=== PATIENT | male | born 1950 | race Caucasian/White ===

== ENCOUNTER → 2017-07-06 08:36 | Outpatient (CLI) | payer MEDICARE, OTHER, SELFPAY | PROVIDERS: Family Provider Internal Medicine; PCP Internal Medicine; Visit Provider Internal Medicine | DX: I49.3 Ventricular premature depolarization (principal) | CPT/HCPCS: 93225; 93226 ==

== ENCOUNTER → 2017-07-19 14:11 | Outpatient (CLI) | payer MEDICARE, OTHER, SELFPAY ==
[2017-07-19 15:16] LABS: Absolute Lymphocyte Count 2.45 X10^3/ul (0.83-4.51); Absolute Neutrophil Count 2.7 X10^3/uL (2.0-7.7); Basophil# 0.02 X10^3/uL; Basophil% 0.3 % (0-1); Eosinophil# 0.24 X10^3/uL; Eosinophils% 4.1 % (0-5); Hemoglobin 14.5 g/dl (13.0-16.5); Lymphocyte # 2.45 X10^3/ul (4.0); Lymphocyte % 41.7 % (19-41); Mean Corpuscular Hgb 29.5 pg (27.0-32.0); Mean Corpuscular Volume 89.4 fL (80-94); Mean Platelet Vol. 10.5 fl (6.2-12.0); Monocyte% 8.5 % (0-10); Neutrophil # 2.66 X10^3/uL (2.7-7.7); Neutrophil % 45.2 % (47-70); Platelet Count 173 K/mm3 (150-450); RBC Distribution Width CV 13.6 % (11.6-14.6); RBC Distribution Width SD 44.3 fl (35.1-43.9); Red Blood Count 4.92 M/mm3 (4.6-6.2); White Blood Count 5.9 K/mm3 (4.4-11.0)
[2017-07-19 15:42] LABS: POSITIVE COUNT NO; POSITIVE DIFFERENTIAL NO; POSITIVE MORPHOLOGY NO
[2017-07-19 15:53] LABS: Anion Gap 9 (5-15); BUN 29 mg/dL (7-18); BUN/Creat Ratio 28.2 RATIO (10-20); Calcium,Total 8.8 mg/dL (8.5-10.1); Chloride 104 mmol/L (98-107); Creatinine, Serum 1.03 mg/dL (0.70-1.30); EST Glomerular Filtration Rate 76 mL/min (>60); Est Glom Filt Rate - Afr Amer 92 mL/min (>60); Glucose 82 mg/dL (74-106); Potassium 3.8 mmol/L (3.5-5.1); Sodium Level 139 mmol/L (136-145); T4 Total, Thyroxin 9.6 ug/dL (4.5-12.1); Thyroid Stim Hormone (TSH) 1.35 uIU/mL (0.358-3.74)
[2017-07-19 16:15] LABS: BNP,B-Type NATRIURETIC PEPTIDE 96.6 pg/mL (0-100)
== END ==
PROVIDERS: Family Provider Internal Medicine; PCP Internal Medicine; Visit Provider Physician Assistant Medical
DX: I10 Essential (primary) hypertension (principal); I25.10 Atherosclerotic heart disease of native coronary artery without angina pectoris; I49.3 Ventricular premature depolarization; E78.00 Pure hypercholesterolemia, unspecified; R06.09 Other forms of dyspnea; M47.817 Spondylosis without myelopathy or radiculopathy, lumbosacral region; M51.37 Other intervertebral disc degeneration, lumbosacral region; M54.17 Radiculopathy, lumbosacral region
CPT/HCPCS: 36415; 80048; 83880; 84436; 84443; 85025; 97113

== ENCOUNTER → 2017-07-27 06:58 | Outpatient (CLI) | payer MEDICARE, OTHER, SELFPAY ==
[2017-07-27 10:30] LABS: Absolute Lymphocyte Count 1.67 X10^3/ul (0.83-4.51); Absolute Neutrophil Count 4.9 X10^3/uL (2.0-7.7); Basophil# 0.01 X10^3/uL; Basophil% 0.1 % (0-1); Eosinophil# 0.35 X10^3/uL; Eosinophils% 4.6 % (0-5); Hematocrit 43.6 % (40-54); Hemoglobin 14.7 g/dl (13.0-16.5); Lymphocyte # 1.67 X10^3/ul (4.0); Lymphocyte % 21.9 % (19-41); Mean Corp Hgb Conc 33.7 g/gl (32-36); Mean Corpuscular Hgb 30.1 pg (27.0-32.0); Mean Corpuscular Volume 89.3 fL (80-94); Mean Platelet Vol. 10.7 fl (6.2-12.0); Monocyte# 0.66 X10^3/uL; Monocyte% 8.7 % (0-10); Neutrophil % 64.4 % (47-70); Platelet Count 170 K/mm3 (150-450); RBC Distribution Width CV 13.7 % (11.6-14.6); RBC Distribution Width SD 44.2 fl (35.1-43.9); Red Blood Count 4.88 M/mm3 (4.6-6.2); White Blood Count 7.6 K/mm3 (4.4-11.0)
[2017-07-27 10:34] LABS: POSITIVE COUNT NO; POSITIVE DIFFERENTIAL NO; POSITIVE MORPHOLOGY NO
[2017-07-27 10:59] LABS: Anion Gap 10 (5-15); BUN 24 mg/dL (7-18); Calcium,Total 8.9 mg/dL (8.5-10.1); Chloride 105 mmol/L (98-107); EST Glomerular Filtration Rate 118 mL/min (>60); Est Glom Filt Rate - Afr Amer 143 mL/min (>60); Glucose 93 mg/dL (74-106); Potassium 4.1 mmol/L (3.5-5.1); Sodium Level 141 mmol/L (136-145)
--- NOTE | 2017-07-27 12:50 | STRESSREP_ITS ---
Stress Test Report Exercise myocardial perfusion stress test. 67 year old man with a history of chest pain and shortness of breath status post coronary bypass surgery in 2003. Stress protocol: Resting EKG demonstrates normal sinus rhythm with a rate of 68 bpm. Occasional premature ventricular complexes noted. Resting blood pressure is 132/80 mmHg. The patient exercised according to the modified Seth protocol total duration of 9 minutes. The maximum heart rate attained was 141 bpm which was 93% of maximum predicted heart rate the maximum workload attained was 4.6 metabolic equivalents. Patient maintained sinus rhythm throughout the recording with occasional premature ventricular complexes noted. At rest there were no ST or T -wave changes noted suggest ischemia and at peak exercise upsloping ST changes only were noted with no meet the criteria for ischemia. Resting blood pressure is 132/80 with a peak blood pressure 144/68. Myocardial perfusion protocol. 14.3 mCi of technetium 99m sestamibi was injected at rest. The patient exercised with the modified Seth protocol attaining 4.6 metabolic equivalents. At peak exercise 44.1 mCi of technetium 99m sestamibi was injected. Stress images were obtained. Stress and rest images were reconstructed and compared in the short axis vertical long and horizontal long axis. Gated images were also obtained. Perfusion SPECT analysis: Review of the stress images demonstrate normal uptake of tracer noted in the septum anterior wall and lateral wall. The mid inferior wall has a small defect noted on the stress images which totally improves on the resting images suggesting medial amount of ischemia noted in the inferior wall. No previous infarct is noted. Fair amount of GI attenuation artifact noted. Gated SPECT analysis. The gated ejection fraction is noted to be 67%. a small zone of mid inferior ischemia noted at a low workload. Conclusion: Exercise myocardial perfusion stress test with a small zone of mid inferior ischemia noted at a low workload. Preserved ejection fraction noted.
== END ==
PROVIDERS: Family Provider Internal Medicine; PCP Internal Medicine; Visit Provider Physician Assistant Medical
DX: I49.3 Ventricular premature depolarization (principal); I25.10 Atherosclerotic heart disease of native coronary artery without angina pectoris; R06.09 Other forms of dyspnea; I10 Essential (primary) hypertension; E78.00 Pure hypercholesterolemia, unspecified; R06.02 Shortness of breath; E29.1 Testicular hypofunction
CPT/HCPCS: 36415; 78452; 80048; 84403; 85025; 93017; A9500; A4216

== ENCOUNTER → 2017-08-15 08:02 | Day surgery (SDC) | payer MEDICARE, OTHER, SELFPAY ==
[2017-08-12 10:53] VITALS: BMI 31.1
--- NOTE | 2017-08-15 11:53 | CL.D_ITS ---
Patient Name: LAUREN KELLY Study Date: 08/15/2017 Performing: Daniel Sánchez MD Ht: 68.11 inches 173 cm : 1950 Wt: 205.03 lbs 93 kg Age: 67 Gender: male BSA: 2.07 PROCEDURE(S) PERFORMED FA80-DFS/COR/LV/CABG CLINICAL PROFILE AND INDICATIONS INDICATIONS: Gentleman with a history of coronary artery disease and shortness of breath as well as mild inferior ischemia Stress/Imaging Standard Exercise Stress Test: Yes Result: Positive Low Risk CAD Presentations: Symptom unlikely to be ischemic. CONCLUSIONS [place] coronary artery disease with coronary bypass graft with 4 out of 5 bypass grafts patent. Area of ischemia was noted to be in the inferior wall which appears to be well revascularized. Mild left ventricular systolic dysfunction. RECOMMENDATIONS We will continue aggressive medical therapy especially as area of ischemia is not related to the diag onal stenosis. Weight loss and risk factor modification. Above discussed with interventionalist DESCRIPTION OF PROCEDURE The patient arrived to the procedure lab. The risks and benefits of the procedure as well as a full d escription of our services here and current unavailability of surgical backup were fully explained to the patient and/or their significant other prior to the catheterization. The Timeout was completed, verifying the correct patient and procedure. The patient's procedural site was prepped and draped in the usual fashion. Local anesthetic was given subcutaneously to right groin region with Lidocaine 2%. Using a modified Seldinger technique, arterial access was obtained via the right femoral artery, a 5 Fr sheath was inserted. Left Coronary Artery selective angiography was performed in multiple views u sing a 5 Fr. JL4 catheter. Right Coronary Artery selective angiography was then performed in multiple views using a 5 Fr. 3DRC (Wilfredo) catheter. Saphenous Vein graft to the Ramus and Circumflex selec tive angiography was performed in multiple views using a 5 Fr. 3DRC (Wilfredo) catheter. Saphenous Ve in graft to the LAD selective angiography was performed in multiple views using a 5 Fr. 3DRC (Mike burnett) catheter. Saphenous Vein graft to the RCA selective angiography was performed in multiple views us ing a 5 Fr. 3DRC (Wilfredo) catheter. Left internal mammary artery graft to the DIAG 1 selective aiden ography was performed in multiple views using a 5 Fr. 3DRC (Wilfredo) catheter. Left Ventriculography was performed in BOX projection using a 5 Fr. Pigtail catheter. LV to AO pullback pressures were the n recorded.The arterial sheath was pulled and a Mynx closure device was deployed for hemostasis, with Dr Novoa assistance CORONARY ANGIOGRAPHY DOMINANCE: Right Dominant LEFT HEART ASSESSMENT Left Ventricular Ejection Fraction: by LV Gram 45 % Depressed Left Ventricular systolic function LEFT MAIN: Moderate luminal irregularities up to 50% LEFT ANTERIOR DECENDING ARTERY: MID LAD: is occluded DIAGONAL 1: Proximal - long 70-80 % Stenosis CIRCUMFLEX ARTERY: PROX CIRC: is occluded RIGHT CORONARY ARTERY: Mild luminal irregularities MID RCA: 70 % Stenosis DISTAL RCA: diffuse 70-80 GRAFTS: YOUNG graft to the 1st Diagonal atretic Saphenous Vein graft to the RPDA is patent Saphenous Vein graft to the LAD is patent Sequential graft to the OM and Ramus is patent COMPLICATIONS No Complications PROCEDURE MEDICATIONS Versed 1 mg IV Versed 1 mg IV Versed 1 mg IV Oxygen: 2 L/min via nasal cannula Baby Aspirin (81mg) 1 Tabs PO @ 08/15/2017 09:24:00 SUMMARY OF HEMODYNAMIC DATA Time AIR REST ECG 08:52:30 AO 120/73 (96) SA 10:09:20 LV 122/8, 20 10:24:57 LV 117/4, 14 10:25:04 LV 121/5, 19 10:26:04 LVp 128/12, 18 10:26:10 AOp 129/65 (92) 10:26:15 Signed By Daniel Sánchez MD On 08/15/2017 11:53:02 Daniel Sánchez MD
== END ==
PROVIDERS: Family Provider Internal Medicine; PCP Internal Medicine; Visit Provider Internal Medicine Cardiovascular Disease
DX: I25.10 Atherosclerotic heart disease of native coronary artery without angina pectoris (principal); R06.02 Shortness of breath; Z95.1 Presence of aortocoronary bypass graft; I99.8 Other disorder of circulatory system; Z86.718 Personal history of other venous thrombosis and embolism; I10 Essential (primary) hypertension; E78.5 Hyperlipidemia, unspecified; I49.3 Ventricular premature depolarization; Z82.49 Family history of ischemic heart disease and other diseases of the circulatory system; Z79.899 Other long term (current) drug therapy; R06.09 Other forms of dyspnea
CPT/HCPCS: 93459; 99152; 99153; C1760; J7040; Q9967; C1769

== ENCOUNTER 2017-08-20 09:08 | Emergency (ER) | payer MEDICARE, OTHER, SELFPAY ==
[2017-08-20 09:11] VITALS: BP 118/68; PULSE 54; RESP 16; TEMP 36.6; O2SAT 94; BMI 29.7
--- NOTE | 2017-08-20 10:01 | ED.VISSUMM ---
- ER Visit Summary Date of Service: 08/20/17 Chief Complaint: Right groin at cath site History of Present Illness: The patient is a 67 M who underwent cardiac catheterization by Dr. Sánchez on Tuesday. Patient states his Xarelto was held a week prior. He was placed on Plavix. He resumed Xarelto 2 days after cardiac catheterization, August 17. He states last evening he noted some discomfort. This morning he noted this a lump that is very painful. He denies fever, chills night sweats. He denies paresthesia, anesthesia or motor weakness. He denies any drainage from the cardiac catheterization site. He is on Xarelto secondary to 3 provoked VTE(s). Physical Examination: Examination of the right ankle area reveals cardiac catheterization site. There is a small eschar noted. There is no erythema, warmth, fluctuance, induration or lymphangitis. There is no inguinal lymphadenopathy. There is a small palpable firm nonpulsatile mass the size of a chickpea. There is no neurovascular distal findings/abnormalities. Test Results: Ultrasound of the site was performed by vt which reveals a fluid-filled cavity. There is no neck noted. The mass/cavity appears to be fluid-filled and is not compressible. Emergency Department Course and Treatment: Patient's history and findings were discussed Dr. Sánchez. Plan is to hold Xarelto until Tuesday and for patient to call Dr. Claros on Tuesday. Treatment Plan: Hold Xarelto until Tuesday Disposition: Discharged to home. Patient states he does have pain medicine at home. Impression: Bleeding post cardiac catheterization at catheterization site with small hematoma This note was generated with [employer] dictation software. It may contain incorrect words, spelling, and punctuation that were not noted in review of the chart prior to signing ED Disposition - Plan for ED Patient: Disposition: Home or Assisted Living Chief Complaint: Wound Check Instructions: ED Wound Check Post Op Bleeding, ED Post Op Pain Referrals: Kami Costa DO [Primary Care Provider] - Daniel Sánchez MD [STAFF PHYSICIAN] - As Needed Additional Instructions: Do not take any Xarelto until Tuesday. Call for his office on Tuesday to let staff know how you are doing.
--- NOTE | 2017-08-20 10:07 | ED.DCSUM_ITS ---
- ER Visit Summary Date of Service: 08/20/17 Chief Complaint: Right groin at cath site History of Present Illness: The patient is a 67 M who underwent cardiac catheterization by Dr. Sánchez on Tuesday. Patient states his Xarelto was held a week prior. He was placed on Plavix. He resumed Xarelto 2 days after cardiac catheterization, August 17. He states last evening he noted some discomfort. This morning he noted this a lump that is very painful. He denies fever, chills night sweats. He denies paresthesia, anesthesia or motor weakness. He denies any drainage from the cardiac catheterization site. He is on Xarelto secondary to 3 provoked VTE(s). Physical Examination: Examination of the right ankle area reveals cardiac catheterization site. There is a small eschar noted. There is no erythema, warmth, fluctuance, induration or lymphangitis. There is no inguinal lymphadenopathy. There is a small palpable firm nonpulsatile mass the size of a chickpea. There is no neurovascular distal findings/abnormalities. Test Results: Ultrasound of the site was performed by ma which reveals a fluid- filled cavity. There is no neck noted. The mass/cavity appears to be fluid- filled and is not compressible. Emergency Department Course and Treatment: Patient's history and findings were discussed Dr. Sánchez. Plan is to hold Xarelto until Tuesday and for patient to call Dr. Claros on Tuesday. Treatment Plan: Hold Xarelto until Tuesday Disposition: Discharged to home. Patient states he does have pain medicine at home. Impression: Bleeding post cardiac catheterization at catheterization site with small hematoma This note was generated with [employer] dictation software. It may contain incorrect words, spelling, and punctuation that were not noted in review of the chart prior to signing ED Disposition - Plan for ED Patient: Disposition: Home or Assisted Living Chief Complaint: Wound Check Instructions: ED Wound Check Post Op Bleeding, ED Post Op Pain Referrals: Kami Costa DO [Primary Care Provider] - Daniel Sánchez MD [STAFF PHYSICIAN] - As Needed Additional Instructions: Do not take any Xarelto until Tuesday. Call for his office on Tuesday to let staff know how you are doing.
[2017-08-20 10:14] VITALS: RESP 17
== END 2017-08-20 10:31 | disposition home or self-care (01) ==
LOC: ED 10:27
PROVIDERS: Emergency Provider Emergency Medicine; Family Provider Internal Medicine; PCP Internal Medicine
DX: L76.22 Postprocedural hemorrhage of skin and subcutaneous tissue following other procedure (principal); L76.32 Postprocedural hematoma of skin and subcutaneous tissue following other procedure; I25.10 Atherosclerotic heart disease of native coronary artery without angina pectoris; I10 Essential (primary) hypertension; E11.9 Type 2 diabetes mellitus without complications; Z79.01 Long term (current) use of anticoagulants; Z79.84 Long term (current) use of oral hypoglycemic drugs; Z79.82 Long term (current) use of aspirin; Z79.899 Other long term (current) drug therapy
CPT/HCPCS: 99282

== ENCOUNTER 2017-09-08 08:00 | Outpatient (RCR) | payer MEDICARE, OTHER, SELFPAY ==
--- NOTE | 2017-07-15 12:32 | HP.PTEVAL ---
Patient's Visit Information LAUREN KELLY is a 67 year old M referred to Physical Therapy by MD REUBEN Villavicencio with a diagnosis of lumbosacral spondylosis, intervetebral disc degeneration lumbosacral, radic. Date of Evaluation: 07/15/17 Physical Therapist: Mg Caballero - Visit Plan Frequency: 2x /Week Duration: 4 Weeks Plan: Start with core strengthening, extension progression, deep water hanging, general mobility in aquatic setting. Progressing to land as tolerated. - Subjective Subjective: Pt. is here today for his initial evaluation with diagnosis of lumbosacral spondylosis, intervetebral disc degeneration lumbosacral, radiculopathy of lumbosacral region. Pt. is a plesant 67 y.o. male who reports having increased pain over the last 8-10 weeks, but has a history of back pain. He reports curently having LBP and radiaiting symptoms down his L leg. He reports pain is intermittent and has notice increased limping with gait. Pt. denies mechanism of injury, but has had a gradual increase in symptoms. He is however been able to skii without much issues. Increases pain: bending, lifting, twisting, walking, prolonged sitting. Decreased symptoms: lying on back with knee bent Pt. did have recent injection with 5-6 days of relief.. Previously he was able to complete press ups with good reduction in symptoms, but not currently. He denies B/B changes, but does have tingling into LEs. Pt. reports no saddle region pain. Pt. is hopeful to reduce symptoms in order to get back to PLOF without issues. - Pain Lumbar spine Pain Intensity (Out of 10): 4 Pain Intensity Range: 2, 8 L leg Pain Intensity (Out of 10): 3 Pain Intensity Range: 0, 8 - Objective POSTURE: Pt. has normal iliac crest heights, pt. has reduced lumbar lordosis with sway back positioning. Pt. has equal WBing throughout LEs. Pt. tends to have L knee in slight knee flexion. PALPATION: Pt. has increased tenderness with palpation fo lumbar erector spinea, increased pain at gluteal region on L side, non on R side. PT. has no pain at greater trochanter. Pt. has mild increase in symptoms with spring testing to L3-S1, with hypombility noted. NEUROLOGICAL: Pt. has slight reduction in sensation at left distal lateral leg with ligth touch, normal thoruhgout legs with sharp touch. Pt. has 2+ R achilles adn patellar DTR, pt. has 1+ L achilles and 2+ L patellar DTR. Pt. is able to rise on heels and toes without LOB, but requires balance aide to complete. ROM: LUMBAR SPINE: flexion- min loss increase NW, ext mod loss increase NW, rotation min loss bilat increase NW, SB min loss bilat increase NW. Pt. has tight B hamstrings and hip flexors. Normal hip ROM bilaterally. MMT: RLE- ankle/knee 5/5 throughout; hip- flexion 4+/5 increase NW, abd 4/5, ext 4/. LLE- ankle Df 5/5, PF 4+/5, knee- ext 4+/5, flexion 5/5; hip- flexion 4/5, increase NW, abd 4/5 NE, ext 4+/5. Core strength- poor. GAIT: Pt. ambulates without AD, but has lateral fall off onto LLE. Pt. has slight lag in quad activtation during initial contact and stance phase. STAIRS: Pt. is able to negotiate wtih reciprocal pattern with use of B HR. - Special Tests L/S Slump test left side: Positive L/S Slump test right side: Negative L/S Left Straight Leg Raise: Negative L/S Right Straight Leg Raise: Negative Lumbar Standing: Flexion - Mechanical Response: No effect Lumbar Standing: Flexion - Symptoms During Testing: Increases Lumbar Standing: Flexion - Symptoms After Testing: No worse Lumbar Standing: Extension - Mechanical Response: No effect Lumbar Standing: Extension - Symptoms During Testing: Increases Lumbar Standing: Extension - Symptoms After Testing: No worse Lumbar Standing: Right Side Glides - Mechanical Response: No effect Lumbar Standing: Right Side [place] - Symptoms During Testing: No effect Lumbar Standing: Right Side [place] - Symptoms After Testing: No effect Lumbar Standing: Left Side [place] - Mechanical Response: No effect Lumbar Standing: Left Side [place] - Symptoms During Testing: No effect Lumbar Standing: Left Side [place] - Symptoms After Testing: No effect Lumbar Lying: Flexion - Mechanical Response: No effect Lumbar Lying: Flexion - Symptoms During Testing: No effect Lumbar Lying: Flexion - Symptoms After Testing: No effect Lumbar Lying: Extension - Mechanical Response: No effect Lumbar Lying: Extension - Symptoms During Testing: Abolishes Lumbar Lying: Extension - Symptoms After Testing: No worse Lumbar Static: Slouched Sit - Mechanical Response: No effect Lumbar Static: Slouched Sit - Symptoms During Testing: No effect Lumbar Static: Slouched Sit - Symptoms After Testing: No effect Lumbar Static: Sitting Erect - Mechanical Response: No effect Lumbar Static: Sitting Erect - Symptoms During Testing: No effect Lumbar Static: Sitting Erect - Symptoms After Testing: No effect Lumbar Static:Lying Prone in Extension - Mechanical Response: No effect Lumbar Static: Lying Prone in Extension - Sx During Testing: Increases Lumbar Static: Lying Prone in Extension - Sx After Testing: No worse - Goals Goal 1:: Pt. to be I with HEP. Goal Time Frame: 4-6 Weeks Goal 2:: Pt. to have increased lmbar ROM by 25% throughout allowing for increased tolerance to all functional ADLs. Goal Time Frame: 4-6 Weeks Goal 3:: Pt. to walk unlimited distances without increase in symptoms allowing for increased independence in community. Goal Time Frame: 4-6 Weeks Goal 4:: Pt. to sleep without increase in symptoms allowing for increased quality of life. Goal Time Frame: 4-6 Weeks Goal 5:: Pt. to have increased BLE and core strength by 1/2 grade of all effected musculature reducing stress applied to lumbar spine. Goal Time Frame: 4-6 Weeks - Rehabilitation Potential Physical Therapy Diagnosis: Pt. has signs and symptoms consistent with lumbar nerve issues, which appears to be discogenic in nature. Pt. is not tolerating extension currently and may need to start in aquatic setting to reduce symptoms then progress to land. Pt. has difficulty walking and increased LLE pain and weakness. He would benefit from Pt to address above limiations and progress back to PLOF. Rehabilitation Potential: Fair - Anticipated Interventions Patient/Client Instruction: Educate patient on: Condition, Plan of Care, Risk Factors, Benefits of Fitness Program For the Purpose of:: To improve decision making, To facilitate caregiver knowledge, To improve self management, To prevent re-injury, To improve ability to perform tasks related to life management, To improve tolerance to ADL's Therapeutic Exercise to Include: Strength training, Power training, Agility training, Flexibilty training, In an aquatic setting, Passive ROM, Active ROM, Dynamic Lumbar Stabilization, Carmen Exercises For the Purpose of:: To decrease pain, To decrease swelling/inflammation, To increase ROM, To improve nutrient delivery to tissue, To increase oxygenation perfusion, To improve ability to perform ADL's, To increase tolerance to activity/condition/position, To improve health of tissue, To decrease soft tissue restriction, To increase flexibility/ROM Manual Therapy Techniques to Include: Mobilization, Passive ROM, Functional dry needling, Soft tissue mobilization For the Purpose of:: To decrease pain, To increase ROM, To improve nutrient delivery to tissue, To increase oxygenation perfusion, To improve muscle performance and motor function IF ES: Yes Cryotherapy (ice pack, ice massage): Yes For the Purpose of:: To decrease pain, To increase ROM, To improve nutrient delivery to tissue, To increase oxygenation perfusion Thank you for the opportunity to evaluate your patient. For Medicare and Medicare HMO plans, please review the plan of care and approve it. It will need to be FAXED BACK to us at [phone] for Medicare purposes. Please let me know if there are questions or concerns regarding this plan of care. Physician Signature: Date:
--- NOTE | 2017-09-19 07:37 | HP.PTREVAL_ITS ---
Anthony Lemon MD, It has been my pleasure to treat LAUREN KELLY over the last 7 visits for lumbosacral spondylosis, intervetebral disc degeneration lumbosacral, radic. Please see the progress note below for an update on the physical therapy plan of care! Subjective: Pt. reports I am doing a little better, but I still get back with bending backward and with longer walks. Pt. reports being sick and was unable to attend PT. Pt. continues to have increased pain in L leg with prolonged walking and numbness during same time frame. Pt. did report occassional feeling like him leg wants to give out on him. Objective/Function: LUMBAR ROM: flexion- nil loss NE, ext mod loss increase NW ( peripherilizes symtpoms), SB ni loss bilat NE, rotations min loss NE bilat. HIP ROM- normal bilaterally NE. MMT- RLE- ankle 5/5 throughout; knee- ext 5/5, flexion 5-/5; hip- flexion 4+/5, abd 4/5, ext 4+/5. LLE- ankle PF 5/5, DF 4+/5; knee- ext 4+/5, flexion 4+/5; hip- flexion 4/5 increase NW, abd 4/5, ext 4/5. Gait: pt. has sway back positioning. Pt. walks with antalgic pattern during L stance phase. Pt. reports increased pain during L stance phase. Disscussed following up with physician due to neural symptoms and leg giving out on him, pt. consents. Plan Plan: Disscussed following up with physician due to neural symptoms and leg giving out on him, pt. consents. pt. to follow up with physician at this point in time. I will Dc in 3-4 weeks if pt. does not return. Goals Goal 1:: Pt. to be I with HEP. Goal Time Frame: 4-6 Weeks Goal Progress: Goal Met Goal 2:: Pt. to have increased lmbar ROM by 25% throughout allowing for increased tolerance to all functional ADLs. Goal Time Frame: 4-6 Weeks Goal Progress: Progressing Goal 3:: Pt. to walk unlimited distances without increase in symptoms allowing for increased independence in community. Goal Time Frame: 4-6 Weeks Goal Progress: Not Progressing Goal 4:: Pt. to sleep without increase in symptoms allowing for increased quality of life. Goal Time Frame: 4-6 Weeks Goal Progress: Progressing Goal 5:: Pt. to have increased BLE and core strength by 1/2 grade of all effected musculature reducing stress applied to lumbar spine. Goal Time Frame: 4-6 Weeks Goal Progress: Progressing Anticipated Interventions Patient/Client Instruction: Educate patient on: Condition, Plan of Care, Risk Factors, Benefits of Fitness Program For the Purpose of:: To improve decision making, To facilitate caregiver knowledge, To improve self management, To prevent re-injury, To improve ability to perform tasks related to life management, To improve tolerance to ADL's Therapeutic Exercise to Include: Strength training, Power training, Agility training, Flexibilty training, In an aquatic setting, Passive ROM, Active ROM , Dynamic Lumbar Stabilization, Carmen Exercises For the Purpose of:: To decrease pain, To decrease swelling/inflammation, To increase ROM, To improve nutrient delivery to tissue, To increase oxygenation perfusion, To improve ability to perform ADL's, To increase tolerance to activity/condition/position, To improve health of tissue, To decrease soft tissue restriction, To increase flexibility/ROM Manual Therapy Techniques to Include: Mobilization, Passive ROM, Functional dry needling, Soft tissue mobilization For the Purpose of:: To decrease pain, To increase ROM, To improve nutrient delivery to tissue, To increase oxygenation perfusion, To improve muscle performance and motor function IF ES: Yes Cryotherapy (ice pack, ice massage): Yes For the Purpose of:: To decrease pain, To increase ROM, To improve nutrient delivery to tissue, To increase oxygenation perfusion Please do not hesitate to contact me at [phone] by phone or Fax: if you have questions or concerns regarding this new plan of care! Sincerely, Mg Caballero
--- NOTE | 2018-03-09 10:48 | HP.PT.NRP ---
HP - Discharge Summary (1) - Patient Information LAUREN KELLY was seen in my office for initial evaluation on 07/15/17. The following Plan of Care was established for this patient: Initial Frequency: 2x /Week Initial Duration: 4 Weeks - Anticipated Interventions Patient/Client Instruction: Educate patient on: Condition, Plan of Care, Risk Factors, Benefits of Fitness Program For the Purpose of:: To improve decision making, To facilitate caregiver knowledge, To improve self management, To prevent re-injury, To improve ability to perform tasks related to life management, To improve tolerance to ADL's Therapeutic Exercise to Include: Strength training, Power training, Agility training, Flexibilty training, In an aquatic setting, Passive ROM, Active ROM, Dynamic Lumbar Stabilization, Carmen Exercises For the Purpose of:: To decrease pain, To decrease swelling/inflammation, To increase ROM, To improve nutrient delivery to tissue, To increase oxygenation perfusion, To improve ability to perform ADL's, To increase tolerance to activity/condition/position, To improve health of tissue, To decrease soft tissue restriction, To increase flexibility/ROM Manual Therapy Techniques to Include: Mobilization, Passive ROM, Functional dry needling, Soft tissue mobilization For the Purpose of:: To decrease pain, To increase ROM, To improve nutrient delivery to tissue, To increase oxygenation perfusion, To improve muscle performance and motor function IF ES: Yes Cryotherapy (ice pack, ice massage): Yes For the Purpose of:: To decrease pain, To increase ROM, To improve nutrient delivery to tissue, To increase oxygenation perfusion This patient was last seen in our office 12/15/17. Pertinent comments regarding their Physical therapy will appear below: Pt. was treated for his low back pain. Pt. was having mild relief with PT and was to follow up with physician about injections. Pt. has not been back in several months and will be DC from PT at this point in time. At this point I will be discontinuing this patient from physical therapy. I would be happy to see this patient again in the future if found appropriate by the physician. Thank you! Mg Caballero
== END 2017-09-08 19:00 | disposition home or self-care (01) ==
LOC: PT 08:00
PROVIDERS: Family Provider Internal Medicine; PCP Internal Medicine; Visit Provider Anesthesiology Pain Medicine
DX: M47.817 Spondylosis without myelopathy or radiculopathy, lumbosacral region (principal); M51.37 Other intervertebral disc degeneration, lumbosacral region; M54.17 Radiculopathy, lumbosacral region
CPT/HCPCS: 97110; 97113; 97162; 97530

== ENCOUNTER 2018-04-12 13:51 | Outpatient (RCR) | payer MEDICARE, OTHER, SELFPAY | END 2018-04-12 19:00 | disposition home or self-care (01) | LOC: PT 13:51 | PROVIDERS: Family Provider Internal Medicine; PCP Internal Medicine; Referring Provider Nurse Practitioner Family; Visit Provider Nurse Practitioner Family | DX: M47.817 Spondylosis without myelopathy or radiculopathy, lumbosacral region (principal); M51.37 Other intervertebral disc degeneration, lumbosacral region; M54.17 Radiculopathy, lumbosacral region ==

== ENCOUNTER → 2018-05-08 16:23 | Outpatient (CLI) | payer MEDICARE, OTHER, SELFPAY ==
[2018-02-15 12:10] VITALS: BMI 29.6
--- NOTE | 2018-05-08 16:28 | RAD_ITS ---
STUDY: X-RAY CHEST REASON FOR EXAM: Male, 68 years old. Asthma TECHNIQUE: Frontal and lateral views of the chest COMPARISON: 06/16/2017 FINDINGS: The lungs are clear. There are no pleural effusions. There is no pneumothorax. The heart is normal in size. Again noted are sternotomy wires. RAD/Chest PA and Lateral IMPRESSION: No acute thoracic pathology. Electronically Signed: Duc Trinidad, at 17:01 EST Tel , Service support ,
== END ==
PROVIDERS: Family Provider Internal Medicine; PCP Internal Medicine; Referring Provider Nurse Practitioner; Visit Provider Nurse Practitioner
DX: J45.41 Moderate persistent asthma with (acute) exacerbation (principal)
CPT/HCPCS: 71046

== ENCOUNTER 2018-08-08 09:00 | Outpatient (RCR) | payer MEDICARE, OTHER, SELFPAY ==
--- NOTE | 2018-06-29 16:27 | HP.PTEVAL_ITS ---
Patient's Visit Information LAUREN KELLY is a 68 year old M referred to Physical Therapy by DANIEL Velasco with a diagnosis of L SI dysfunction. Date of Evaluation: 06/09/18 Physical Therapist: Mg Caballero DPT - Visit Plan Frequency: 1-2x /Week Duration: 4-6 Weeks Plan: Start with US to R SI and piriformis muscle. Core stability exercises. Focus on calming symptoms then progressing core stability around it. - Subjective Findings: Pt. is here today for his initial evaluation with diagnosis of sacral pain, disorder. Pt. reports having a nerve ablasion with good results, but is now having some L sided SI and radiating pain. Pt. reports increased pain with walking, sitting, lifting. Pt. reports pain into his buttock and slightly down his leg at times. Pt. reports having relief with lying down. He reports having a constant symptosm of 3/10, but shocking pain at times which is 8-9/10. Pt. is hopeful to reduce symptoms in order to get back to all recreational activities without limitations. - Pain L side of SI Pain Intensity (Out of 10): 3 Pain Intensity Range: 2, 6 - Objective POSTURE: Pt. has sway back posture in stance. Decreased glute muscle mass, anterior pelvic tilt. PALPATION: PT. has increased tenderness at R sided R, R sided paraspinals and R sided gluteal region. NEURO: Pt. has normal senstation throughout BLEs. Normal DTR of BLEs. Pt. is able to rise on heels and toes. ROm: Lumbar spine: flexion mod loss increase nW, ext mod loss increase nW, SB nil loss NE, rotaion min loss NE. Pt. has decreased L hip IR (30deg), ER 45deg NE. Pt. has increased tightness in his HS and decreased hip flexor length. MMT: Pt. has 5/5 strength throughout BLEs, except hip abd 4/5 bilat, hip ext 4/5 bilat. Core stregth- poor. - Special Tests L/S Slump test left side: Negative L/S Slump test right side: Negative L/S Left Straight Leg Raise: Negative L/S Right Straight Leg Raise: Negative Lumbar Standing: Flexion - Mechanical Response: No effect Lumbar Standing: Flexion - Symptoms During Testing: Increases Lumbar Standing: Flexion - Symptoms After Testing: No worse Lumbar Standing: Extension - Mechanical Response: No effect Lumbar Standing: Extension - Symptoms During Testing: Increases Lumbar Standing: Extension - Symptoms After Testing: No worse Lumbar Lying: Flexion - Mechanical Response: No effect Lumbar Lying: Flexion - Symptoms During Testing: Decreases Lumbar Lying: Flexion - Symptoms After Testing: Better Lumbar Lying: Extension - Mechanical Response: No effect Lumbar Lying: Extension - Symptoms During Testing: Increases Lumbar Lying: Extension - Symptoms After Testing: No worse Lumbar Static: Slouched Sit - Mechanical Response: No effect Lumbar Static: Slouched Sit - Symptoms During Testing: No effect Lumbar Static: Slouched Sit - Symptoms After Testing: No effect Lumbar Static: Sitting Erect - Mechanical Response: No effect Lumbar Static: Sitting Erect - Symptoms During Testing: No effect Lumbar Static: Sitting Erect - Symptoms After Testing: No effect - Goals Goal 1:: Pt. to be I with HEP. Goal Time Frame: 4-6 Weeks Goal 2:: Pt. to walk unlimited distances without incerase in symptoms. Goal Time Frame: 4-6 Weeks Goal 3:: Pt. to have increased core stregnth by 1/2 grade to reduce stress applied to lumbar spine with all functional mobility. Goal Time Frame: 4-6 Weeks Goal 4:: Pt. to have increased lumbar spine ROM by 25% in all ranges without increase in symptoms. Goal Time Frame: 4-6 Weeks Goal 5:: Pt. to sleep throughout the night without increase in symptoms. Goal Time Frame: 4-6 Weeks - Rehabilitation Potential Physical Therapy Diagnosis: Pt. has signs and symptoms of L SI pain, piriformis pain. Pt. is highly irritable in this region. Pt. has incraesed pain with piriformis palpation. Pt. has tightness in this region as well. Pt. would benefit from PT to reduce irritability of symptoms in this region, increase core strength. Rehabilitation Potential: Good - Anticipated Interventions Patient/Client Instruction: Educate patient on: Condition, Plan of Care, Risk Factors, Benefits of Fitness Program For the Purpose of:: To improve decision making, To facilitate caregiver knowled ge, To improve self management, To prevent re-injury, To improve ability to perform tasks related to life management, To improve tolerance to ADL's Therapeutic Exercise to Include: Strength training, Power training, Endurance training, Body mechanics, Postural training, Flexibilty training, Gait and locomotor training, Passive ROM, Active ROM, Dynamic Lumbar Stabilization, Carmen Exercises For the Purpose of:: To decrease pain, To decrease swelling/inflammation, To increase ROM, To improve nutrient delivery to tissue, To increase oxygenation perfusion, To improve health of tissue, To decrease soft tissue restriction, To increase flexibility/ROM Manual Therapy Techniques to Include: Mobilization, Passive ROM, Functional dry needling, Soft tissue mobilization For the Purpose of:: To decrease pain, To decrease swelling/inflammation, To increase ROM, To improve nutrient delivery to tissue, To increase oxygenation perfusion, To improve muscle performance and motor function Other electric stimulation: Yes Cryotherapy (ice pack, ice massage): Yes Thermo therapy (hot pack): Yes Ultrasound (thermal/non thermal): Yes For the Purpose of:: To decrease pain, To decrease swelling/inflammation, To increase ROM, To improve nutrient delivery to tissue, To increase oxygenation perfusion Thank you for the opportunity to evaluate your patient. For Medicare and Medicare HMO plans, please review the plan of care and approve it. It will need to be FAXED BACK to us at [phone] for Medicare purposes. For Medicare only, by signing this I certify the plan of care. Please let me know if there are questions or concerns regarding this plan of care. Physician Signature: Da te:
--- NOTE | 2018-08-08 15:18 | HP.PTREVAL_ITS ---
Marjorie Alex, DANIEL, It has been my pleasure to treat LAUREN KELLY over the last 8 visits for L SI dysfunction. Please see the progress note below for an update on the physical therapy plan of care! Subjective: Pt. reports he is getting an injection in 2 weeks. Pt. would like to complete HEP on own until after his injection. Pt. reports Objective/Function: Pt. tolerated all Pt without adverse reaction. Pt. was given above exercises for his HEP. Pt. is independent with them at this point in time. He is to have an injection in two weeks. He is to follow up with PT if needed. It I do not see him in 3-4 weeks I will assume he is doing well and will DC his case back to physician. Plan Plan: Extended POC x1 per week for 3-4 more weeks. Focsu on core stbaility, glute activitation, decreased L posterior symptoms. Goals Goal 1:: Pt. to be I with HEP. Goal Time Frame: 4-6 Weeks Goal Progress: Goal Met Goal 2:: Pt. to walk unlimited distances without incerase in symptoms. Goal Time Frame: 4-6 Weeks Goal Progress: Progressing Goal 3:: Pt. to have increased core stregnth by 1/2 grade to reduce stress applied to lumbar spine with all functional mobility. Goal Time Frame: 4-6 Weeks Goal Progress: Progressing Goal 4:: Pt. to have increased lumbar spine ROM by 25% in all ranges without increase in symptoms. Goal Time Frame: 4-6 Weeks Goal Progress: Not Progressing Goal 5:: Pt. to sleep throughout the night without increase in symptoms. Goal Time Frame: 4-6 Weeks Goal Progress: Progressing Anticipated Interventions Patient/Client Instruction: Educate patient on: Condition, Plan of Care, Risk Factors, Benefits of Fitness Program For the Purpose of:: To improve decision making, To facilitate caregiver knowledge, To improve self management, To prevent re-injury, To improve ability to perform tasks related to life management, To improve tolerance to ADL's Therapeutic Exercise to Include: Strength training, Power training, Endurance training, Body mechanics, Postural training, Flexibilty training, Gait and locomotor training, Passive ROM, Active ROM, Dynamic Lumbar Stabilization, Carmen Exercises For the Purpose of:: To decrease pain, To decrease swelling/inflammation, To increase ROM, To improve nutrient delivery to tissue, To increase oxygenation perfusion, To improve health of tissue, To decrease soft tissue restriction, To increase flexibility/ROM Manual Therapy Techniques to Include: Mobilization, Passive ROM, Functional dry needling, Soft tissue mobilization For the Purpose of:: To decrease pain, To decrease swelling/inflammation, To increase ROM, To improve nutrient delivery to tissue, To increase oxygenation perfusion, To improve muscle performance and motor function Other electric stimulation: Yes Cryotherapy (ice pack, ice massage): Yes Thermo therapy (hot pack): Yes Ultrasound (thermal/non thermal): Yes For the Purpose of:: To decrease pain, To decrease swelling/inflammation, To increase ROM, To improve nutrient delivery to tissue, To increase oxygenation pe rfusion Please do not hesitate to contact me at [phone] by phone or if you have questions or concerns regarding this new plan of care! Sincerely, ANTHONY CalvilloT
--- NOTE | 2018-10-10 07:20 | HP.PT.NRP ---
HP - Discharge Summary (1) - Patient Information LAUREN KELLY was seen in my office for initial evaluation on 06/09/18. The following Plan of Care was established for this patient: Initial Frequency: 1-2x /Week Initial Duration: 4-6 Weeks - Anticipated Interventions Patient/Client Instruction: Educate patient on: Condition, Plan of Care, Risk Factors, Benefits of Fitness Program For the Purpose of:: To improve decision making, To facilitate caregiver knowledge, To improve self management, To prevent re-injury, To improve ability to perform tasks related to life management, To improve tolerance to ADL's Therapeutic Exercise to Include: Strength training, Power training, Endurance training, Body mechanics, Postural training, Flexibilty training, Gait and locomotor training, Passive ROM, Active ROM, Dynamic Lumbar Stabilization, Carmen Exercises For the Purpose of:: To decrease pain, To decrease swelling/inflammation, To increase ROM, To improve nutrient delivery to tissue, To increase oxygenation perfusion, To improve health of tissue, To decrease soft tissue restriction, To increase flexibility/ROM Manual Therapy Techniques to Include: Mobilization, Passive ROM, Functional dry needling, Soft tissue mobilization For the Purpose of:: To decrease pain, To decrease swelling/inflammation, To increase ROM, To improve nutrient delivery to tissue, To increase oxygenation perfusion, To improve muscle performance and motor function Other electric stimulation: Yes Cryotherapy (ice pack, ice massage): Yes Thermo therapy (hot pack): Yes Ultrasound (thermal/non thermal): Yes For the Purpose of:: To decrease pain, To decrease swelling/inflammation, To increase ROM, To improve nutrient delivery to tissue, To increase oxygenation perfusion This patient was last seen in our office 08/08/18. Pertinent comments regarding their Physical therapy will appear below: Pt. was treated for his sacral pain. Pt. was treated with US, and core stability. Pt. made ligth gains with PT, but had better results with injections. Pt. was to follow up with physician to have injection and follow up with PT if needed. PT. has not been seen in several months and will be DC from PT at this point in time. At this point I will be discontinuing this patient from physical therapy. I would be happy to see this patient again in the future if found appropriate by the physician. Thank you! Mg Caballero, ADEEL
== END 2018-08-08 19:00 | disposition home or self-care (01) ==
LOC: PT 09:00
PROVIDERS: Family Provider Internal Medicine; PCP Internal Medicine; Referring Provider Nurse Practitioner Family; Visit Provider Nurse Practitioner Family
DX: M47.817 Spondylosis without myelopathy or radiculopathy, lumbosacral region (principal); M51.37 Other intervertebral disc degeneration, lumbosacral region; M54.17 Radiculopathy, lumbosacral region; M53.3 Sacrococcygeal disorders, not elsewhere classified
CPT/HCPCS: 97035; 97110; 97161; 97530

== ENCOUNTER 2019-01-07 08:58 | Emergency (ER) | payer MEDICARE, OTHER, SELFPAY ==
[2018-12-11 08:36] VITALS: BMI 31.3
[2019-01-07 08:59] VITALS: BP 146/72; PULSE 70; RESP 18; TEMP 36.1; O2SAT 96; BMI 30.4
[2019-01-07 09:25] LABS: Mucous, Urine 0 SEEN /hpf (<or=2+)
[2019-01-07 09:27] LABS: Color, Urine Yellow (Yellow); Glucose, Dipstick Normal (Normal); Ketone-Dipstick Negative (Negative); Leukocyte Esterase-Dipstick 500 /ul (Negative); Nitrite-Dipstick Positive (Negative); Occult Blood-Urine 250 /ul (Negative); Protein-Dipstick 100 mg/dl (Negative); Urine Bilirubin Dipstick Negative (Negative); Urine Clarity Cloudy (Clear); Urine Urobilinogen Normal (Normal); Urine pH 6.5 (5.0 - 8.0)
[2019-01-07 09:33] LABS: Bacteria 1+ /hpf (None Seen); Red Blood Cells-Urine 25-50 SEEN /hpf (0-5); Squamous Epithelial Cells - UA 0-5 SEEN /hpf (0-5); White Blood Cells 25-50 SEEN /hpf (0-5)
--- NOTE | 2019-01-07 10:03 | ED.VIS.GEN ---
History of Present Illness Informant: Patient Onset: Yesterday Context: Gradual Onset Timing: Continuous Quality: Aching Location: Scrotum Current Severity: Moderate Maximum Severity: Moderate Worsened by: Movement and palpation Relieved by: Rest Associated Symptoms: Dysuria, frequency and urgency Narrative: 68-year-old male presents to the emergency department with swelling and pain of his scrotum worse on the right. He also is having dysuria with frequency and urgency. He has been able to urinate but it does take him slightly longer to empty his bladder than what is normal for him. No fevers or chills. No trauma. No back pain. Has a history of similar symptoms 3 years ago that required a urologic procedure per the patient to relieve symptoms. No recent antibiotic use. No penile discharge. Prior similar symptoms: Yes Recent Illness/Hospitalization: No <Damian Fu - Last Filed: 01/07/19 13:33> <Char Downing - Last Filed: 01/07/19 15:12> Chief Complaint: Complaint Past Medical History Prior records reviewed: Yes Past Medical History: - - CAD, T2DM Surgical History: - - CABG Smoking Status: Never smoker - Family History Maternal Family History: Family History (Last Reviewed 12/11/18 @ 08:44 by Michelle Hoyos) Father Myocardial infarction CAD (coronary artery disease) Brother Hypertension Family History: Reports: Heart Disease <Damian Fu - Last Filed: 01/07/19 13:33> - Family History Maternal Family History: Family History (Last Reviewed 12/11/18 @ 08:44 by Michelle Hoyos) Father Myocardial infarction CAD (coronary artery disease) Brother Hypertension <Char Downing - Last Filed: 01/07/19 15:12> - Allergies and Home Meds Allergies/Adverse Reactions: Allergies simvastatin Adverse Reaction (Severe, Verified 01/07/19 08:59) Myalgias,severe Primary Care Physician: Braxton Ken MD [STAFF PHYSICIAN] - Kami Costa DO [Primary Care Provider] - Review of Systems All systems negative except as indicated Genitourinary: Reports: Dysuria, Frequency, - - scrotal pain and swelling <Damian Fu - Last Filed: 01/07/19 13:33> Physical Exam Vital Signs/Narrative: Vital Signs Temp Pulse Resp BP Pulse Ox 01/07/19 08:59 97.0 F L 70 18 146/72 H 96 Inital Vital Signs reviewed: Yes General: Well nourished, Well developed, No Acute Distress Head: Normocephalic, Atraumatic Eyes: Perrl, EOMI ENT: Moist mucous membranes Neck: Supple, Nontender Cardiovascular: Regular rate, Regular rhythm Respiratory: No distress, CTA bilaterally, Chest nontender Abdomen: Soft, Nontender, Nondistended, Normal bowel sounds, No masses : - - Scrotum is swollen. There is no redness. Pain on palpation of the right testicle. There is no overlying crepitus or gangrenous tissue. There is no swelling or redness of the groin. No penile discharge. Back: Nontender Extremities: Nontender, No edema Skin: Normal color, No rash Neurological: Alert, Oriented x3 <Damian Fu - Last Filed: 01/07/19 13:33> Vital Signs/Narrative: Vital Signs Temp Pulse Resp BP Pulse Ox 01/07/19 13:55 98.4 F 67 16 135/75 H 97 01/07/19 12:57 65 18 117/76 96 <Char Downing - Last Filed: 01/07/19 15:12> Diagnostic/Tx/Re-eval - Medical Decision Making Patient declined analgesia. Urinalysis consistent with a urinary tract infection. Patient was given Rocephin for this. Basic laboratory work-up was unremarkable. Ultrasound of the scrotum showed hydrocele with normal testicles bilaterally and a left epididymal cyst. I spoke with urologist on-call Dr. Roland to arrange for close outpatient follow-up. We will place the patient on Cipro. First dose given in the ED. Urine culture was sent. Patient has not had any worsening of his swelling or pain of the scrotum and again on repeat evaluation no signs of Nicolasa's gangrene or abscess. He will be discharged home with close follow-up or he will return here to the emergency department for worsening symptoms which were discussed. <Damian Fu - Last Filed: 01/07/19 13:33> - Medical Decision Making Patient seen and evaluated with PA. Patient presents with dysuria and scrotal swelling. He had similar symptoms in the past that required urologic surgery for drainage. Patient is in no acute distress and nontoxic-appearing. Heart is regular rate and rhythm. Lung sounds clear. Abdomen is soft with mild suprapubic tenderness. Lab work, urinalysis, and ultrasound imaging is obtained. Patient is given antibiotics for his cystitis. Dr. Ken was contacted and will see the patient follow-up. <Char Downing - Last Filed: 01/07/19 15:12> ED Disposition <Damian Fu - Last Filed: 01/07/19 13:33> <Char Downing - Last Filed: 01/07/19 15:12> - Plan for ED Patient: Disposition: Home or Assisted Living Diagnosis: UTI (urinary tract infection), Hydrocele Instructions: HYDROCELE, Type Not Specified, Bladder Infection, Male (Adult) Prescriptions: Ciprofloxacin [Cipro] 500 mg PO BID #14 tab Prescription Printed Referrals: Kami Costa DO [Primary Care Provider] - Braxton Ken MD [STAFF PHYSICIAN] -
[2019-01-07 10:38] LABS: Anion Gap 4 (5-15); BUN 23 mg/dL (7-18); BUN/Creat Ratio 25.7 RATIO (10-20); Calcium,Total 9.4 mg/dL (8.5-10.1); Chloride 105 mmol/L (98-107); EST Glomerular Filtration Rate 89 mL/min (>60); Est Glom Filt Rate - Afr Amer 108 mL/min (>60); Estimated Creatinine Clearance 73.89 ml/min; Glucose 110 mg/dL (74-106); Potassium 4.8 mmol/L (3.5-5.1); Sodium Level 137 mmol/L (136-145)
[2019-01-07] MEDS: Ceftriaxone 1 GM/50 ML BAG IV (11:14)
--- NOTE | 2019-01-07 11:30 | US_ITS ---
STUDY: SCROTUM ULTRASOUND REASON FOR EXAM: Male, 68 years old. Swelling TECHNIQUE: Ultrasound evaluation of the scrotum was performed with color Doppler and static styles-scale imaging. COMPARISON: None. FINDINGS: RIGHT TESTICLE INTRATESTICULAR: There is a normal size of the right testicle. The right testicle measures 3.6 x 3.2 x 2.4 cm. There is a homogenous echotexture. There is normal arterial and normal venous vascularity. There is no demonstrated right testicular mass or cyst. EXTRATESTICULAR: The epididymis is normal in size. The epididymis head measures 1.4 cm. There is normal vascularity of the epididymis. There is no demonstrated epididymal cystic structure. There is a moderate size hydrocele. There is no demonstrated varicocele. There is no demonstrated extratesticular mass or cyst. LEFT TESTICLE INTRATESTICULAR: There is a normal size of the left testicle. The left testicle measures 4.0 x 3.4 x 2.8 cm. There is a homogenous echotexture. There is normal arterial and normal venous vascularity. There is no demonstrated left testicular mass or cyst. EXTRATESTICULAR: The epididymis is normal in size. The epididymis head measures 1.9 cm. There is normal vascularity of the epididymis. There is a well-defined cystic structure within the epididymis, without internal echoes, consistent with an epididymal cyst. There is a moderate size hydrocele. There is no demonstrated varicocele. There is no demonstrated extratesticular mass or cyst. US/Testicular with Arterial Flow IMPRESSION: Normal bilateral testicles. Bilateral hydroceles Left epididymal cyst Electronically Signed: Billy Cedeno MD at 11:29 EDT , Service support ,
[2019-01-07 12:57] VITALS: BP 117/76; PULSE 65; RESP 18; O2SAT 96
[2019-01-07] MEDS: Ciprofloxacin 500 MG Tablet PO (13:43)
[2019-01-07 13:55] VITALS: BP 135/75; PULSE 67; RESP 16; TEMP 36.9; O2SAT 97
--- NOTE | 2019-01-07 13:56 | ED.RN ---
REVIEWED D/C INSTRUCTIONS, FOLLOW UP CARE, PRESCRIPTION, AND S/S THAT WOULD WARRANT A RETURN TO THE ED WITH PT. PT VERBALIZED AN UNDERSTANDING AND DENIES FURTHER QUESTIONS FOR THIS RN. PT SKIN P/W/D, RESP EVEN AND UNLABORED, PT A&O X 3, NO DISTRESS NOTED. PT AMBULATED OUT OF ED, GAIT STEADY.
[2019-01-07 15:45] LABS: Absolute Lymphocyte Count 0.97 X10^3/uL (0.83-4.51); Absolute Neutrophil Count 10.2 X10^3/uL (2.0-7.7); Basophil# 0.01 X10^3/uL; Basophil% 0.1 % (0-1); Differential Indicated SCAN CRITERIA MET; Eosinophil# 0.19 X10^3/uL; Eosinophils% 1.5 % (0-5); Hematocrit 43.3 % (40-54); Hemoglobin 14.2 g/dL (13.0-16.5); Lymphocyte # 0.97 X10^3/ul (4.0); Lymphocyte % 7.7 % (19-41); Mean Corp Hgb Conc 32.8 g/dL (32-36); Mean Corpuscular Hgb 30.2 pg (27.0-32.0); Mean Corpuscular Volume 92.1 fL (80-94); Mean Platelet Vol. 10.4 fl (6.2-12.0); Monocyte# 1.13 X10^3/uL; NRBC Flagged by Analyzer 0 % (0-5); Neutrophil # 10.17 X10^3/uL (2.7-7.7); Neutrophil % 81.1 % (47-70); POSITIVE COUNT YES; Platelet Count 222 K/mm3 (150-450); RBC Distribution Width CV 13.5 % (11.6-14.6); RBC Distribution Width SD 46.2 fl (35.1-43.9); White Blood Count 12.6 K/mm3 (4.4-11.0)
[2019-01-07 15:48] LABS: Differential Comment SCANNED
== END 2019-01-07 13:58 | disposition home or self-care (01) ==
PROVIDERS: Emergency Provider Physician Assistant Medical; Family Provider Internal Medicine; PCP Internal Medicine
DX: N39.0 Urinary tract infection, site not specified (principal); N43.3 Hydrocele, unspecified; E11.9 Type 2 diabetes mellitus without complications; I25.10 Atherosclerotic heart disease of native coronary artery without angina pectoris; Z79.01 Long term (current) use of anticoagulants; Z79.84 Long term (current) use of oral hypoglycemic drugs; Z79.82 Long term (current) use of aspirin; Z79.899 Other long term (current) drug therapy; Z95.1 Presence of aortocoronary bypass graft
CPT/HCPCS: 76870; 80048; 81001; 85025; 87086; 87088; 87186; 93976; 99285; J7030; A4216

== ENCOUNTER 2019-01-09 10:23 | Inpatient (IN) | payer MEDICARE, OTHER, SELFPAY ==
[2019-01-09 10:24] VITALS: BP 116/66; PULSE 82; RESP 17; TEMP 36.2; O2SAT 96; BMI 29.7
--- NOTE | 2019-01-09 10:46 | VDLE_ITS ---
Reason For Study: swelling RIGHT LEFT CFV is compressible, spontaneous, phasic, GSV is normal. competent and demonstrates normal CFV is compressible, spontaneous, phasic, augmentation. competent, and demonstrates normal Procedure augmentation. Exam performed portable in ED. FV is compressible, spontaneous, phasic, The exam was diagnostic. competent and demonstrates normal A preliminary report was called and/or faxed augmentation. to Dr. Flores. POP V is compressible, spontaneous, phasic, competent and demonstrates normal augmentation. T/P Trunk is compressible. PTV is compressible. LT PerV is compressible. Interpretation Summary There is no evidence of left lower extremity deep vein thrombosis. Left great saphenous vein appears patent and compressible segmentally. Patent and compressible right common femoral vein Ordering Physician: Rodney Flores Performed By: Julio Smalls RVT
--- NOTE | 2019-01-09 10:47 | ED.DCSUM_ITS ---
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 Patient with a recent diagnosis of UTI and right-sided orchitis on Tuesday. He was placed on Cipro 3 times daily and is taken 5 so far. He was also seen in the emergency department on Tuesday and received IV antibiotics at that time. He states that he is only feeling worse now and he is developed swelling in his left knee and left foot that he had before with a similar infection like this. Physical Examination: Older male no acute distress. Vital signs are stable afebrile. at bedside. HEENT exam unremarkable. Neck nontender no lymphadenopathy. Lungs clear to auscultation bilaterally. Heart regular rhythm no murmur. Abdomen is soft and nontender. Normal bowel sounds. No peritoneal signs. Extremities moves all 4. Neurovascular intact. She has minimal swelling of his left knee it does not appear to be a septic joint. He is able to flex and extend his knee. He also has mild swelling of his left foot primarily the great toe. Calf is nontender. No cords. Left foot is neurovascular intact with DP pulse. His external region he has swelling of the scrotum or so on the right than obvious orchitis on the right and swollen tender right testicle. He is uncircumcised. Neurologically he is awake and alert with no focal motor deficits. Test Results: CBC normal white count of 9. Normal hemoglobin. No bands. El ectrolytes unremarkable normal creatinine and gap. I did look up his most recent UTI cultures from several days ago and it was positive for E. coli sensitive to the antibiotics. Ultrasound of his left leg showed no DVT. Emergency Department Course and Treatment: Patient has a worsening orchitis/UTI despite outpatient oral antibiotics. He will need to be admitted. We will do screening labs. He will be started on IV Rocephin in the ER and I will obtain an ultrasound of his left leg to rule out DVT. Treatment Plan: Repeat exam at 1154 is doing well. He denied his went over his test results. I have previously spoken to his urologist and he will admit him. 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 It may contain incorrect words, spelling, and punctuation that were not noted in review of the chart prior to signing ED Disposition - Plan for ED Patient:
--- NOTE | 2019-01-09 10:55 | NURSING ---
DR GUTIERREZ PAGED AND RETURNED CALL
--- NOTE | 2019-01-09 11:07 | NURSING ---
MED SURG BRENDA UTI, RT ORCHITIS FAILING OP THERAPY
[2019-01-09] MEDS: Acetaminophen 500 MG Tablet 1000 MG PO (11:16)
[2019-01-09 11:17] LABS: Absolute Lymphocyte Count 0.87 X10^3/uL (0.83-4.51); Absolute Neutrophil Count 7.8 X10^3/uL (2.0-7.7); Basophil# 0.02 X10^3/uL; Basophil% 0.2 % (0-1); Eosinophil# 0.14 X10^3/uL; Eosinophils% 1.5 % (0-5); Hematocrit 43.4 % (40-54); Hemoglobin 14.4 g/dL (13.0-16.5); Lymphocyte # 0.87 X10^3/ul (4.0); Lymphocyte % 9.2 % (19-41); Mean Corp Hgb Conc 33.2 g/dL (32-36); Mean Corpuscular Hgb 29.8 pg (27.0-32.0); Mean Corpuscular Volume 89.9 fL (80-94); Monocyte# 0.64 X10^3/uL; Monocyte% 6.7 % (0-10); NRBC Flagged by Analyzer 0 % (0-5); Neutrophil # 7.77 X10^3/uL (2.7-7.7); Neutrophil % 81.8 % (47-70); Platelet Count 261 K/mm3 (150-450); RBC Distribution Width CV 13.6 % (11.6-14.6); RBC Distribution Width SD 44.6 fl (35.1-43.9); Red Blood Count 4.83 M/mm3 (4.6-6.2); White Blood Count 9.5 K/mm3 (4.4-11.0)
[2019-01-09] MEDS: Ceftriaxone 1 GM/50 ML BAG IV (11:17)
--- NOTE | 2019-01-09 11:23 | CASEMGMT ---
RN CM Assessment Introduced role of RN CM to patient and patient Keli at bedside.? Patient is alert, oriented and able?to participate in RN CM Assessment. ?Care providers, pharmacy, and demographics verified. Presentation: Was seen in ER 01/07/19 and Dz with UTI and Rt side Orchitis, placed on Cipro. C/o feeling worse and Lt knee/foot swelling. H/o DVT and PE on Eliquis. Re-Admit: No Barriers/Issues: None PCP: Kami Costa Specialists: Uro- [place]ellen, Cardio- [place], Pulm for HEVER- Sibilia Preferred Pharmacy: [facility] Insurance: [employer], [facility] Rx Benefit:?Yes, [employer] LNOK: Keli Woods LW/HPOA: None on file Living Arrangements:?Lives with in a SS home, 1-2 steps to enter ADL?s: Independent with ambulation and ADLs Transportation: Patient drives, to transport upon DC, denies transportation issues. DME: CPAP HHC: None SNF: None Goal: Return home, does not think will have any needs. Denies any questions/concerns/issues with DC Planning at this time. Aware CM remains available for any emerging needs. DC PLAN: Home with no anticipated needs identified at this time. ECTOR Munson
[2019-01-09 11:37] LABS: Anion Gap 10 (5-15); BUN 22 mg/dL (7-18); BUN/Creat Ratio 20.8 RATIO (10-20); Calcium,Total 9.7 mg/dL (8.5-10.1); Chloride 103 mmol/L (98-107); Creatinine, Serum 1.06 mg/dL (0.70-1.30); EST Glomerular Filtration Rate 73 mL/min (>60); Est Glom Filt Rate - Afr Amer 89 mL/min (>60); Estimated Creatinine Clearance 62.74 ml/min; Glucose 138 mg/dL (74-106); Potassium 3.8 mmol/L (3.5-5.1); Sodium Level 139 mmol/L (136-145)
--- NOTE | 2019-01-09 11:55 | PCM.HP.BLA ---
History and Physical Date of Admission: 01/09/19 I have pain in my scrotum. HPI: LAUREN KELLY is a 68 year-old male established patient who is here pain in his scrotum. He has swelling in the right testicle which is worsening, Failed outpatient antibiotics.. He has had cipro to treat the scrotal pain. The treatment was not successful. He does not have pain or burning when he urinates. He does not have hesitancy or straining. He is having problems with emptying his bladder well. ALLERGIES: Simvastatin MEDICATIONS: Aspirin 81 mg tablet,chewable tablet Eliquis Fish Oil Gabapentin Glucosamine & Chondroitin Magnesium Metformin Hcl Metoprolol Succinate Multivitamin Proair Hfa Rosuvastatin Calcium Singulair Symbicort Tramadol Hcl Valsartan Vitamin B-6 Vitamin C Vitamin D3 PSH: Cystoscopy - 2015 I & D Scrotal Abscess - 2015 Scrotal Exploration - 2015 NON- PSH: Colonoscopy - about 2013 Coronary Artery Bypass Grafting Patient documented to have received pneumococcal vaccination Rotator Cuff Surgery PMH: Benign prostatic hyperplasia with lower urinary tract symptoms - 03/14/2017, - 02/03/2017, - 2015, - 2015, - 2015 Testicular hypofunction - 03/14/2017 Acute cystitis without hematuria - 2015 Orchitis - 2015, - 2015 Frequency of micturition Nocturia NON- PMH: Essential (primary) hypertension Hyperlipidemia, unspecified Mild intermittent asthma, uncomplicated Other asthma Other sleep apnea 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 Smoking cessation counseling was provided. Does not use smokeless tobacco. Light Drinker. Does not use drugs. Drinks 2 caffeinated drinks per day. Has not had a blood transfusion. REVIEW OF SYSTEMS: Constitutional: Patient denies chills, fever, weight gain, and weight loss. Eyes: Patient denies blurry vision, cataracts, and glaucoma. Ears, Nose, Mouth, Throat: Patient reports sleep apnea. Patient denies hearing loss and sinus infections. Cardiovascular: Patient reports irregular heartbeat. Patient denies chest pains, swollen ankles, and pacemaker/defib. Respiratory: Patient reports wheezing and cpap machine. Patient denies shortness of breath and oxygen. Gastrointestinal: Patient reports constipation. Patient denies abdominal pain, diarrhea, nausea, and vomiting. Genitourinary: Patient reports frequent urination, urinary retention, get up at night to void, leakage of urine, painful urination, and difficulty starting stream. Patient denies blood in the urine, frequent uti's, history of stones, weak stream/scanty, and bedwetting. Musculoskeletal: Patient reports sore muscles and back pain. Patient denies gout. Integumentary/Skin: Patient denies rash, skin cancer, and chronic itching. Neurological: Patient denies falling/unsteady, paralysis, and stroke/tia. Hematologic/Lymphatic: Patient denies abnormal bleeding, blood transfusion, swollen lymph nodes, deep venous thrombosis, and pulmonary embolism. Notes: R sided testicular pain and swelling, patient in pain in office 12/06, patient in ER yesterday. patient has taken 2 325mg Tylenol around noon for pain. VITAL SIGNS: 01/08/2019 01:31 PM Weight 197 lb / 89.36 kg Height 68 in / 172.72 cm BP 122/70 mmHg BMI 30.0 kg/m? PHYSICAL EXAMINATION: Scrotum: No lesions. No edema. No cysts. No warts. Epididymides: Right: no spermatocele, no masses, no cysts, no tenderness, no induration, no enlargement. Left: no spermatocele, no masses, no cysts, no tenderness, no induration, no enlargement. Testes: Tender right testis, swollen, enlarged. No tenderness, no swelling, no enlargement left testis. Normal location left testis. Normal location right testis. No mass, no cyst, no varicocele, no hydrocele left testis. No mass, no cyst, no varicocele, no hydrocele right testis. Urethral Meatus: Normal size. No lesion, no wart, no discharge, no polyp. Normal location. MULTI-SYSTEM PHYSICAL EXAMINATION: Constitutional: Well-nourished. No physical deformities. Normally developed. Good grooming. Neck: Neck symmetrical, not swollen. Normal tracheal position. Respiratory: No labored breathing, no use of accessory muscles. Cardiovascular: Normal temperature, normal extremity pulses, no swelling, no varicosities. Lymphatic: No enlargement of neck, axillae, groin. Skin: No paleness, no jaundice, no cyanosis. No lesion, no ulcer, no rash. Neurologic / Psychiatric: Oriented to time, oriented to place, oriented to person. No depression, no anxiety, no agitation. Gastrointestinal: No mass, no tenderness, no rigidity, non obese abdomen. Eyes: Normal conjunctivae. Normal eyelids. Ears, Nose, Mouth, and Throat: Left ear no scars, no lesions, no masses. Right ear no scars, no lesions, no masses. Nose no scars, no lesions, no masses. Normal hearing. Normal lips. Musculoskeletal: Normal gait and station of head and neck. PAST DATA REVIEWED: Source Of History: Patient Urine Test Review: Urinalysis 02/03/17 PSA Total PSA 1.26 ng/mL ASSESSMENT: ICD-10 Details 1 : Epididymo-orchitis - N45.3 2 Benign prostatic hyperplasia with lower urinary tract symptoms - N40.1 PLAN: Document Letter(s): Created for Patient: Clinical Summary admit to hospital or IV antibiotics Failed outpatient manegment, Worsening infection.
[2019-01-09 13:34] VITALS: BP 130/59; PULSE 75; RESP 16; TEMP 37.1; O2SAT 95; BMI 29.9
[2019-01-09] MEDS: 0.9% Normal Saline 1,000 ML 75 ML IV (13:53)
[2019-01-09] MEDS: oxyCODONE 5 MG Tablet PO ×2 (13:57→23:10)
[2019-01-09 14:00] VITALS: PULSE 70
--- NOTE | 2019-01-09 14:01 | CON.PCM_ITS ---
Problem List (1) Cellulitis of scrotum Status: Acute (2) Paroxysmal atrial fibrillation Status: Chronic (3) Pure hypercholesterolemia Status: Chronic (4) Essential hypertension Status: Chronic (5) Atherosclerotic heart disease of [place] coronary artery without angina pectoris Status: Chronic Qualifiers: [place] vs. transplanted heart: [place] heart Qualified Code(s): I25.10 - Atherosclerotic heart disease of [place] coronary artery without angina pectoris (6) H/O coronary artery bypass surgery Status: Chronic Comment: CABG 12/17/03, Left internal thoracic artery bypass to first diagonal of LAD, SVG to LAD & posterior descending of RCA, SVG to ramus intermedius of CX & then to 3rd marginal branch of cx; (7) DM2 (diabetes mellitus, type 2) Status: Chronic Qualifiers: Diabetes mellitus termite control technician insulin use: without mcc use Diabetes mellitus complication status: with other specified complication Qualified Code (s): E11.69 - Type 2 diabetes mellitus with other specified complication Reason for Consult Date of Consultation: 01/09/19 Reason for Consultation: R scrotal, testicular pain, redness, edema, streaking LLE. History of Present Illness: The patient is a 68 y/o M w/ PMHx: Diabetes mellitus type 2 with neuropathy, hypertension, hyperlipidemia, asthma, history of DVT/PE, ? PAF, CAD status post CABG x5, obesity who presents to the [facility] per recommendation of his urologist Dr. Ken on 01/09/19 with history of initial right testicular discomfort and dysuria starting approximately of the week past progressively worsening with sensation of worsening scrotal edema as well as then onset of erythema over the past 72 hours with streaking down the left lower extremity as well as edema to the left lower extremity which he notes is similar to a prior scrotal infection approximately 3 years past. He denies any fevers or chills, nausea or emesis associated. Patient did have outpatient testicular ultrasound on 01/07/19 which demonstrated normal bilateral testicles, bilateral hydroceles, left epididymal cyst. Patient had been treated outpatient with oral ciprofloxacin per urology without market improvement prompting transition to inpatient evaluation and treatment. Past Medical History Past Medical History (Chronic Problems): Chronic Problems (Last Reviewed 12/11/18 @ 08:44 by Michelle Hoyos) Premature ventricular contractions (Chronic) Paroxysmal atrial fibrillation (Chronic) Pure hypercholesterolemia (Chronic) Essential hypertension (Chronic) Atherosclerotic heart disease of [place] coronary artery without angina pectoris (Chronic) H/O coronary artery bypass surgery (Chronic ~12/17/03) CABG 12/17/03, Left internal thoracic artery bypass to first diagonal of LAD, SVG to LAD & posterior descending of RCA, SVG to ramus intermedius of CX & then to 3rd marginal branch of cx; intermediate use of drug (Chronic) DM2 (diabetes mellitus, type 2) (Chronic) Asthma (Chronic) Medical History: Medical History (Last Reviewed 12/11/18 @ 08:44 by Michelle Hoyos) Premature ventricular contractions (Chronic) I49.3 Paroxysmal atrial fibrillation (Chronic) I48.0 Pure hypercholesterolemia (Chronic) E78.00 Essential hypertension (Chronic) I10 Atherosclerotic heart disease of [place] coronary artery without angina pectoris (Chronic) 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) Z79.899 DM2 (diabetes mellitus, type 2) (Chronic) E11.9 Asthma (Chronic) J45.909 DVT (deep venous thrombosis) (Resolved) I82.409 Pulmonary embolism (Resolved) I26.99 Diabetes mellitus type II, controlled E11.9 Allergies simvastatin Adverse Reaction (Severe, Verified 01/09/19 10:24) Myalgias,severe Home Medications: Ambulatory Orders Medication Instructions Recorded Aspirin [Aspirin, Baby] 81 mg PO DAILY@0800 09/07/15 Montelukast [Singulair] 10 mg PO DAILY 09/07/15 Multivitamin [Daily Multiple 1 ea PO DAILY 09/07/15 Vitamin] Pyridoxine HCl [Vitamin B-6] 100 mg PO DAILY 09/07/15 Cholecalciferol (Vitamin D3) 6,000 unit PO DAILY 08/12/16 [Vitamin D3] Glucosamine/Chondroitin A/MSM 2 ea PO DAILY 08/12/16 [Pyrcfpfmzus-Djzpiyldqqq-ERP Tb] coenzyme Q10 300 mg capsule 300 mg PO BID 07/19/17 magnesium 400 mg (as magnesium 400 mg PO QDAY cap 07/19/17 oxide) capsule ascorbic acid (vitamin C) 500 mg 500 mg PO DAILY 10/24/17 capsule apixaban 2.5 mg tablet 2.5 mg PO BID 12/11/18 budesonide-formoterol HFA 160 2 puff INHALATION Q12H 12/11/18 mcg-4.5 mcg/actuation aerosol inhaler gabapentin 100 mg capsule 100 mg PO TID 12/11/18 metformin 500 mg tablet 500 mg PO BID tab 12/11/18 rosuvastatin 20 mg tablet 20 mg PO DAILY 12/11/18 tramadol 50 mg tablet 50 mg PO DAILY PRN tab 12/11/18 valsartan 160 1 tab PO DAILY 12/11/18 mg-hydrochlorothiazide 12.5 mg tablet Ciprofloxacin [Cipro] 500 mg PO BID #14 tab 01/07/19 Metoprolol Tartrate [Lopressor 25 mg PO BID 01/09/19 (beta betty)] Surgical History: Surgical History (Last Reviewed 12/11/18 @ 08:44 by Michelle Hoyos) H/O coronary artery bypass surgery (Chronic) Onset Date: ~12/17/03 Z95.1 CABG 12/17/03, Left internal thoracic artery bypass to first diagonal of LAD, SVG to LAD & posterior descending of RCA, SVG to ramus intermedius of CX & then to 3rd marginal branch of cx; S/P coronary artery bypass graft x 2 Z95.1 12/17/03, left internal thoracic artery bypass to first diagonal of LAD, SVG to LAD & posterior descending of RCA, SVG to ramus intermedius of CX & 3rd marginal branch of CX Surgical History: - - CABG x 5, right rotator cuff repair, tonsillectomy, umbilical hernia repair, trigger finger intervention, history of prior scrotal versus testicular abscess status post drainage approximately 3 years prior to current presentation. Psychiatric History: No pertinent psych hx Lives: Spouse/ Significant Other Smoking Status: Never smoker Tobacco Use: Non-smoker Alcohol: Occasional Drugs: None - *Family History Maternal Family History: Family History (Last Reviewed 12/11/18 @ 08:44 by Michelle Hoyos) Father Myocardial infarction CAD (coronary artery disease) Brother Hypertension History Items: Heart Disease Paternal Family History: Family History (Last Reviewed 12/11/18 @ 08:44 by Michelle Hoyos) Father Myocardial infarction CAD (coronary artery disease) Brother Hypertension History Items: Heart Disease Review of Systems Constitutional: Reports: Malaise, Weakness, Fatigue. Denies: Chills, Fever, Weight Change HEENT: Denies: Head Aches, Sinus Congestion, Sinus Drainage Cardiovascular: Denies: Chest Pain, Palpitations Respiratory: Denies: Cough, Shortness of breath at rest, Sputum production Gastrointestinal: Denies: Abdominal Pain, Nausea, Vomiting Genitourinary: Reports: Dysuria, - - Testicular pain, scrotal swelling Musculoskeletal: Denies: Joint Pain, Joint Tenderness Skin: Reports: Skin Changes. Denies: Rash, Wounds Neurological: Denies: Numbness, Tingling, Focal weakness Psychiatric: Denies: Anxiety, Depression, Homicidal Ideations, Suicidal Ideations Endocrine: Denies: Heat/ Cold Intolerance Hematologic/ Lymphatic: Reports: Easy Bruising, Easy Bleeding Patient Problems: Active and Suspected Problems (Last Reviewed 12/11/18 @ 08:44 by Michelle Hoyos) Cellulitis of scrotum (Acute) Subjective: Seated upright in the bed, fatigued and uncomfortable appearing. Objective: Physical Examination: General: awake, alert, oriented x 3 and cooperative, seated upright in bed in no apparent distress. Skin: normal color, turgor, no icterus, cyanosis except testicular erythema with mild edema, tenderness to palpation with streaking down the left lower extremity and edema associated, not markedly pitting. HEENT: AT/NC, EOMI, PERRLA, MMM, no carotid bruits or JVD noted. Lungs: CTA bilaterally, moderate effort, mild decrease BL bases, no rales, ronchi or wheezing. Heart: Regular rate and rhythm; no gallop, rub audible. Abdomen: soft, obese, NTTP, ND, normal BS, no HSM. Extremities: no cyanosis, clubbing, see skin with as noted left lower extremity streaking and mild edema. Neurological: patient awake, alert, oriented x 3; cognitive function intact; pupils equally reactive to light and accomodation; cranial nerves II-XII grossly normal, moving all 4 extremities, no focal deficits, strength moderately to severely global decrease secondary to acute presentation. Psychiatric: affect appears fatigued, no acute evidence of depressive or anxiety feelings. - Physical Exam Vital Signs Temp Pulse Resp BP Pulse Ox 98.7 F 75 16 130/59 H 95 01/09/19 13:34 01/09/19 13:34 01/09/19 13:34 01/09/19 13:34 01/09/19 13:34 Oxygen Delivery Method Room Air Weight: 197 lb Body Mass Index (BMI) 29.9 Finger Stick Blood Glucose 119 Laboratory Tests Past 24 Hrs 01/09/19 01/09/19 11:10 11:10 WBC 9.5 RBC 4.83 Hgb 14.4 Hct 43.4 MCV 89.9 MCH 29.8 MCHC 33.2 RDW Std Deviation 44.6 H RDW Coeff of Enma 13.6 Plt Count 261 MPV 10.0 Immature Gran % (Auto) 0.600 Neut % (Auto) 81.8 H Lymph % (Auto) 9.2 L Dale % (Auto) 6.7 Eos % (Auto) 1.5 Baso % (Auto) 0.2 Absolute Neuts (auto) 7.8 H Absolute Lymphs (auto) 0.87 Nucleated RBC % 0 Sodium 139 Potassium 3.8 Chloride 103 Carbon Dioxide 26.0 Anion Gap 10 BUN 22 H Creatinine 1.06 Estim Creat Clear Calc 62.74 Est GFR (MDRD) Af Amer 89 Est GFR (MDRD) Non-Af 73 BUN/Creatinine Ratio 20.8 H Glucose 138 H Calcium 9.7 Assessment/Plan All Active Problems (Last Reviewed 12/11/18 @ 08:44 by Michelle Hoyos) Cellulitis of scrotum (Acute) DVT (deep venous thrombosis) (Resolved) Pulmonary embolism (Resolved) Acute bronchitis (Resolved) The patient is a 68 y/o M w/ PMHx: Diabetes mellitus type 2 with neuropathy, hypertension, hyperlipidemia, asthma, history of DVT/PE, ? PAF, CAD status post CABG x5, obesity who presents to the [facility] per recommendation of his urologist Dr. Ken on 01/09/19 with history of right testicular discomfort, dysuria scrotal erythema starting 7 days prior, failed outpatient cipro. 1. Scrotal cellulitis with left lower extremity streaking: Admitted to medical surgical floor per admitting service, urology, maintain on IV Rocephin per urology discretion, recent testicular ultrasound unremarkable as noted, plan repeat CBC in AM, continue testicular elevation and left lower extremity elevation as able, monitor erythema outline with VS checks. From discussion with urology currently no intention for operative intervention of thus we will continue Eliquis but if operative intervention does become necessary would plan to hold Eliquis and transition to heparin drip. 2. CAD: s/p CABG x5, follows w/ Dr. Dr. Daniels. Will continue home regimen asa, Eliquis as noted with concurrent DVT, PE, questionable PAF hx, ARB, statin, BB. 3. History DVT, PE: Maintained on Eliquis, discussed with urology and currently no intention for operative intervention, will continue with however if need would hold and transition to therapeutic heparin drip. 4. ? PAF: Noted in chart however patient unaware of this history, maintained as noted on Eliquis as noted transition to heparin drip if operative intervention necessary, continue metoprolol. 5. Diabetes mellitus type II with neuropathy: Hold oral home regimen, ADA diet, accu checks w/ ISS, continue Neurontin. 6. Chronic asthma: We will continue twice daily budesonide, PRN albuterol, Singulair, HOB, IS parameters. 7. Hypertension: Continue home regimen including hydrochlorothiazide, losartan, metoprolol, PRN hydralazine. 8. Hyperlipidemia: Continue home statin regimen. 9. Obesity: Weight loss and lifestyle changes encouraged. 10. DVT prophylaxis: SCDs, continued on Eliquis as noted with potential hold as needed. Code Visit Office Visits / Consults: [id number] IP Consult L5
[2019-01-09 17:15] LABS: Bedside Glucose 147 mg/dL (70-110)
[2019-01-09] MEDS: Gabapentin 100 MG Capsule PO (18:45)
[2019-01-09] MEDS: Albuterol 2.5 MG/3 ML VIAL.NEB. INHALATION (19:00)
[2019-01-09] MEDS: Budesonide Respules 0.5 MG/2 ML AMPUL.NEB. INHALATION (19:00)
[2019-01-09 19:01] VITALS: PULSE 70; RESP 18
[2019-01-09 20:00] VITALS: BP 119/66; PULSE 69; RESP 16; TEMP 36.8; O2SAT 93
[2019-01-09 21:34] VITALS: BP 119/66; PULSE 69
[2019-01-09] MEDS: Tamsulosin HCl 0.4 MG Capsule PO (21:34)
[2019-01-09] MEDS: Atorvastatin Calcium 40 MG Tablet PO (21:34)
[2019-01-09] MEDS: Montelukast 10 MG Tablet PO (21:34)
[2019-01-09] MEDS: Metoprolol Tartrate 25 MG Tablet PO (21:34)
[2019-01-09] MEDS: APIXABAN 2.5 MG TABLET PO (21:34)
[2019-01-09 21:46] LABS: Bedside Glucose 116 mg/dL (70-110)
[2019-01-10] VITALS (10 sets, daily range): BP systolic 105–136; BP diastolic 46–76; PULSE 66–97; RESP 16–22; TEMP 36.8–37.1; O2SAT 94–97
[2019-01-10] MEDS: 0.9% Normal Saline 1,000 ML 75 ML IV ×2 (02:13→15:10)
[2019-01-10 05:40] LABS: Absolute Lymphocyte Count 1.57 X10^3/uL (0.83-4.51); Absolute Neutrophil Count 5.3 X10^3/uL (2.0-7.7); Basophil# 0.02 X10^3/uL; Basophil% 0.3 % (0-1); Eosinophil# 0.31 X10^3/uL; Eosinophils% 3.9 % (0-5); Hematocrit 37.9 % (40-54); Hemoglobin 12.4 g/dL (13.0-16.5); Lymphocyte # 1.57 X10^3/ul (4.0); Lymphocyte % 19.6 % (19-41); Mean Corp Hgb Conc 32.7 g/dL (32-36); Mean Corpuscular Hgb 29.5 pg (27.0-32.0); Mean Corpuscular Volume 90.2 fL (80-94); Monocyte# 0.72 X10^3/uL; NRBC Flagged by Analyzer 0 % (0-5); Neutrophil # 5.31 X10^3/uL (2.7-7.7); Neutrophil % 66.3 % (47-70); Platelet Count 248 K/mm3 (150-450); RBC Distribution Width CV 13.3 % (11.6-14.6); RBC Distribution Width SD 44.1 fl (35.1-43.9)
[2019-01-10 06:04] LABS: Anion Gap 9 (5-15); BUN 19 mg/dL (7-18); BUN/Creat Ratio 25.3 RATIO (10-20); Calcium,Total 8.5 mg/dL (8.5-10.1); Chloride 106 mmol/L (98-107); Creatinine, Serum 0.75 mg/dL (0.70-1.30); EST Glomerular Filtration Rate 109 mL/min (>60); Est Glom Filt Rate - Afr Amer 132 mL/min (>60); Glucose 105 mg/dL (74-106); Sodium Level 139 mmol/L (136-145)
[2019-01-10] MEDS: oxyCODONE 5 MG Tablet PO ×3 (06:43→22:34)
[2019-01-10] MEDS: Ondansetron 4 MG/2 ML Vial IV (06:46)
[2019-01-10 06:56] LABS: Bedside Glucose 99 mg/dL (70-110)
[2019-01-10] MEDS: Albuterol 2.5 MG/3 ML VIAL.NEB. INHALATION ×2 (06:59→19:39)
[2019-01-10] MEDS: Budesonide Respules 0.5 MG/2 ML AMPUL.NEB. INHALATION ×2 (06:59→19:39)
--- NOTE | 2019-01-10 07:31 | PN_ITS ---
Patient Problems: Active and Suspected Problems (Last Reviewed 12/11/18 @ 08:44 by Michelle Hoyos) Cellulitis of scrotum (Acute) Subjective: Patient comes into the hospital for right epididymoorchitis on exam the right testicle extremely tender but no focal areas of abscess nothing surgical that needs to be done we will continue with antibiotics his main complaint today is actually more of nausea from the antibiotics and also very tender left knee and left ankle extremely tender with an ultrasound rule out DVT this is normal and a consult orthopedics for possible septic arthritis. - Physical Exam General: Alert, Oriented x3, Cooperative HEENT: Atraumatic, PERRLA, EOMI, Normocephalic Neck: Supple, No JVD, Negative Carotid Bruits Lungs: Clear to auscultation, Normal air movement Cardiovascular: Regular rate, No murmurs Abdomen: Bowel Sounds Present, Soft, Non Tender Extremities: No edema, Capillary Refill Less than 3 Seconds Skin: No rashes, No breakdown Musculoskeletal: No Tenderness to Palpation of Joints or Extremities Neurological: Cranial nerves II-XII grossly intact Psych/Mental Status: Normal Affect, Appropriate Vital Signs Temp Pulse Resp BP Pulse Ox 98.2 F 66 16 105/46 L 95 01/10/19 02:05 01/10/19 02:05 01/10/19 02:05 01/10/19 02:05 01/10/19 02:05 Oxygen Delivery Method Room Air Weight: 89.358 kg Body Mass Index (BMI) 29.9 Finger Stick Blood Glucose 119 Intake and Output for Last 24 Hours 01/08/19 01/09/19 01/10/19 23:59 23:59 23:59 Intake Total 891 / 1541 1200 / 1200 Output Total 1200 / 1200 Balance 891 / 741 0 / 0 Laboratory Tests Past 24 Hrs 01/09/19 01/09/19 01/10/19 11:10 11:10 05:16 WBC 9.5 8.0 RBC 4.83 4.20 L Hgb 14.4 12.4 L Hct 43.4 37.9 L MCV 89.9 90.2 MCH 29.8 29.5 MCHC 33.2 32.7 RDW Std Deviation 44.6 H 44.1 H RDW Coeff of Enma 13.6 13.3 Plt Count 261 248 MPV 10.0 10.0 Immature Gran % (Auto) 0.600 0.900 Neut % (Auto) 81.8 H 66.3 Lymph % (Auto) 9.2 L 19.6 [place] % (Auto) 6.7 9.0 Eos % (Auto) 1.5 3.9 Baso % (Auto) 0.2 0.3 Absolute Neuts (auto) 7.8 H 5.3 Absolute Lymphs (auto) 0.87 1.57 Nucleated RBC % 0 0 Sodium 139 Potassium 3.8 Chloride 103 Carbon Dioxide 26.0 Anion Gap 10 BUN 22 H Creatinine 1.06 Estim Creat Clear Calc 62.74 Est GFR (MDRD) Af Amer 89 Est GFR (MDRD) Non-Af 73 BUN/Creatinine Ratio 20.8 H Glucose 138 H Calcium 9.7 01/10/19 05:16 WBC RBC Hgb Hct MCV MCH MCHC RDW Std Deviation RDW Coeff of Enma Plt Count MPV Immature Gran % (Auto) Neut % (Auto) Lymph % (Auto) [place] % (Auto) Eos % (Auto) Baso % (Auto) Absolute Neuts (auto) Absolute Lymphs (auto) Nucleated RBC % Sodium 139 Potassium 4.0 Chloride 106 Carbon Dioxide 24.0 Anion Gap 9 BUN 19 H Creatinine 0.75 Estim Creat Clear Calc 66.50 Est GFR (MDRD) Af Amer 132 Est GFR (MDRD) Non-Af 109 BUN/Creatinine Ratio 25.3 H Glucose 105 Calcium 8.5 POC Glucose 01/10/19 01/09/19 01/09/19 06:40 21:36 17:07 POC Glucose 99 116 H 147 H Medical Necessity - Tobacco Use Smoking Status: Never smoker Tobacco Use: Non-smoker Assessment/Plan All Active Problems (Last Reviewed 12/11/18 @ 08:44 by Michelle Hoyos) Cellulitis of scrotum (Acute) DVT (deep venous thrombosis) (Resolved) Pulmonary embolism (Resolved) Acute bronchitis (Resolved) Admitted to the hospital for epididymoorchitis bacteremia possible septic arthritis we will consult orthopedic surgery for an evaluation called orthopedic and left voice message on their cell phone and will have the floor also call in for consult.
[2019-01-10] MEDS: Aspirin 81 MG TAB.CHEW PO (08:02)
[2019-01-10] MEDS: Gabapentin 100 MG Capsule PO ×3 (08:02→18:34)
[2019-01-10] MEDS: Pyridoxine HCl 100 MG Tablet PO (08:02)
[2019-01-10] MEDS: Multivitamins,Therapeutic Tablet 1 TABLET PO (08:02)
--- NOTE | 2019-01-10 08:34 | PN_ITS ---
Patient Problems: Active and Suspected Problems (Last Reviewed 12/11/18 @ 08:44 by Michelle Hoyos) Cellulitis of scrotum (Acute) Subjective: With pain in his scrotum, right greater than left. Also complains of swelling in the left knee as well as the left great toe. Patient states that he had similar situation when he had had a epididymitis but was diagnosed with bursitis. Did have a aspiration of his knee at that time that showed negative culture. Patient denies ever having had anything similar to this other than that time and today. Vitals/I&O's: Vital Signs Temp Pulse Resp BP Pulse Ox 36.8 C 74 18 119/64 94 01/10/19 07:53 01/10/19 07:53 01/10/19 07:53 01/10/19 07:53 01/10/19 07:53 Oxygen Delivery Method Room Air Weight: 89.358 kg Body Mass Index (BMI) 29.9 Finger Stick Blood Glucose 119 Intake and Output for Last 24 Hours 01/08/19 01/09/19 01/10/19 23:59 23:59 23:59 Intake Total 891 / 1541 1200 / 1200 Output Total 1200 / 1200 Balance 891 / 741 0 / 0 General: Alert, No apparent distress HEENT: Atraumatic, Normocephalic Oral: Moist Mucosa, No Gingival or Mucosal Lesions/ Ulcerations Neck: No Nodes, Thyroid Normal Size and Texture Lungs: Clear to auscultation, Normal air movement, No rhonchi, No wheeze, No rales Cardiovascular: Regular rate, Regular Rhythm, Normal S1, Normal S2, No murmurs Abdomen: Bowel Sounds Present, Soft, Non Tender, Non-Distended, No Hepato- splenomegaly, - - Right scrotal fullness. Faint erythema involving the scrotum. Extremities: - - No knee effusions bilaterally. Does have a swelling anteriorly over the right knee along the patellar tendon. Does have swelling involving the left great toe with tenderness not at the MTP but at the PIP. Skin: - - Faint erythema involving the scrotum circumferentially as well as the left great toe as well as the medial distal foot. Musculoskeletal: No Tenderness to Palpation of Joints or Extremities, No Muscle Wasting Neurological: Sensory exam intact to light touch and pain, Coordination normal Psych/Mental Status: Normal Affect, Appropriate Laboratory Results 01/09/19 11:10: WBC 9.5, RBC 4.83, Hgb 14.4, Hct 43.4, MCV 89.9, MCH 29.8, MCHC 33.2, RDW Std Deviation 44.6 H, RDW Coeff of Enma 13.6, Plt Count 261, MPV 10.0, Immature Gran % (Auto) 0.600, Neut % (Auto) 81.8 H, Lymph % (Auto) 9.2 L, [place] % (Auto) 6.7, Eos % (Auto) 1.5, Baso % (Auto) 0.2, Absolute Neuts (auto) 7.8 H, Absolute Lymphs (auto) 0.87, Nucleated RBC % 0 01/09/19 11:10: Sodium 139, Potassium 3.8, Chloride 103, Carbon Dioxide 26.0, Anion Gap 10, BUN 22 H, Creatinine 1.06, Estim Creat Clear Calc 62.74, Est GFR (MDRD) Af Amer 89, Est GFR (MDRD) Non-Af 73, BUN/Creatinine Ratio 20.8 H, Glucose 138 H, Calcium 9.7 01/09/19 17:07: POC Glucose 147 H 01/09/19 21:36: POC Glucose 116 H 01/10/19 05:16: WBC 8.0, RBC 4.20 L, Hgb 12.4 L, Hct 37.9 L, MCV 90.2, MCH 29.5, MCHC 32.7, RDW Std Deviation 44.1 H, RDW Coeff of Enma 13.3, Plt Count 248, MPV 10.0, Immature Gran % (Auto) 0.900, Neut % (Auto) 66.3, Lymph % (Auto) 19.6, [place] % (Auto) 9.0, Eos % (Auto) 3.9, Baso % (Auto) 0.3, Absolute Neuts (auto) 5.3, Absolute Lymphs (auto) 1.57, Nucleated RBC % 0 01/10/19 05:16: Sodium 139, Potassium 4.0, Chloride 106, Carbon Dioxide 24.0, Anion Gap 9, BUN 19 H, Creatinine 0.75, Estim Creat Clear Calc 66.50, Est GFR (MDRD) Af Amer 132, Est GFR (MDRD) Non-Af 109, BUN/Creatinine Ratio 25.3 H, Glucose 105, Calcium 8.5 01/10/19 06:40: POC Glucose 99 Current Medications Acetaminophen (Tylenol) 650 mg PO Q6H PRN PRN PRN Reason: Mild Pain (1-3)/Temp > 100.7 F Albuterol Sulfate (Ventolin Aerosols) 2.5 mg INHALATION Q2H PRN PRN PRN Reason: dyspnea, wheezing Albuterol Sulfate (Ventolin Aerosols) 2.5 mg INHALATION Q6HWA.RT [facility] Last Admin: 01/10/19 06:59 Dose: 2.5 mg Documented by: Apixaban (Eliquis) 2.5 mg PO BID [facility] Last Admin: 01/09/19 21:34 Dose: 2.5 mg Documented by: Aspirin (Aspirin, Baby) 81 mg PO DAILY@0800 [facility] Last Admin: 01/10/19 08:02 Dose: 81 mg Documented by: Atorvastatin Calcium (Lipitor) 40 mg PO QHS [facility] Last Admin: 01/09/19 21:34 Dose: 40 mg Documented by: Budesonide (Pulmicort Aerosol) 0.5 mg INHALATION Q12H.RT [facility] Last Admin: 01/10/19 06:59 Dose: 0.5 mg Documented by: Dextrose (D50w Syringe) 0 gm IV X1 PRN; Protocol PRN Reason: Hypoglycemia Docusate Sodium (Colace) 100 mg PO BID PRN PRN PRN Reason: Constipation Gabapentin (Neurontin) 100 mg PO TIDCM [facility] Last Admin: 01/10/19 08:02 Dose: 100 mg Documented by: Glucagon () 1 mg IM .X1 PRN PRN Reason: Hypoglycemia Guaifenesin (Robitussin) 20 ml PO Q4H PRN PRN PRN Reason: COUGH Hydralazine HCl (Apresoline Iv) 10 mg IV Q4H PRN PRN PRN Reason: SBP > 160 Hydrochlorothiazide () 12.5 mg PO DAILY [facility] Sodium Chloride () 1,000 mls @ 75 mls/hr IV .[id number] [facility] Last Admin: 01/10/19 02:13 Dose: 75 mls/hr Documented by: Ceftriaxone Sodium (Rocephin) 1 gm in 50 mls @ 100 mls/hr IV Q24H [facility] Insulin Human Lispro (Humalog Kwikpen (Bkc)) 0 unit SC ACHS [facility]; Protocol Last Admin: 01/10/19 06:41 Dose: Not Given Documented by: Losartan Potassium (Cozaar) 50 mg PO DAILY [facility] Metoprolol Tartrate (Lopressor (Beta Yaya)) 25 mg PO BID [facility] Last Admin: 01/09/19 21:34 Dose: 25 mg Documented by: Montelukast Sodium (Singulair) 10 mg PO DAILY@2200 [facility] Last Admin: 01/09/19 21:34 Dose: 10 mg Documented by: Morphine Sulfate () 2 mg IV Q3H PRN PRN PRN Reason: Severe pain (7-10/10) Multivitamins (Multivitamin) 1 tablet PO DAILY@0800 [facility] Last Admin: 01/10/19 08:02 Dose: 1 tablet Documented by: Ondansetron HCl (Zofran) 4 mg IV Q8H PRN PRN PRN Reason: NAUSEA/VOMITING Last Admin: 01/10/19 06:46 Dose: 4 mg Documented by: Oxycodone HCl (Oxyir) 5 mg PO Q4H PRN PRN PRN Reason: Moderate Pain (4-6/10) Last Admin: 01/10/19 06:43 Dose: 5 mg Documented by: [facility] Admin: 01/10/19 08:02 Dose: 100 mg Documented by: Tamsulosin HCl (Flomax) 0.4 mg PO QHS [facility] Last Admin: 01/09/19 21:34 Dose: 0.4 mg Documented by: Temazepam (Restoril) 15 mg PO QHS PRN PRN PRN Reason: INSOMNIA Medical Necessity - Tobacco Use Smoking Status: Never smoker Tobacco Use: Non-smoker Assessment/Plan All Active Problems (Last Reviewed 12/11/18 @ 08:44 by Michelle Hoyos) Cellulitis of scrotum (Acute) DVT (deep venous thrombosis) (Resolved) Pulmonary embolism (Resolved) Acute bronchitis (Resolved) 1. Epididymoorchitis * Ongoing but slightly improved per the patient * Currently patient on 1 g of ceftriaxone, will increase to 2 g every 24 hours. * Adjust antibiotics accordingly based on culture results. * Surgical management, if necessary, per urology 2. Possible left knee bursitis * Clinically do not feel the patient has septic arthritis as he has no joint effusion is most of his pain and tenderness is anteriorly. * Had a similar presentation approximately 3 years ago and was aspirated and culture at that time was negative * Concern from my standpoint is is if this is a an acute gout flare. With his left great toe swelling. * If aspiration is performed, obviously getting a culture would be appropriate but also recommend checking for crystals 3. Left great toe swelling * As above #2 * Certainly could be septic arthritis though I have low suspicion. Would favor more of this being an acute gouty flare * A serum uric acid during acute gouty flare is of low yield checked and patient is not having any flare * Of aspiration is done of the bursitis and checking for crystals would be recommended 4. Paroxysmal atrial fibrillation * Controlled * Continue with metoprolol tartrate * Hold off on apixaban until we know if the patient is can have an aspiration of his knee 5. VTE prophylaxis: SCD until apixaban is resumed. Code Visit Inpatient E&M: 49527 Subs Hosp L3
--- NOTE | 2019-01-10 10:13 | RAD_ITS ---
STUDY: X-RAY - LEFT KNEE REASON FOR EXAM: Edema. TECHNIQUE: 2 view(s) of the knee. COMPARISON: Radiographs 05/06/2016. FINDINGS: Normal visualized distal femur. Normal visualized proximal tibia and fibula. Normal proximal tibiofibular articulation. There is moderate joint space narrowing of the medial femorotibial compartment. Normal lateral femorotibial compartment. There is mild joint space narrowing of the patellofemoral articulation. There is soft tissue swelling. There is a very small metallic foreign body and a small calcification at the anterior aspect of the distal quadriceps tendon as on the prior study. There are vascular clips. RAD/Knee 1 or 2 Views IMPRESSION: Arthrosis of the medial femorotibial and patellofemoral compartments. Soft tissue swelling. Electronically Signed: Filiberto Cuevas MD at 13:35 EDT Tel , Service support ,
[2019-01-10] MEDS: hydroCHLOROthiazide 12.5mg 12.5 MG PO (10:32)
[2019-01-10] MEDS: Losartan Potassium 50 MG Tablet PO (10:32)
[2019-01-10] MEDS: Metoprolol Tartrate 25 MG Tablet PO ×2 (10:33→22:22)
[2019-01-10 11:41] LABS: Bedside Glucose 117 mg/dL (70-110)
--- NOTE | 2019-01-10 12:33 | CON.PCM_ITS ---
Reason for Consult Date of Consultation: 01/10/19 History of Present Illness: The patient is a 68 year old M who admitted for scrotal cellulitis seen by dr cheung, also complains of left knee anterior knee pain and left great toe pain and swelling. Patient has had both of these in the past and diagnosed with gout in the past. Patient has also been aspirated his prepatellar bursa by my partner it was negative for infection at that time patient did better on treatment for gout at that time. Patient again presents today with scrotal cellulitis Ortho consulted for bursa swelling and pain. 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) CABG 12/17/03, Left internal thoracic artery bypass to first diagonal of LAD, SVG to LAD & posterior descending of RCA, SVG to ramus intermedius of CX & then to 3rd marginal branch of cx; intermission coordinator use of drug (Chronic) DM2 (diabetes mellitus, type 2) (Chronic) Asthma (Chronic) Medical History: Medical History (Last Reviewed 12/11/18 @ 08:44 by Michelle Hoyos) Premature ventricular contractions (Chronic) I49.3 Paroxysmal atrial fibrillation (Chronic) I48.0 Pure hypercholesterolemia (Chronic) E78.00 Essential hypertension (Chronic) I10 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) Z79.899 DM2 (diabetes mellitus, type 2) (Chronic) E11.9 Asthma (Chronic) J45.909 DVT (deep venous thrombosis) (Resolved) I82.409 Pulmonary embolism (Resolved) I26.99 Diabetes mellitus type II, controlled E11.9 Allergies simvastatin Adverse Reaction (Severe, Verified 01/09/19 10:24) Myalgias,severe Home Medications: Ambulatory Orders Medication Instructions Recorded Aspirin [Aspirin, Baby] 81 mg PO DAILY@0800 09/07/15 Montelukast [Singulair] 10 mg PO DAILY 09/07/15 Multivitamin [Daily Multiple 1 ea PO DAILY 09/07/15 Vitamin] Pyridoxine HCl [Vitamin B-6] 100 mg PO DAILY 09/07/15 Cholecalciferol (Vitamin D3) 6,000 unit PO DAILY 08/12/16 [Vitamin D3] Glucosamine/Chondroitin A/MSM 2 ea PO DAILY 08/12/16 [Gqagspfukze-Phsxfsyswxe-CST Tb] coenzyme Q10 300 mg capsule 300 mg PO BID 07/19/17 magnesium 400 mg (as magnesium 400 mg PO QDAY cap 07/19/17 oxide) capsule ascorbic acid (vitamin C) 500 mg 500 mg PO DAILY 10/24/17 capsule budesonide-formoterol HFA 160 2 puff INHALATION Q12H 12/11/18 mcg-4.5 mcg/actuation aerosol inhaler gabapentin 100 mg capsule 100 mg PO TID 12/11/18 metformin 500 mg tablet 500 mg PO BID tab 12/11/18 rosuvastatin 20 mg tablet 20 mg PO DAILY 12/11/18 tramadol 50 mg tablet 50 mg PO DAILY PRN tab 12/11/18 Metoprolol Tartrate [Lopressor 25 mg PO BID 01/09/19 (beta betty)] Tamsulosin HCl 0.4 mg PO QHS 01/09/19 Acetaminophen 2 tab PO TID PRN #1 tab 01/11/19 Apixaban [Eliquis] 2.5 mg PO BID #0 01/11/19 Colchicine 0.6 mg PO DAILY PRN #20 tab 01/11/19 Ibuprofen 4 tab PO TID PRN #1 tab 01/11/19 Losartan Potassium [Cozaar] 50 mg PO DAILY #30 tab 01/11/19 Omeprazole 20 mg PO DAILY #1 tab. 01/11/19 levoFLOXacin tablet [Levaquin 750 mg PO DAILY #10 tab 01/11/19 tablet] Surgical History: Surgical History (Last Reviewed 12/11/18 @ 08:44 by Michelle Hoyos) H/O coronary artery bypass surgery (Chronic) Onset Date: ~12/17/03 Z95.1 CABG 12/17/03, Left internal thoracic artery bypass to first diagonal of LAD, SVG to LAD & posterior descending of RCA, SVG to ramus intermedius of CX & then to 3rd marginal branch of cx; S/P coronary artery bypass graft x 2 Z95.1 12/17/03, left internal thoracic artery bypass to first diagonal of LAD, SVG to LAD & posterior descending of RCA, SVG to ramus intermedius of CX & 3rd marginal branch of CX Surgical History: - - CABG x 5, right rotator cuff repair, tonsillectomy, umbilical hernia repair, trigger finger intervention, history of prior scrotal versus testicular abscess status post drainage approximately 3 years prior to current presentation. Psychiatric History: No pertinent psych hx Lives: Spouse/ Significant Other Smoking Status: Never smoker Tobacco Use: Non-smoker Alcohol: Occasional Drugs: None - *Family History Maternal Family History: Family History (Last Reviewed 12/11/18 @ 08:44 by Michelle Hoyos) Father Myocardial infarction CAD (coronary artery disease) Brother Hypertension History Items: Heart Disease Paternal Family History: Family History (Last Reviewed 12/11/18 @ 08:44 by Michelle Hoyos) Father Myocardial infarction CAD (coronary artery disease) Brother Hypertension History Items: Heart Disease Review of Systems Constitutional: Denies: Chills, Fever, Weight Change HEENT: Denies: Head Aches, Sinus Congestion, Sinus Drainage Cardiovascular: Denies: Chest Pain, Palpitations Respiratory: Denies: Cough, Shortness of breath at rest, Sputum production Gastrointestinal: Denies: Abdominal Pain, Nausea, Vomiting Genitourinary: Denies: Dysuria Musculoskeletal: Reports: Joint Pain. Denies: Joint Tenderness Skin: Denies: Rash, Wounds Neurological: Denies: Numbness, Tingling, Focal weakness Psychiatric: Denies: Anxiety, Depression, Homicidal Ideations, Suicidal Ideations Hematologic/ Lymphatic: Denies: Easy Bruising, Easy Bleeding - Physical Exam General: Alert, Oriented x3, Cooperative HEENT: Atraumatic, PERRLA, EOMI, Normocephalic Neck: Supple, No JVD, Negative Carotid Bruits Lungs: Clear to auscultation, Normal air movement Cardiovascular: Regular rate, No murmurs Abdomen: Bowel Sounds Present, Soft, Non Tender Extremities: No edema, Capillary Refill Less than 3 Seconds Skin: No rashes, No breakdown Musculoskeletal: Tenderness - Tenderness along his anterior patella, no joint effusion, no pain with range of motion of his knee joint, active range of motion passive range motion ankle intact, compartment soft, sensation grossly intact, negative [place] Neurological: Cranial nerves II-XII grossly intact Psych/Mental Status: Normal Affect, Appropriate Vital Signs Temp Pulse Resp BP Pulse Ox 98.2 F 70 18 119/64 94 01/10/19 07:53 01/10/19 10:33 01/10/19 07:53 01/10/19 07:53 01/10/19 07:53 Oxygen Delivery Method Room Air Weight: 197 lb Body Mass Index (BMI) 29.9 Finger Stick Blood Glucose 119 Intake and Output for Last 24 Hours 01/08/19 01/09/19 01/10/19 23:59 23:59 23:59 Intake Total 891 / 1541 2393 / 2393 Output Total 1950 / 1950 Balance 891 / 741 443 / 443 Laboratory Tests Past 24 Hrs 01/10/19 01/10/19 05:16 05:16 WBC 8.0 RBC 4.20 L Hgb 12.4 L Hct 37.9 L MCV 90.2 MCH 29.5 MCHC 32.7 RDW Std Deviation 44.1 H RDW Coeff of Enma 13.3 Plt Count 248 MPV 10.0 Immature Gran % (Auto) 0.900 Neut % (Auto) 66.3 Lymph % (Auto) 19.6 [place] % (Auto) 9.0 Eos % (Auto) 3.9 Baso % (Auto) 0.3 Absolute Neuts (auto) 5.3 Absolute Lymphs (auto) 1.57 Nucleated RBC % 0 Sodium 139 Potassium 4.0 Chloride 106 Carbon Dioxide 24.0 Anion Gap 9 BUN 19 H Creatinine 0.75 Estim Creat Clear Calc 66.50 Est GFR (MDRD) Af Amer 132 Est GFR (MDRD) Non-Af 109 BUN/Creatinine Ratio 25.3 H Glucose 105 Calcium 8.5 POC Glucose 01/10/19 01/10/19 01/09/19 11:37 06:40 21:36 POC Glucose 117 H 99 116 H 01/09/19 17:07 POC Glucose 147 H Assessment/Plan All Active Problems (Last Reviewed 12/11/18 @ 08:44 by Michelle Hoyos) Cellulitis of scrotum (Acute) DVT (deep venous thrombosis) (Resolved) Pulmonary embolism (Resolved) Acute bronchitis (Resolved) left knee prepatella bursitis xrays negative for osseous etiology slight fluctuence witout erythema- not obviously infected and at this time on broad spectrum antibiotics and if place needle into bursae could make it worse treatment is antibiotics and with known history of this in past with neg cultures will follow and if increased fluid in knee will aspirate and send not in the knee joint so not urgent to culture/aspirate/operate at this time again, will follow and if increased fluid will aspirate but thickened bursae as has had previous bursitis of this area and no septic appearance to knee ceftriaxone agree may be d/t gout but will await response to colchicine great toe- consult podiatry as had seen [place] in the past for great toe issues as recent as 6 weeks ago please call with concerns/questions [phone]
[2019-01-10] MEDS: Morphine 2 MG/ML Syringe IV (15:12)
[2019-01-10] MEDS: Insulin Lispro 100 UNIT/ML INSULN.PEN SC ×2 (16:41→22:22)
[2019-01-10 16:45] LABS: Bedside Glucose 165 mg/dL (70-110)
--- NOTE | 2019-01-10 17:09 | CON.PCM_ITS ---
Reason for Consult Date of Consultation: 01/10/19 Reason for Consultation: swelling, pain, erythema of left hallux History of Present Illness: [The patient is a 68 y/o M w/ PMHx: Diabetes mellitus type 2 with neuropathy, hypertension, hyperlipidemia, asthma, history of DVT/PE, ? PAF, CAD status post CABG x5, obesity who presents to the [facility] per recommendation of his urologist Dr. Ken on 01/09/19 with history of initial right testicular discomfort and dysuria. He was consulted to podiatry for some erythema, swelling, pain to the left great toe and area slightly proximal. Patient also has pain and tenderness with his left knee which orthopedics has been consulted for as well. Patient states he had a scrotal infection approximately 3 years ago and had issues with his knee at that time as well and down into the lower leg. Patient and his state that after some changing of antibiotics that the area started to clear up and get better. Patient states that he feels the pain as well as redness have improved since yesterday in the left great toe, but still relates the area is sore and painful. Patient currently denies any feelings of nausea, vomiting, fever, chills.] Past Medical History Past Medical History (Chronic Problems): Chronic Problems (Last Reviewed 12/11/18 @ 08:44 by Michelle Hoyos) Premature ventricular contractions (Chronic) Paroxysmal atrial fibrillation (Chronic) Pure hypercholesterolemia (Chronic) Essential hypertension (Chronic) Atherosclerotic heart disease of [place] coronary artery without angina pectoris (Chronic) H/O coronary artery bypass surgery (Chronic ~12/17/03) CABG 12/17/03, Left internal thoracic artery bypass to first diagonal of LAD, SVG to LAD & posterior descending of RCA, SVG to ramus intermedius of CX & then to 3rd marginal branch of cx; FPC use of drug (Chronic) DM2 (diabetes mellitus, type 2) (Chronic) Asthma (Chronic) Medical History: Medical History (Last Reviewed 12/11/18 @ 08:44 by Michelle Hoyos) Premature ventricular contractions (Chronic) I49.3 Paroxysmal atrial fibrillation (Chronic) I48.0 Pure hypercholesterolemia (Chronic) E78.00 Essential hypertension (Chronic) I10 Atherosclerotic heart disease of [place] coronary artery without angina pectoris (Chronic) I25.10 FPC use of drug (Chronic) Z79.899 DM2 (diabetes mellitus, type 2) (Chronic) E11.9 Asthma (Chronic) J45.909 DVT (deep venous thrombosis) (Resolved) I82.409 Pulmonary embolism (Resolved) I26.99 Diabetes mellitus type II, controlled E11.9 Allergies simvastatin Adverse Reaction (Severe, Verified 01/09/19 10:24) Myalgias,severe Home Medications: Ambulatory Orders Medication Instructions Recorded Aspirin [Aspirin, Baby] 81 mg PO DAILY@0800 09/07/15 Montelukast [Singulair] 10 mg PO DAILY 09/07/15 Multivitamin [Daily Multiple 1 ea PO DAILY 09/07/15 Vitamin] Pyridoxine HCl [Vitamin B-6] 100 mg PO DAILY 09/07/15 Cholecalciferol (Vitamin D3) 6,000 unit PO DAILY 08/12/16 [Vitamin D3] Glucosamine/Chondroitin A/MSM 2 ea PO DAILY 08/12/16 [Vivycgnhprz-Xmikqjtdfle-OZS Tb] coenzyme Q10 300 mg capsule 300 mg PO BID 07/19/17 magnesium 400 mg (as magnesium 400 mg PO QDAY cap 07/19/17 oxide) capsule ascorbic acid (vitamin C) 500 mg 500 mg PO DAILY 10/24/17 capsule apixaban 2.5 mg tablet 2.5 mg PO BID 12/11/18 budesonide-formoterol HFA 160 2 puff INHALATION Q12H 12/11/18 mcg-4.5 mcg/actuation aerosol inhaler gabapentin 100 mg capsule 100 mg PO TID 12/11/18 metformin 500 mg tablet 500 mg PO BID tab 12/11/18 rosuvastatin 20 mg tablet 20 mg PO DAILY 12/11/18 tramadol 50 mg tablet 50 mg PO DAILY PRN tab 12/11/18 valsartan 160 1 tab PO DAILY 12/11/18 mg-hydrochlorothiazide 12.5 mg tablet Ciprofloxacin [Cipro] 500 mg PO BID #14 tab 01/07/19 Metoprolol Tartrate [Lopressor 25 mg PO BID 01/09/19 (beta betty)] Tamsulosin HCl 0.4 mg PO QHS 01/09/19 Surgical History: Surgical History (Last Reviewed 12/11/18 @ 08:44 by Michelle Hoyos) H/O coronary artery bypass surgery (Chronic) Onset Date: ~12/17/03 Z95.1 CABG 12/17/03, Left internal thoracic artery bypass to first diagonal of LAD, SVG to LAD & posterior descending of RCA, SVG to ramus intermedius of CX & then to 3rd marginal branch of cx; S/P coronary artery bypass graft x 2 Z95.1 12/17/03, left internal thoracic artery bypass to first diagonal of LAD, SVG to LAD & posterior descending of RCA, SVG to ramus intermedius of CX & 3rd marginal branch of CX Surgical History: - - CABG x 5, right rotator cuff repair, tonsillectomy, umbilical hernia repair, trigger finger intervention, history of prior scrotal versus testicular abscess status post drainage approximately 3 years prior to current presentation. Psychiatric History: No pertinent psych hx Lives: Spouse/ Significant Other Smoking Status: Never smoker Tobacco Use: Non-smoker Alcohol: Occasional Drugs: None - *Family History Maternal Family History: Family History (Last Reviewed 12/11/18 @ 08:44 by Michelle Hoyos) Father Myocardial infarction CAD (coronary artery disease) Brother Hypertension History Items: Heart Disease Paternal Family History: Family History (Last Reviewed 12/11/18 @ 08:44 by Michelle Hoyos) Father Myocardial infarction CAD (coronary artery disease) Brother Hypertension History Items: Heart Disease Review of Systems Constitutional: Denies: Chills, Fever, Weight Change HEENT: Denies: Head Aches, Sinus Congestion, Sinus Drainage Cardiovascular: Denies: Chest Pain, Palpitations Respiratory: Denies: Cough, Shortness of breath at rest, Sputum production Gastrointestinal: Denies: Abdominal Pain, Nausea, Vomiting Genitourinary: Reports: Dysuria Musculoskeletal: Reports: - - Pain to left hallux Skin: Denies: Rash, Wounds Neurological: Denies: Numbness, Tingling, Focal weakness Psychiatric: Denies: Anxiety, Depression, Homicidal Ideations, Suicidal Ideations Patient Problems: Active and Suspected Problems (Last Reviewed 12/11/18 @ 08:44 by Michelle Hoyos) Cellulitis of scrotum (Acute) - Physical Exam General: Alert, Oriented x3, Cooperative Extremities: No cyanosis, Capillary Refill Less than 3 Seconds - To all distal digits of the left foot, No Calf Tenderness - Negative Nguyen and Anrold sign, Edema - To left hallux Skin: - - There are no open wounds or ulcers appreciated to the left foot. There is an area of erythema to the hallux and very distal medial foot. The area of erythema is shown to have receded from the outlined leydi started yesterday. Very slight increase in warmth noted on palpation of the area. No fluctuance or crepitus appreciated. Musculoskeletal: Tenderness - With manipulation of left hallux Neurological: Sensory exam intact to light touch and pain Psych/Mental Status: Normal Affect, Appropriate Vital Signs Temp Pulse Resp BP Pulse Ox 98.4 F 68 16 118/67 97 01/10/19 13:58 01/10/19 13:58 01/10/19 13:58 01/10/19 13:58 01/10/19 13:58 Oxygen Delivery Method Room Air Weight: 89.358 kg Body Mass Index (BMI) 29.9 Finger Stick Blood Glucose 119 Intake and Output for Last 24 Hours 01/08/19 01/09/19 01/10/19 23:59 23:59 23:59 Intake Total 891 / 1541 2393 / 2393 Output Total 1950 / 1950 Balance 891 / 741 443 / 443 Laboratory Tests Past 24 Hrs 01/10/19 01/10/19 05:16 05:16 WBC 8.0 RBC 4.20 L Hgb 12.4 L Hct 37.9 L MCV 90.2 MCH 29.5 MCHC 32.7 RDW Std Deviation 44.1 H RDW Coeff of Enma 13.3 Plt Count 248 MPV 10.0 Immature Gran % (Auto) 0.900 Neut % (Auto) 66.3 Lymph % (Auto) 19.6 Meeker % (Auto) 9.0 Eos % (Auto) 3.9 Baso % (Auto) 0.3 Absolute Neuts (auto) 5.3 Absolute Lymphs (auto) 1.57 Nucleated RBC % 0 Sodium 139 Potassium 4.0 Chloride 106 Carbon Dioxide 24.0 Anion Gap 9 BUN 19 H Creatinine 0.75 Estim Creat Clear Calc 66.50 Est GFR (MDRD) Af Amer 132 Est GFR (MDRD) Non-Af 109 BUN/Creatinine Ratio 25.3 H Glucose 105 Calcium 8.5 POC Glucose 01/10/19 01/10/19 01/10/19 16:35 11:37 06:40 POC Glucose 165 H 117 H 99 01/09/19 01/09/19 21:36 17:07 POC Glucose 116 H 147 H Assessment/Plan All Active Problems (Last Reviewed 12/11/18 @ 08:44 by Michelle Hoyos) Cellulitis of scrotum (Acute) DVT (deep venous thrombosis) (Resolved) Pulmonary embolism (Resolved) Acute bronchitis (Resolved) This patient was carefully examined and evaluated resting in his bed comfortably with his in the room this evening. Patient was consulted to podiatry for redness swelling and pain to the left hallux and distal medial left foot. There is erythema to this area and some slight increase in warmth. The area of erythema has receded from the outlined leydi on the patient's foot from yesterday. Patient relates his pain is slightly better since yesterday but there is still tenderness present. Patient's WBC is 8.0. His vital signs are all currently stable. Patient's urine and blood cultures are still pending. At this time will order a uric acid for this patient as well as a left foot x-ray. Can also discuss possible expansion of antibiotics. Should the patient's pain and erythema still be present tomorrow, can consider possible joint aspiration or MRI for further evaluation. For now, patient should be nonweightbearing to the left foot. He is to keep the area elevated while in bed. Continued medical management DVT prophylaxis appreciated per primary team. Podiatry will continue to follow this patient while in house.
--- NOTE | 2019-01-10 17:40 | RAD_ITS ---
STUDY: X-RAY - LEFT FOOT CLINICAL: Male, 68 years old. Left foot swelling great toe redness TECHNIQUE: 3 view(s) of the foot. COMPARISON: None. FINDINGS: Normal talus, calcaneus, and tarsal bones. Moderate plantar calcaneal spur. Normal visualized subtalar, talonavicular, calcaneocuboid, tarsal and tarsometatarsal articulations. Normal metatarsi. Normal metatarsophalangeal joint of the great toe. Normal tibial and fibular sesamoid bones. Normal interphalangeal joint of the great toe. Normal phalanges of the great toe. Normal second through fifth metatarsophalangeal joints. Normal interphalangeal joints and phalanges of the lesser toes. Soft tissue swelling great toe. RAD/Foot min 3 Views IMPRESSION: Soft tissue swelling great toe. Triple phase bone scan or MRI would be more sensitive if clinically warranted. Electronically Signed: Fermin Horner MD at 17:55 EDT , Service support ,
[2019-01-10 18:35] LABS: Uric Acid 6.7 mg/dL (3.5-7.2)
[2019-01-10] MEDS: Montelukast 10 MG Tablet PO (22:22)
[2019-01-10] MEDS: Atorvastatin Calcium 40 MG Tablet PO (22:23)
[2019-01-10] MEDS: Tamsulosin HCl 0.4 MG Capsule PO (22:23)
[2019-01-10 22:41] LABS: Bedside Glucose 203 mg/dL (70-110)
[2019-01-11] VITALS (7 sets, daily range): BP systolic 107–142; BP diastolic 50–74; PULSE 74–78; RESP 16–18; TEMP 36.9–37.5; O2SAT 94–97
[2019-01-11] MEDS: 0.9% Normal Saline 1,000 ML 75 ML IV ×2 (04:13→16:59)
[2019-01-11] MEDS: oxyCODONE 5 MG Tablet PO ×3 (04:15→16:58)
[2019-01-11 06:36] LABS: Bedside Glucose 129 mg/dL (70-110)
--- NOTE | 2019-01-11 07:34 | PCM.PN.BLA ---
Progress Note 68-year-old male was brought into the hospital for left orchitis but at this point now he has multiple medical problems probably better be transferred onto the medical service and off the urological service since he has bursitis of the knee and also has new left infected toe he is being seen by podiatry by this, his testicle on the right side is actually much better the swelling is gone down. Antibiotics been changed by medical service. 68-year-old male with left epididymoorchitis who is now has multiple medical problems. Continue with medical management per hospitalist will follow.
[2019-01-11] MEDS: Acetaminophen 325 MG Tablet 650 MG PO ×2 (09:45→16:57)
[2019-01-11] MEDS: Docusate Sodium 100 MG Capsule PO ×2 (09:45→21:20)
[2019-01-11] MEDS: Metoprolol Tartrate 25 MG Tablet PO ×2 (09:46→21:28)
[2019-01-11] MEDS: Multivitamins,Therapeutic Tablet 1 TABLET PO (09:47)
[2019-01-11] MEDS: Aspirin 81 MG TAB.CHEW PO (09:47)
[2019-01-11] MEDS: Gabapentin 100 MG Capsule PO ×3 (09:47→16:57)
[2019-01-11] MEDS: Pyridoxine HCl 100 MG Tablet PO (09:47)
[2019-01-11] MEDS: Losartan Potassium 50 MG Tablet PO (09:48)
--- NOTE | 2019-01-11 10:23 | PN_ITS ---
Patient Problems: Active and Suspected Problems (Last Reviewed 12/11/18 @ 08:44 by Michelle Hoyos) Cellulitis of scrotum (Acute) Subjective: still with pain in left knee and left great toe. decreased scrotal pain and swelling. Vitals/I&O's: Vital Signs Temp Pulse Resp BP Pulse Ox 37.5 C H 76 16 142/74 H 97 01/11/19 07:40 01/11/19 09:46 01/11/19 07:40 01/11/19 07:40 01/11/19 07:40 Oxygen Delivery Method Room Air Weight: 89.358 kg Body Mass Index (BMI) 29.9 Finger Stick Blood Glucose 119 Intake and Output for Last 24 Hours 01/09/19 01/10/19 01/11/19 23:59 23:59 23:59 Intake Total 891 / 1541 3605 / 4355 1266 / 1266 Output Total 2950 / 3570 1440 / 1440 Balance 891 / 741 655 / 785 -174 / -174 General: Alert, No apparent distress HEENT: Atraumatic, Normocephalic Extremities: No edema, No Calf Tenderness Skin: No rashes, No breakdown Musculoskeletal: - - TTP over left anterior knee. no knee effusion. TTP on dorsal aspect of left great toe especially at PIP. Psych/Mental Status: Appropriate, Anxious Laboratory Results 01/10/19 11:37: POC Glucose 117 H 01/10/19 16:35: POC Glucose 165 H 01/10/19 18:11: Uric Acid 6.7 01/10/19 22:21: POC Glucose 203 H 01/11/19 06:30: POC Glucose 129 H Current Medications Acetaminophen (Tylenol) 650 mg PO Q6H PRN PRN PRN Reason: Mild Pain (1-3)/Temp > 100.7 F Last Admin: 01/11/19 09:45 Dose: 650 mg Documented by: Albuterol Sulfate (Ventolin Aerosols) 2.5 mg INHALATION Q2H PRN PRN PRN Reason: dyspnea, wheezing Albuterol Sulfate (Ventolin Aerosols) 2.5 mg INHALATION Q6HWA.RT [facility] Last Admin: 01/11/19 07:20 Dose: Not Given Documented by: Apixaban (Eliquis) 2.5 mg PO BID [facility] Last Admin: 01/09/19 21:34 Dose: 2.5 mg Documented by: Aspirin (Aspirin, Baby) 81 mg PO DAILY@0800 [facility] Last Admin: 01/11/19 09:47 Dose: 81 mg Documented by: Atorvastatin Calcium (Lipitor) 40 mg PO QHS [facility] Last Admin: 01/10/19 22:23 Dose: 40 mg Documented by: Budesonide (Pulmicort Aerosol) 0.5 mg INHALATION Q12H.RT [facility] Last Admin: 01/11/19 08:44 Dose: Not Given Documented by: Dextrose (D50w Syringe) 0 gm IV X1 PRN; Protocol PRN Reason: Hypoglycemia Docusate Sodium (Colace) 100 mg PO BID PRN PRN PRN Reason: Constipation Last Admin: 01/11/19 09:45 Dose: 100 mg Documented by: Gabapentin (Neurontin) 100 mg PO TIDCM [facility] Last Admin: 01/11/19 09:47 Dose: 100 mg Documented by: Glucagon () 1 mg IM .X1 PRN PRN Reason: Hypoglycemia Guaifenesin (Robitussin) 20 ml PO Q4H PRN PRN PRN Reason: COUGH Hydralazine HCl (Apresoline Iv) 10 mg IV Q4H PRN PRN PRN Reason: SBP > 160 Hydrochlorothiazide () 12.5 mg PO DAILY [facility] Last Admin: 01/10/19 10:32 Dose: 12.5 mg Documented by: Sodium Chloride () 1,000 mls @ 75 mls/hr IV .[id number] [facility] Last Admin: 01/11/19 04:13 Dose: 75 mls/hr Documented by: Ceftriaxone Sodium 2 gm/ (Sodium Chloride) 50 mls @ 100 mls/hr IV Q24 [facility] Last Admin: 01/11/19 09:55 Dose: 100 mls/hr Documented by: Insulin Human Lispro (Humalog Kwikpen (Bkc)) 0 unit SC ACHS [facility]; Protocol Last Admin: 01/11/19 06:31 Dose: Not Given Documented by: Losartan Potassium (Cozaar) 50 mg PO DAILY [facility] Last Admin: 01/11/19 09:48 Dose: 50 mg Documented by: Metoprolol Tartrate (Lopressor (Beta Yaya)) 25 mg PO BID [facility] Last Admin: 01/11/19 09:46 Dose: 25 mg Documented by: Montelukast Sodium (Singulair) 10 mg PO DAILY@2200 [facility] Last Admin: 01/10/19 22:22 Dose: 10 mg Documented by: Morphine Sulfate () 2 mg IV Q3H PRN PRN PRN Reason: Severe pain (7-10/10) Last Admin: 01/10/19 15:12 Dose: 2 mg Documented by: Multivitamins (Multivitamin) 1 tablet PO DAILY@0800 [facility] Last Admin: 01/11/19 09:47 Dose: 1 tablet Documented by: Ondansetron HCl (Zofran) 4 mg IV Q8H PRN PRN PRN Reason: NAUSEA/VOMITING Last Admin: 01/10/19 06:46 Dose: 4 mg Documented by: Oxycodone HCl (Oxyir) 5 mg PO Q4H PRN PRN PRN Reason: Moderate Pain (4-6/10) Last Admin: 01/11/19 09:46 Dose: 5 mg Documented by: [facility]id[facility]ine [facility] ([facility]) [facility] Last Admin: 01/11/19 09:47 Dose: 100 mg Documented by: Tamsulosin HCl (Flomax) 0.4 mg PO QHS [facility] Last Admin: 01/10/19 22:23 Dose: 0.4 mg Documented by: Temazepam (Restoril) 15 mg PO QHS PRN PRN PRN Reason: INSOMNIA Medical Necessity - Tobacco Use Smoking Status: Never smoker Tobacco Use: Non-smoker Assessment/Plan All Active Problems (Last Reviewed 12/11/18 @ 08:44 by Michelle Hoyos) Cellulitis of scrotum (Acute) DVT (deep venous thrombosis) (Resolved) Pulmonary embolism (Resolved) Acute bronchitis (Resolved) 1. Epididymoorchitis * Improving * CTX 2 g every 24 hours. * follow up cultures, thus far, negative. * Surgical management, if necessary, per urology 2. Possible left knee bursitis * Clinically do not feel the patient has septic arthritis as he has no joint effusion is most of his pain and tenderness is anteriorly. * Had a similar presentation approximately 3 years ago and was aspirated and culture at that time was negative * Concern from my standpoint is is if this is a an acute gout flare. With his left great toe swelling. * If aspiration is performed, obviously getting a culture would be appropriate but also recommend checking for crystals 3. Left great toe swelling * As above #2 * Certainly could be septic arthritis though I have low suspicion. Would favor more of this being an acute gouty flare * A serum uric acid during acute gouty flare is of low yield checked and patient is not having any flare. Was checked and was 6.7. This does not rule out an acute gout flare, however. * Will give a dose of colchicine. * Of aspiration is done of the bursitis and checking for crystals would be recommended * DW Dr. Ho about aspiration. He will see and assess. 4. Paroxysmal atrial fibrillation * Controlled * Continue with metoprolol tartrate * Hold off on apixaban until we know if the patient is can have an aspiration of his knee/toe 5. VTE prophylaxis: SCD until apixaban is resumed. Greater then 35 minutes of which greater than 50% of the time was coordinating care about the possibility of this being an acute gout flare and treatment options. MANDIE patient and his . Code Visit Inpatient E&M: 93459 Subs Hosp L3
[2019-01-11] MEDS: Ondansetron 4 MG/2 ML Vial IV (10:39)
[2019-01-11] MEDS: Insulin Lispro 100 UNIT/ML INSULN.PEN SC ×2 (11:56→21:20)
[2019-01-11 12:20] LABS: Bedside Glucose 167 mg/dL (70-110)
[2019-01-11 13:12] LABS: CRYSTALS, BODY FLUID MONOSODIUM URATE; Source- Body Fluid SYNOVIAL
[2019-01-11 13:13] LABS: Body Fluid QC Type(s) BF3Q
--- NOTE | 2019-01-11 13:27 | PCM.PROGNOTE ---
Patient Problems: Active and Suspected Problems (Last Reviewed 12/11/18 @ 08:44 by Michelle Hoyos) Cellulitis of scrotum (Acute) Subjective: Patient was seen today for follow up left foot, has pain, swelling and some redness over the 1st toe joints. He relates symptoms started on Tuesday, relates it is very painful. He has been icing it. He does not relate to any fever, chills, nausea or vomiting. He has been on antibiotics. - Physical Exam General: Alert, Oriented x3, Cooperative, No apparent distress Extremities: No Calf Tenderness, Peripheral Pulses Normal, - - Left foot with edema and erythema and significant pain overlying the 1st MTPJ and IPJ hallux, there is very mild similar symptoms to the right hallux IPJ. There are no open lesions, no maloder, no necrosis, no blistering, no crepitus, no fluctuance, no drainage present bilateral foot or ankle. Sensation intact bilateral foot/ankle. Muscle function intact bilateral foot/ankle. Psych/Mental Status: Normal Affect, Appropriate, Alert and oriented to time, place, person, mood and affect Vital Signs Temp Pulse Resp BP Pulse Ox 99.5 F H 76 16 142/74 H 97 01/11/19 07:40 01/11/19 09:46 01/11/19 07:40 01/11/19 07:40 01/11/19 07:40 Oxygen Delivery Method Room Air Weight: 89.358 kg Body Mass Index (BMI) 29.9 Finger Stick Blood Glucose 119 Intake and Output for Last 24 Hours 01/09/19 01/10/19 01/11/19 23:59 23:59 23:59 Intake Total 891 / 1541 3605 / 4355 1944 / 1944 Output Total 2950 / 3570 1815 / 1815 Balance 891 / 741 655 / 785 129 / 129 Microbiology Past 72 Hours 01/09/19 15:45 Urine Culture - Preliminary Urine, Clean Catch Culture exhibits no growth. Laboratory Tests Past 24 Hrs 01/10/19 01/11/19 18:11 12:47 Uric Acid 6.7 Fluid Crystals MONOSODIUM URATE Fluid Crystal Source SYNOVIAL POC Glucose 01/11/19 01/11/19 01/10/19 11:55 06:30 22:21 POC Glucose 167 H 129 H 203 H 01/10/19 16:35 POC Glucose 165 H Medical Necessity - Tobacco Use Smoking Status: Never smoker Tobacco Use: Non-smoker Assessment/Plan All Active Problems (Last Reviewed 12/11/18 @ 08:44 by Michelle Hoyos) Cellulitis of scrotum (Acute) DVT (deep venous thrombosis) (Resolved) Pulmonary embolism (Resolved) Acute bronchitis (Resolved) Likely gout left 1st MTPJ, hallux IPJ, mild to right 1st toe IPJ Reviewed left foot xrays, as well as labs. Given findings we discussed 1st MTPJ and IPJ hallux (left) aspiration for further evaluation. Reviewed rationale of this with patient in detail, reviewed possible benefits vs risks, goals and expectations. Patient would like to proceed with the aspiration. The skin was cleansed with 70% isopropyl alcohol, 10mL of 1% Lidocaine plain was given as a local nerve block. The site was prepped with chlorhexidine. An aspiration was performed to the left 1st MTPJ and left hallux IPJ. There was ~0.5mL fluid from the joint, there appeared to be visible crystals present, there was some blood present as well in the aspirate, there was no purulence, no necrosis present. A gauze and bernadette dressing was applied. Keep clean, dry and intact. Aspirated fluid was sent to microbiology and pathology for further evaluation. Further management will depend on results. This was discussed with patient, he agreed. Podiatry will continue to follow.
[2019-01-11] MEDS: Ketorolac 15 MG/ML Vial IV ×2 (14:04→21:20)
[2019-01-11 14:41] LABS: Pathologist Review Reviewed
[2019-01-11 17:06] LABS: Bedside Glucose 135 mg/dL (70-110)
[2019-01-11] MEDS: Albuterol 2.5 MG/3 ML VIAL.NEB. INHALATION (18:46)
[2019-01-11] MEDS: Budesonide Respules 0.5 MG/2 ML AMPUL.NEB. INHALATION (18:46)
[2019-01-11] MEDS: dexAMETHasone 4 MG/ML Vial OPERA.SITE (19:37)
[2019-01-11] MEDS: Tamsulosin HCl 0.4 MG Capsule PO (21:28)
[2019-01-11] MEDS: Montelukast 10 MG Tablet PO (21:28)
[2019-01-11] MEDS: Atorvastatin Calcium 40 MG Tablet PO (21:28)
[2019-01-11 22:30] LABS: Bedside Glucose 256 mg/dL (70-110)
[2019-01-12 02:08] VITALS: BP 142/72; PULSE 62; RESP 16; TEMP 36.3; O2SAT 100
[2019-01-12 05:46] LABS: Bedside Glucose 194 mg/dL (70-110)
[2019-01-12] MEDS: 0.9% Normal Saline 1,000 ML 75 ML IV (06:38)
[2019-01-12 06:46] LABS: Bedside Glucose 149 mg/dL (70-110)
[2019-01-12 06:55] VITALS: PULSE 69; RESP 18
[2019-01-12] MEDS: Budesonide Respules 0.5 MG/2 ML AMPUL.NEB. INHALATION (06:55)
[2019-01-12] MEDS: Albuterol 2.5 MG/3 ML VIAL.NEB. INHALATION ×2 (06:55→14:09)
[2019-01-12 08:35] VITALS: BP 137/68; PULSE 83; RESP 18; TEMP 36.9; O2SAT 97
--- NOTE | 2019-01-12 08:46 | PN_ITS ---
Patient Problems: Active and Suspected Problems (Last Reviewed 12/11/18 @ 08:44 by Michelle Hoyos) Cellulitis of scrotum (Acute) Subjective: Feel much better after he had the intraarticular injection in toe yesterday. Vitals/I&O's: Vital Signs Temp Pulse Resp BP Pulse Ox 36.3 C L 69 18 142/72 H 100 01/12/19 02:08 01/12/19 06:55 01/12/19 06:55 01/12/19 02:08 01/12/19 02:08 Oxygen Delivery Method Room Air Weight: 89.358 kg Body Mass Index (BMI) 29.9 Finger Stick Blood Glucose 119 Intake and Output for Last 24 Hours 01/10/19 01/11/19 01/12/19 23:59 23:59 23:59 Intake Total 3605 / 4355 2997 / 3977 1863 / 1863 Output Total 2950 / 3570 2465 / 2665 700 / 700 Balance 655 / 785 532 / 1312 1163 / 1163 General: Alert, No apparent distress HEENT: Atraumatic, Normocephalic Oral: Moist Mucosa, No Gingival or Mucosal Lesions/ Ulcerations Extremities: No edema, No Calf Tenderness, - - decreased swelling of left anterior knee. left foot bandaged--did not remove. Musculoskeletal: No Tenderness to Palpation of Joints or Extremities, No Muscle Wasting Neurological: Sensory exam intact to light touch and pain, Coordination normal Psych/Mental Status: Normal Affect, Appropriate Microbiology Past 72 Hours 01/11/19 12:47 Wound - Toe Gram Stain - Final 01/09/19 15:45 Urine, Clean Catch Urine Culture - Final Culture exhibits no growth. Laboratory Results 01/11/19 11:55: POC Glucose 167 H 01/11/19 12:47: Fluid Crystals MONOSODIUM URATE, Fluid Crystal Source SYNOVIAL, Fl Crystal Path Review Reviewed 01/11/19 16:54: POC Glucose 135 H 01/11/19 21:19: POC Glucose 256 H 01/12/19 02:25: POC Glucose 194 H 01/12/19 06:36: POC Glucose 149 H Current Medications Acetaminophen (Tylenol) 650 mg PO Q6H PRN PRN PRN Reason: Mild Pain (1-3)/Temp > 100.7 F Last Admin: 01/11/19 16:57 Dose: 650 mg Documented by: Albuterol Sulfate (Ventolin Aerosols) 2.5 mg INHALATION Q2H PRN PRN PRN Reason: dyspnea, wheezing Albuterol Sulfate (Ventolin Aerosols) 2.5 mg INHALATION Q6HWA.RT [facility] Last Admin: 01/12/19 06:55 Dose: 2.5 mg Documented by: Apixaban (Eliquis) 2.5 mg PO BID [facility] Last Admin: 01/09/19 21:34 Dose: 2.5 mg Documented by: Aspirin (Aspirin, Baby) 81 mg PO DAILY@0800 [facility] Last Admin: 01/11/19 09:47 Dose: 81 mg Documented by: Atorvastatin Calcium (Lipitor) 40 mg PO QHS [facility] Last Admin: 01/11/19 21:28 Dose: 40 mg Documented by: Budesonide (Pulmicort Aerosol) 0.5 mg INHALATION Q12H.RT [facility] Last Admin: 01/12/19 06:55 Dose: 0.5 mg Documented by: Dextrose (D50w Syringe) 0 gm IV X1 PRN; Protocol PRN Reason: Hypoglycemia Docusate Sodium (Colace) 100 mg PO BID PRN PRN PRN Reason: Constipation Last Admin: 01/11/19 21:20 Dose: 100 mg Documented by: Gabapentin (Neurontin) 100 mg PO TIDCM [facility] Last Admin: 01/11/19 16:57 Dose: 100 mg Documented by: Glucagon () 1 mg IM .X1 PRN PRN Reason: Hypoglycemia Guaifenesin (Robitussin) 20 ml PO Q4H PRN PRN PRN Reason: COUGH Hydralazine HCl (Apresoline Iv) 10 mg IV Q4H PRN PRN PRN Reason: SBP > 160 Sodium Chloride () 1,000 mls @ 75 mls/hr IV .[id number] [facility] Last Admin: 01/12/19 06:38 Dose: 75 mls/hr Documented by: Ceftriaxone Sodium 2 gm/ (Sodium Chloride) 50 mls @ 100 mls/hr IV Q24 [facility] Last Admin: 01/11/19 09:55 Dose: 100 mls/hr Documented by: Insulin Human Lispro (Humalog Kwikpen (Bkc)) 0 unit SC ACHS [facility]; Protocol Last Admin: 01/12/19 06:38 Dose: Not Given Documented by: Ketorolac Tromethamine (Toradol) 15 mg IV Q6H PRN PRN PRN Reason: PAIN Stop: 01/16/19 17:26 Last Admin: 01/11/19 21:20 Dose: 15 mg Documented by: Losartan Potassium (Cozaar) 50 mg PO DAILY [facility] Last Admin: 01/11/19 09:48 Dose: 50 mg Documented by: Metoprolol Tartrate (Lopressor (Beta Yaya)) 25 mg PO BID [facility] Last Admin: 01/11/19 21:28 Dose: 25 mg Documented by: Montelukast Sodium (Singulair) 10 mg PO DAILY@2200 [facility] Last Admin: 01/11/19 21:28 Dose: 10 mg Documented by: Morphine Sulfate () 2 mg IV Q3H PRN PRN PRN Reason: Severe pain (7-10/10) Last Admin: 01/10/19 15:12 Dose: 2 mg Documented by: Multivitamins (Multivitamin) 1 tablet PO DAILY@0800 [facility] Last Admin: 01/11/19 09:47 Dose: 1 tablet Documented by: Ondansetron HCl (Zofran) 4 mg IV Q8H PRN PRN PRN Reason: NAUSEA/VOMITING Last Admin: 01/11/19 10:39 Dose: 4 mg Documented by: Oxycodone HCl (Oxyir) 5 mg PO Q4H PRN PRN PRN Reason: Moderate Pain (4-6/10) Last Admin: 01/11/19 16:58 Dose: 5 mg Documented by: [facility]idoxine [facility] ([facility]amin [facility]) [facility] Last Admin: 01/11/19 09:47 Dose: 100 mg Documented by: Tamsulosin HCl (Flomax) 0.4 mg PO QHS [facility] Last Admin: 01/11/19 21:28 Dose: 0.4 mg Documented by: Temazepam (Restoril) 15 mg PO QHS PRN PRN PRN Reason: INSOMNIA Medical Necessity - Tobacco Use Smoking Status: Never smoker Tobacco Use: Non-smoker Assessment/Plan All Active Problems (Last Reviewed 12/11/18 @ 08:44 by Michelle Hoyos) Cellulitis of scrotum (Acute) DVT (deep venous thrombosis) (Resolved) Pulmonary embolism (Resolved) Acute bronchitis (Resolved) 1. Epididymoorchitis * Improving * CTX 2 g every 24 hours. * LVQ Rx sent 2. Possible left knee bursitis * improving * likely 2/2 an acute gout flare 3. Podagra, acute * As above #2 * Confirmed monosodium urate crystals with aspiration--confirming an acute gout flare * improved after intraarticular injection with dexamethasone * PRN colchicine (Rx sent) * states he will take PRN acetaminophen and tramadol for pain. Patient advised of risks of bleeding with NSAIDs and apixaban. States he won't take 4. Paroxysmal atrial fibrillation * Controlled * Continue with metoprolol tartrate * Hold off on apixaban until we know if the patient is can have an aspiration of his knee/toe Medically stable for discharge. Will sign off. Don't hesitate to contact me for questions. Code Visit Inpatient E&M: 52974 Subs Hosp L2
[2019-01-12 08:59] VITALS: PULSE 69
[2019-01-12] MEDS: Gabapentin 100 MG Capsule PO ×2 (08:59→11:25)
[2019-01-12] MEDS: oxyCODONE 5 MG Tablet PO ×2 (08:59→14:43)
[2019-01-12] MEDS: Aspirin 81 MG TAB.CHEW PO (08:59)
[2019-01-12] MEDS: Multivitamins,Therapeutic Tablet 1 TABLET PO (08:59)
[2019-01-12] MEDS: Metoprolol Tartrate 25 MG Tablet PO (08:59)
[2019-01-12] MEDS: Pyridoxine HCl 100 MG Tablet PO (08:59)
[2019-01-12] MEDS: Losartan Potassium 50 MG Tablet PO (08:59)
--- NOTE | 2019-01-12 09:02 | PCM.PROGNOTE ---
Patient Problems: Active and Suspected Problems (Last Reviewed 12/11/18 @ 08:44 by Michelle Hoyos) Cellulitis of scrotum (Acute) Subjective: Patient was seen this morning for follow up on feet, relates doing much better, significantly less pain, and able to move more. He has no complaints of fever, chills, nausea or vomiting. - Physical Exam General: Alert, Oriented x3, Cooperative, No apparent distress Extremities: Capillary Refill Less than 3 Seconds, No Calf Tenderness, Peripheral Pulses Normal, - - There is still some residual edema to the 1st MTPJ and hallux left foot and mild to the right hallux IPJ, but there is significantly less pain and erythema almost resolved, there are no open lesions, no drainage, no fluctuance, no crepitus, no necrosis, no blistering present bilateral foot/ankle. ROM improved to the foot and toes bilateral. Vital Signs Temp Pulse Resp BP Pulse Ox 97.3 F L 69 18 142/72 H 100 01/12/19 02:08 01/12/19 08:59 01/12/19 06:55 01/12/19 02:08 01/12/19 02:08 Oxygen Delivery Method Room Air Weight: 89.358 kg Body Mass Index (BMI) 29.9 Finger Stick Blood Glucose 119 Intake and Output for Last 24 Hours 01/10/19 01/11/19 01/12/19 23:59 23:59 23:59 Intake Total 3605 / 4355 2997 / 3977 1863 / 1863 Output Total 2950 / 3570 2465 / 2665 700 / 700 Balance 655 / 785 532 / 1312 1163 / 1163 Microbiology Past 72 Hours 01/11/19 12:47 Gram Stain - Final Wound - Toe 01/09/19 15:45 Urine Culture - Final Urine, Clean Catch Culture exhibits no growth. Laboratory Tests Past 24 Hrs 01/11/19 12:47 Fluid Crystals MONOSODIUM URATE Fluid Crystal Source SYNOVIAL Fl Crystal Path Review Reviewed POC Glucose 01/12/19 01/12/19 01/11/19 06:36 02:25 21:19 POC Glucose 149 H 194 H 256 H 01/11/19 01/11/19 16:54 11:55 POC Glucose 135 H 167 H Medical Necessity - Tobacco Use Smoking Status: Never smoker Tobacco Use: Non-smoker Assessment/Plan All Active Problems (Last Reviewed 12/11/18 @ 08:44 by Michelle Hoyos) Cellulitis of scrotum (Acute) DVT (deep venous thrombosis) (Resolved) Pulmonary embolism (Resolved) Acute bronchitis (Resolved) Gout left 1st MTPJ, hallux IPJ, mild to right 1st toe IPJ s/p corticosteroid injection left 1st MTPJ and hallux IPJ - much improved today. Medical management of gout per medicine team. Patient to speak with dietitian for gout diet recommendations. Patient to follow up with me for foot check in 1-2 weeks as outpatient. Podiatry will sign off for now, please reconsult as needed.
[2019-01-12] MEDS: Insulin Lispro 100 UNIT/ML INSULN.PEN SC (11:24)
[2019-01-12 11:30] LABS: Bedside Glucose 225 mg/dL (70-110)
--- NOTE | 2019-01-12 13:36 | PCM.DC.URO ---
Discharge Diet: Light diet - advance as tolerated Discharge Activity: Return to Normal Activity Call your doctor if you observe: Fever of 101 or Higher Additional Instructions: resume all meds used levaquin instead of cipro Allergies/Adverse Reactions: Allergies simvastatin Adverse Reaction (Severe, Verified 01/09/19 10:24) Myalgias,severe Medications to take at Discharge Aspirin [Aspirin, Baby] 81 mg PO DAILY@0800 09/07/15 Montelukast [Singulair] 10 mg PO DAILY 09/07/15 Multivitamin [Daily Multiple Vitamin] 1 ea PO DAILY 09/07/15 Pyridoxine HCl [Vitamin B-6] 100 mg PO DAILY 09/07/15 Cholecalciferol (Vitamin D3) [Vitamin D3] 6,000 unit PO DAILY 08/12/16 Glucosamine/Chondroitin A/MSM [Xloiwgdwchw-Cwvjixaqern-ODQ Tb] 2 ea PO DAILY 08/12/16 coenzyme Q10 300 mg capsule 300 mg PO BID 07/19/17 magnesium 400 mg (as magnesium oxide) capsule 400 mg PO QDAY cap 07/19/17 ascorbic acid (vitamin C) 500 mg capsule 500 mg PO DAILY 10/24/17 budesonide-formoterol HFA 160 mcg-4.5 mcg/actuation aerosol inhaler 2 puff INHALATION Q12H 12/11/18 gabapentin 100 mg capsule 100 mg PO TID 12/11/18 metformin 500 mg tablet 500 mg PO BID tab 12/11/18 rosuvastatin 20 mg tablet 20 mg PO DAILY 12/11/18 tramadol 50 mg tablet 50 mg PO DAILY PRN tab 12/11/18 Metoprolol Tartrate [Lopressor (beta betty)] 25 mg PO BID 01/09/19 Tamsulosin HCl 0.4 mg PO QHS 01/09/19 Acetaminophen 2 tab PO TID PRN #1 tab 01/11/19 Apixaban [Eliquis] 2.5 mg PO BID #0 01/11/19 Colchicine 0.6 mg PO DAILY PRN #20 tab 01/11/19 Ibuprofen 4 tab PO TID PRN #1 tab 01/11/19 Losartan Potassium [Cozaar] 50 mg PO DAILY #30 tab 01/11/19 Omeprazole 20 mg PO DAILY #1 tab 01/11/19 levoFLOXacin tablet [Levaquin tablet] 750 mg PO DAILY #10 tab 01/11/19 The following prescriptions were given: Acetaminophen 2 tab PO TID PRN #1 tab PRN Reason: Pain Colchicine 0.6 mg PO DAILY PRN #20 tab PRN Reason: acute gout flare Transmission Status[facility] [address] Losartan Potassium [Cozaar] 50 mg PO DAILY #30 tab Transmission Status: Received by [facility] [place] [address] Ibuprofen 4 tab PO TID PRN #1 tab PRN Reason: Pain levoFLOXacin tablet [Levaquin tablet] 750 mg PO DAILY #10 tab Transmission Status: Received by [address] Omeprazole 20 mg PO DAILY #1 tab.rap. Primary Care Physician: Kami Costa DO [Primary Care Provider] - Test Results: Test results from this visit will be discussed in further detail at your follow-up appointment, if applicable. Please Follow Up With: Braxton Ken MD When: call for appt Please Follow Up With: Anthony Ho DPM When: call for appt
[2019-01-12 14:10] VITALS: PULSE 80; RESP 18
--- NOTE | 2019-01-12 14:21 | CASEMGMT ---
RN CM in to talk with patient at this time regarding discharge needs. Patient denies needs for HHC or additional DME. Patient voiced no questions or concerns regarding discharge planning.
[2019-01-12 14:33] VITALS: BP 122/63; PULSE 79; RESP 18; TEMP 36.7; O2SAT 96
--- NOTE | 2019-01-12 15:16 | PCM.DC.SUM ---
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) CABG 12/17/03, Left internal thoracic artery bypass to first diagonal of LAD, SVG to LAD & posterior descending of RCA, SVG to ramus intermedius of CX & then to 3rd marginal branch of cx; retirement use of drug (Chronic) DM2 (diabetes mellitus, type 2) (Chronic) Asthma (Chronic) Hospital Course and Treatment Operations: None Procedures: None Summary of Care Provided: The patient is a 68 year old male who was admitted to the hospital for severe right epididymoorchitis and failed outpatient therapy, he was admitted put on Rocephin, initially had responded but then continued to get worse so he was changed over to vancomycin and Levaquin. He was also seen by orthopedic surgery regarding a possible septic knee which turned out to be bursitis and he was also seen by podiatry for an inflamed and infected toe joint which was aspirated and became better after drainage and is on antibiotics. He will go home with Levaquin for 10 days he was given prescription by the hospitalist he will follow-up with Dr. ho podiatry and Dr. Ken with urology. - Physical Exam General: Alert, Oriented x3, Cooperative HEENT: Atraumatic, PERRLA, EOMI, Normocephalic Neck: Supple, No JVD, Negative Carotid Bruits Lungs: Clear to auscultation, Normal air movement Cardiovascular: Regular rate, No murmurs Abdomen: Bowel Sounds Present, Soft, Non Tender Extremities: No edema, Capillary Refill Less than 3 Seconds Skin: No rashes, No breakdown Musculoskeletal: No Tenderness to Palpation of Joints or Extremities Neurological: Cranial nerves II-XII grossly intact Psych/Mental Status: Normal Affect, Appropriate Vital Signs Temp Pulse Resp BP Pulse Ox 98.0 F 79 18 122/63 H 96 01/12/19 14:33 01/12/19 14:33 01/12/19 14:33 01/12/19 14:33 01/12/19 14:33 Oxygen Delivery Method Room Air Weight: 89.3 kg Body Mass Index (BMI) 29.9 Finger Stick Blood Glucose 119 Intake and Output for Last 24 Hours 01/10/19 01/11/19 01/12/19 23:59 23:59 23:59 Intake Total 3605 / 4355 2997 / 3977 2710 / 2710 Output Total 2950 / 3570 2465 / 2665 1300 / 1300 Balance 655 / 785 532 / 1312 1410 / 1410 Microbiology Past 72 Hours 01/11/19 12:47 Gram Stain - Final Wound - Toe Wound Culture - Preliminary No growth-Final to follow 01/09/19 15:45 Urine Culture - Final Urine, Clean Catch Culture exhibits no growth. POC Glucose 01/12/19 01/12/19 01/12/19 11:22 06:36 02:25 POC Glucose 225 H 149 H 194 H 01/11/19 01/11/19 21:19 16:54 POC Glucose 256 H 135 H Discharge Diet: Light diet - advance as tolerated Discharge Activity: Return to Normal Activity Call your doctor if you observe: Fever of 101 or Higher Home Medications: Medications to take at Discharge Aspirin [Aspirin, Baby] 81 mg PO DAILY@0800 09/07/15 Montelukast [Singulair] 10 mg PO DAILY 09/07/15 Multivitamin [Daily Multiple Vitamin] 1 ea PO DAILY 09/07/15 Pyridoxine HCl [Vitamin B-6] 100 mg PO DAILY 09/07/15 Cholecalciferol (Vitamin D3) [Vitamin D3] 6,000 unit PO DAILY 08/12/16 Glucosamine/Chondroitin A/MSM [Gmqdvosjllp-Sthwxzxkkwn-XLG Tb] 2 ea PO DAILY 08/12/16 coenzyme Q10 300 mg capsule 300 mg PO BID 07/19/17 magnesium 400 mg (as magnesium oxide) capsule 400 mg PO QDAY cap 07/19/17 ascorbic acid (vitamin C) 500 mg capsule 500 mg PO DAILY 10/24/17 budesonide-formoterol HFA 160 mcg-4.5 mcg/actuation aerosol inhaler 2 puff INHALATION Q12H 12/11/18 gabapentin 100 mg capsule 100 mg PO TID 12/11/18 metformin 500 mg tablet 500 mg PO BID tab 12/11/18 rosuvastatin 20 mg tablet 20 mg PO DAILY 12/11/18 tramadol 50 mg tablet 50 mg PO DAILY PRN tab 12/11/18 Metoprolol Tartrate [Lopressor (beta betty)] 25 mg PO BID 01/09/19 Tamsulosin HCl 0.4 mg PO QHS 01/09/19 Acetaminophen 2 tab PO TID PRN #1 tab 01/11/19 Apixaban [Eliquis] 2.5 mg PO BID #0 01/11/19 Colchicine 0.6 mg PO DAILY PRN #20 tab 01/11/19 Ibuprofen 4 tab PO TID PRN #1 tab 01/11/19 Losartan Potassium [Cozaar] 50 mg PO DAILY #30 tab 01/11/19 Omeprazole 20 mg PO DAILY #1 tab. 01/11/19 levoFLOXacin tablet [Levaquin tablet] 750 mg PO DAILY #10 tab 01/11/19 Following Prescrptions Were Given to Patient: Acetaminophen 2 tab PO TID PRN #1 tab PRN Reason: Pain Colchicine 0.6 mg PO DAILY PRN #20 tab PRN Reason: acute gout flare Transmission Status: Received by [address] Losartan Potassium [Cozaar] 50 mg PO DAILY #30 tab Transmission Status: Received by [address] Ibuprofen 4 tab PO TID PRN #1 tab PRN Reason: Pain levoFLOXacin tablet [Levaquin tablet] 750 mg PO DAILY #10 tab Transmission Status: Received by [address] Omeprazole 20 mg PO DAILY #1 tab.rap Primary Care Physician: Kami Costa DO [Primary Care Provider] - Please Follow Up With: Braxton Ken MD When: call for appt Please Follow Up With: Anthony Ho DPM When: call for appt Additional Instructions: resume all meds used levaquin instead of cipro Medical Necessity - Tobacco Use Smoking Status: Never smoker Tobacco Use: Non-smoker Meaningful Use Info Meaningful Use Diagnoses (Choose all that apply): None applicable - AMI Aspirin given w/in 24hrs of arrival?: Yes Code Visit ok
--- NOTE | 2019-01-15 15:32 | CASEMGMT ---
JULIO SHAW DC PHONE CALL DC DATE: 01/12/19 DC Disposition: Home Diagnosis on Discharge: Cellulits, PVC's, PAF LACE/STRATA: 05/02 Intro role of CM to patient via phone. Pt states he is improving, still has pain, but is managing at home. Pt did have question re: Cozaar on dc and discontinuation of Valsartan. JULIO SHAW did not see specifics addressed in physician charting. Advised pt to contact Dr. Costa's nurse and have PCP review. Pt states he will do this. No other questions re: care at home or medications. Appt with PCP made. Phuong PADILLAN RN ACM
== END 2019-01-12 15:02 | disposition home or self-care (01) | DRG 728 ==
LOC: ED 11:14 → MS3 12:09
PROVIDERS: Podiatrist; Admitting Provider Urology; Emergency Provider Emergency Medicine; Family Provider Internal Medicine; PCP Internal Medicine; Referring Provider Urology
DX: N45.3 Epididymo-orchitis (principal); N39.0 Urinary tract infection, site not specified; M10.062 Idiopathic gout, left knee; M10.9 Gout, unspecified; N40.1 Benign prostatic hyperplasia with lower urinary tract symptoms; R33.8 Other retention of urine; R35.0 Frequency of micturition; R35.1 Nocturia; I48.0 Paroxysmal atrial fibrillation; I49.3 Ventricular premature depolarization; I25.10 Atherosclerotic heart disease of native coronary artery without angina pectoris; E11.40 Type 2 diabetes mellitus with diabetic neuropathy, unspecified; I10 Essential (primary) hypertension; E78.5 Hyperlipidemia, unspecified; J45.909 Unspecified asthma, uncomplicated; M19.90 Unspecified osteoarthritis, unspecified site; E66.9 Obesity, unspecified; Z68.29 Body mass index [BMI] 29.0-29.9, adult; Z79.01 Long term (current) use of anticoagulants; Z79.51 Long term (current) use of inhaled steroids; Z79.84 Long term (current) use of oral hypoglycemic drugs; Z79.82 Long term (current) use of aspirin; Z79.899 Other long term (current) drug therapy; Z87.440 Personal history of urinary (tract) infections; Z86.711 Personal history of pulmonary embolism; Z86.718 Personal history of other venous thrombosis and embolism; Z95.1 Presence of aortocoronary bypass graft
CPT/HCPCS: 36415; 73560; 73630; 76870; 80048; 81001; 82962; 84550; 85025; 87040; 87070; 87075; 87086; 87088; 87186; 87205; 89060; 93971; 93976; 94640; 96365; 97802; 99284; 99285; J7030; A4216; J0696; J2405

== ENCOUNTER 2019-05-15 08:30 | Outpatient (RCR) | payer MEDICARE, OTHER, SELFPAY ==
[2018-12-11 08:36] VITALS: BMI 31.3
--- NOTE | 2019-02-09 08:43 | HP.PTEVAL_ITS ---
Patient's Visit Information LAUREN KELLY is a 68 year old M referred to Physical Therapy by Anthony Ho DPM with a diagnosis of Gait instability. Date of Evaluation: 02/09/19 Physical Therapist: Kieran Rojas PT, ATC - Visit Plan Frequency: 2-3x /Week Duration: 4-6 Weeks Plan: B LE strengthening (stu L ankle), core strengthening, balance and proprio, stair and gait training, nustep, and HEP - Subjective Findings: Pt reports his balance has been lacking for a while. Pt notes he has 2 hammertoes and has had gout in the past, and beleives this is what is part of his balance issues at this time. Pt reports he has had LBP for a long time. Pt reports he had L/S ablasions performed in April of 2018, and notes that may be causing some balance issues as well. Pt reports he has some altered sensation in his feet secondary to his LB issues. Pt reports he can only walk 1/4 of a mile until his L LE goes numb. Pt reports he has had 2 recent falls secondary to his L ankle rolling inward. Pt reports occasinal sleep difficulty secondary to LBP. Pt has had xrays which revealed degenerative changes in the LB. Pt reports he was hospitalized secondary to an illness 4 weeks ago and felt debilitated afterwards. Pt reports he feels weak in his legs, and notes significant difficulty with his stair negotiation at this time. - Objective Neuro: R L4 dermatone is hyposensitive to light touch. All other LE sensation is WNL to light touch. B patellar reflex= 1/3. MMT: L LE is grossly 4-/5 throughout. R LE is 4+/5 throughout. Gait: Pt ambulates with late pronation during stance phase. Pt also lack toe off. FGA: 20/30 - Balance Scores Functional Gait Assessment Score: 20 % Disability: 33.3400 - Goals Goal 1:: Increase LE strength x 1 grade to aid with stair negotiation Goal Time Frame: 4-6 Weeks Goal 2:: Increase FGA score x 3-5 pnts to aid with preventing future falls Goal Time Frame: 4-6 Weeks Goal 3:: I with HEP Goal Time Frame: 4-6 Weeks - Rehabilitation Potential Physical Therapy Diagnosis: Pt has gait instability, LE weakness, and a Hx of falls secondary to debilitation Rehabilitation Potential: Good - Anticipated Interventions Patient/Client Instruction: Educate patient on: Condition, Plan of Care For the Purpose of:: To improve self management Therapeutic Exercise to Include: Strength training, Endurance training, Balance training, Gait and locomotor training, Dynamic Lumbar Stabilization For the Purpose of:: To decrease pain, To improve muscle performance and motor function, To improve safety with gait Thank you for the opportunity to evaluate your patient. For Medicare and Medicare HMO plans, please review the plan of care and approve it. It will need to be FAXED BACK to us at [phone] for Medicare purposes. For Medicare only, by signing this I certify the plan of care. Please let me know if there are questions or concerns regarding this plan of care. Physician Signature: Date:
--- NOTE | 2019-04-20 07:51 | HP.PT.NRP ---
HP - Discharge Summary (1) - Patient Information LAUREN KELLY was seen in my office for initial evaluation on 02/09/19. The following Plan of Care was established for this patient: Initial Frequency: 2-3x /Week Initial Duration: 4-6 Weeks - Anticipated Interventions Patient/Client Instruction: Educate patient on: Condition, Plan of Care For the Purpose of:: To improve self management Therapeutic Exercise to Include: Strength training, Endurance training, Balance training, Gait and locomotor training, Dynamic Lumbar Stabilization For the Purpose of:: To decrease pain, To improve muscle performance and motor function, To improve safety with gait This patient was last seen in our office . Pertinent comments regarding their Physical therapy will appear below: Pt was treated for 8 PT visits for gait instability through the date of 03/15/19. Pt has not returned through todays date and is discontinued at this time. At this point I will be discontinuing this patient from physical therapy. I would be happy to see this patient again in the future if found appropriate by the physician. Thank you! Kieran Rojas, PT, ATC
--- NOTE | 2019-05-15 09:42 | HP.PTDCSUM ---
HP - PT D/C Summary It has been my pleasure to treat LAUREN KELLY under orders from Anthony Ho DPM, for the diagnosis of Gait instability for a total of 10 visit(s). Discharge Date: Please see the following information for a summary of their discharge status. - Subjective Subjective: No pain this date - Pain LBP Pain Intensity (Out of 10): 0 - Overall Improvement % Improvement: 70 - Objective Objective/Function: MMT: B LE's are grossly 5/5 throughout. FGA= . Pt is I with HEP. Rx goals achieved - Goals Goal 1:: Increase LE strength x 1 grade to aid with stair negotiation Goal 2:: Increase FGA score x 3-5 pnts to aid with preventing future falls Goal 3:: I with HEP - Plan Plan: Discharge - D/C Information If there are questions or concerns regarding this patient's physical therapy, please feel free to call me at [phone]. Thank you for the referral of this patient. Sincerely, Kieran Rojas, PT, ATC
== END 2019-05-15 10:17 | disposition home or self-care (01) ==
LOC: PT 08:30
PROVIDERS: Family Provider Internal Medicine; PCP Internal Medicine; Visit Provider Podiatrist
DX: R26.89 Other abnormalities of gait and mobility (principal)
CPT/HCPCS: 97110; 97161; 97530

== ENCOUNTER 2020-04-22 13:30 | Outpatient (RCR) | payer MEDICARE, OTHER, SELFPAY ==
--- NOTE | 2020-04-10 11:29 | HP.PTEVAL ---
Patient's Visit Information LAUREN KELLY is a 70 year old M referred to Physical Therapy by Dr. Kami Costa DO with a diagnosis of Poor balance and paraesthesia.. Date of Evaluation: 04/10/20 Physical Therapist: Tulio Peter, DPT, OCS, CSCS - Visit Plan Frequency: 2x /Week Duration: 2-4 Weeks Plan: Neurocom balance assessment and then 2-4 visits to teach HEP of FW weight shift, ankle strength especially R eversion, balance for vestibular and work to I. - Subjective Very unsteady over last 6 months, Doctor thinks it is from neuropathy maybe from back. Will have nerve conduction test. Has seen Dr. Eisenberg and recommended spinal fusion but he does not want those. Sent here for balance evaluation. No spinning, just feels unsteady. Has chronic LBP and into buttocks.L>R. Been the same for years. Gets to 7/10 in am and gets better as he moves more. Tylenol in morning gets him through the day. Sees Dr. Gorman for back injections which has helped and has had nerve burning. Most recently last April. May need another injection but did not want to go in with Covid. Sleep is OK, 6 hours at a time. Not employed, worked only two days since covid started due to covid at [employer]. Was changing furnace filters on roof at [employer] this week. Working around the house is OK but it is very slow and just has to be slow and careful due to unsteadiness. No regular exercises. Basic ADLs are OK. - Pain LBP Pain Intensity (Out of 10): 2 Pain Intensity Range: 0, 7 - Objective Walks with a slightly neuropathic gait pattern adn B slight foot slap. Trasnfers without UE easily. Steps require railing for safety, no PF strength o steps. reflexes 1/3 R patella, 2/3 L, achilles B 1/3. Sensation WNl to gross light touch legs but feet seem slight at deficit with walking pattern and comfort with FW weight shift. Coordination to reciprocal toe adn heel tapping is good. LB aROM ext slightly painful centrally adn min limited, SB mod limited, flexion full. HS and gastroc B tight.- slump, - SLR. Strength R ankle eversion 3/5, inversion 3+, DF 4- and L is 4- throughout. PF is 4- ut unable to heel raise on either foot or both. avoids FW weight shift. Knee strength 5/5 flexiona dn ext, hip strength 4-/5 abd and extension and 4- flexion. - Balance Scores Functional Gait Assessment Score: 26 % Disability: 13.3400 CATSIB Score (Max score 120 seconds): 102 - Goals Goal 1:: I approp HEP to minimize future problems with neuropathy and balance Goal Time Frame: 2-4 Weeks Goal 2:: Pt feel 50% more balance and able to forward weight shift comfortably. Goal Time Frame: 2-4 Weeks - Rehabilitation Potential Physical Therapy Diagnosis: Imbalance from neuropathy. Rehabilitation Potential: Fair - Anticipated Interventions Patient/Client Instruction: Educate patient on: Condition, Plan of Care For the Purpose of:: To increase tolerance to activity/condition/position, To decrease level of supervision to perform tasks, To improve gait and locomotor functions Therapeutic Exercise to Include: Strength training, Balance training, Gait and locomotor training For the Purpose of:: To improve muscle performance and motor function, To increase tolerance to activity/condition/position, To improve ability of physical actions for home/community/work/leisure, To improve gait and locomotor functions Thank you for the opportunity to evaluate your patient. For Medicare and Medicare HMO plans, please review the plan of care and approve it. It will need to be FAXED BACK to us at [phone] for Medicare purposes. For Medicare only, by signing this I certify the plan of care. Please let me know if there are questions or concerns regarding this plan of care. Physician Signature: Date:
--- NOTE | 2020-04-15 10:37 | HP.PTCOM_ITS ---
PT Communication Note 04/15/[address] Kami Costa, DO , Thank you for the referral of Shahzad to [facility] for Balance Assessment. I have enclosed a copy of the results for your review. In summation, he scored low on the vestibular portion of the Sensory Organization Test. He had a hard time with the backwards translations on the Motor Control Test. He score low on the forward weight shifting due to his hip weakness. With these results in mind, I plan to see him for 3-6 visits to teach HEP to improve these areas then follow up 6 weeks later for retesting to ensure progress. I have reviewed safety precautions based on his results with him. Please contact me if there are questions. Thank you for this referral. Sincerely, Tulio Peter DPT, OCS, CSCS Contact Information
--- NOTE | 2020-06-09 15:44 | HP.PTDCNRP_ITS ---
LAUREN KELLY was seen in my office for initial evaluation on 04/10/20. The following Plan of Care was established for this patient: Initial Frequency: 2x /Week Initial Duration: 2-4 Weeks Patient/Client Instruction: Educate patient on: Condition, Plan of Care For the Purpose of:: To increase tolerance to activity/condition/position, To decrease level of supervision to perform tasks, To improve gait and locomotor functions Therapeutic Exercise to Include: Strength training, Balance training, Gait and locomotor training For the Purpose of:: To improve muscle performance and motor function, To increase tolerance to activity/condition/position, To improve ability of physical actions for home/community/work/leisure, To improve gait and locomotor functions This patient was last seen in our office 04/22/20. Pertinent comments regarding their Physical therapy will appear below: Pt seen 4 visits of POC but cancelled last one and neglected to reschedule. At this point, it has been over 6 weeks adn I will discontinue due to nonattendance. At this point I will be discontinuing this patient from physical therapy. I would be happy to see this patient again in the future if found appropriate by t he physician. Thank you! Tulio Peter, DPT, OCS, CSCS
== END 2020-04-22 19:00 | disposition home or self-care (01) ==
LOC: PT 13:30
PROVIDERS: PCP Internal Medicine; Visit Provider Internal Medicine
DX: R26.81 Unsteadiness on feet (principal); R20.2 Paresthesia of skin
CPT/HCPCS: 97110; 97162; 97750

== ENCOUNTER → 2020-08-20 06:23 | Outpatient (CLI) | payer MEDICARE, OTHER, SELFPAY ==
--- NOTE | 2020-08-20 14:44 | NEURO ---
NCS and/or EMG Patient Report Ordering Doctor: Kami Costa DATE OF SERVICE: 08/20/20 Shahzad Woods presents for electrodiagnostic testing of the lower limb. He reports altered sensation in both feet with difficulty walking on uneven surfaces. He reports frequent cramping in the legs as well as lower back pain. Electrodiagnostic findings: Left peroneal motor nerve demonstrates prolonged distal latency with normal amplitude. Right peroneal motor nerve demonstrates prolonged distal latency with normal amplitude and reduced conduction velocity. There is reduced left tibial motor amplitude and conduction velocity. Reduced right tibial motor amplitude is noted with prolonged distal latency. Prolonged right tibial and right peroneal F waves. H reflex prolonged on the left side. Prolonged sural latency is noted bilaterally. Absent left superficial peroneal response. Plantar responses are within normal limits. On needle EMG, the right anterior tibialis demonstrates 1+ polyphasic motor units with increased amplitude and duration and a decreased recruitment pattern. Left tibialis anterior demonstrates motor units of increased amplitude and duration with decreased recruitment. Peroneus longus demonstrates motor units of increased amplitude and duration bilaterally. The gastrocnemius on the right side demonstrates 1+ polyphasic motor units with decreased recruitment. Electrodiagnostic assessment: This is an abnormal study in the lower limbs 1. Electrodiagnostic findings demonstrate peripheral polyneuropathy, with involvement of motor and sensory nerve fibers. This may be secondary to diabetes. 2. Electrodiagnostic findings suggestive of chronic denervation in the right L5 and S1 dermatomes. This may be due to a chronic radiculopathy as there is evidence of muscle atrophy in the right lower leg. If there are any further questions, please do not hesitate to contact me.
== END ==
PROVIDERS: PCP Internal Medicine; Referring Provider Internal Medicine; Visit Provider Internal Medicine
DX: R20.2 Paresthesia of skin (principal)
CPT/HCPCS: 95886; 95912

== ENCOUNTER → 2020-09-18 06:01 | Outpatient (CLI) | payer MEDICARE, OTHER, SELFPAY ==
[2020-09-04 14:33] VITALS: BMI 31.6
--- NOTE | 2020-09-18 09:21 | STRESSREP ---
Stress Test Report Date: 09-18-2020 Procedure: Pharmacologic stress nuclear imaging study Indications: Shortness of breath/dyspnea; CAD; CABG; PACs/PVCs; PAF; thromboembolic disease Consent: Per the patient Procedure: The patient underwent pharmacologic (Regadenoson 0.4mg ) evaluation with a peak heart rate of 100 beats per minute (67%predicted maximal heart rate) and a peak blood pressure of 150/82 mmHg. The baseline ECG demonstrated sinus rhythm. The peak pharmacologic ECG demonstrated no obvious ECG changes. There were occasional PVCs and an occasional ventricular couplet/triplet pretest with occasional PVCs during infusion and occasional PVCs during recovery. There was no complaint of chest discomfort during pharmacologic infusion or recovery. The examination was discontinued secondary to completion of protocol. Impression: 1. Pharmacologic (Regadenoson) evaluation 2. Peak pharmacologic ECG with no obvious ECG changes. 3. There were occasional PVCs and occasional ventricular couplets/triplets pretest with occasional PVCs during infusion and occasional PVCs during recovery. 4. Nuclear images pending Myocardial perfusion imaging study: Technique: The patient was injected with 11.9 millicuries of technetium 99m Cardiolite and subsequently rest SPECT Cardiolite nuclear imaging was obtained in the horizontal long, vertical long, and short axis views. The patient underwent pharmacologic (Regadenoson) evaluation with a peak heart rate of 100 beats per minute (67% percent predicted maximal heart rate) and a peak blood pressure of 150/82 mmHg. The patient was injected with 33.8 millicuries of technetium 99m Cardiolite and subsequently stress SPECT Cardiolite nuclear imaging was obtained in the horizontal long, vertical long, and short axis views. A gated Cardiolite study at peak stress was obtained. Interpretation: Rest and stress SPECT Cardiolite nuclear imaging status post realignment, normalization, and attenuation correction demonstrate a small area of subtle diminished tracer uptake near the apical segments without significant change between rest and stress. There is end systolic thickening and brightening. The gated Cardiolite study demonstrates myocardial thickening and inward wall motion. The reported LVEF is 68%. Impression: 1. Nonstress SPECT currently nuclear imaging demonstrate myocardial perfusion appearing compatible with physiologic apical thinning with no myocardial perfusion changes considered diagnostic for associated stress-induced myocardial ischemia. 2. The gated Cardiolite study reports an LVEF of 68%. This note was generated with ManyWhoation software. It may contain incorrect words, spelling, and punctuation that were not noted in checking the note before signing.
== END ==
PROVIDERS: PCP Internal Medicine; Referring Provider Internal Medicine Cardiovascular Disease; Visit Provider Internal Medicine Cardiovascular Disease
DX: I25.10 Atherosclerotic heart disease of native coronary artery without angina pectoris (principal); I49.1 Atrial premature depolarization; I49.3 Ventricular premature depolarization; I48.0 Paroxysmal atrial fibrillation; Z95.1 Presence of aortocoronary bypass graft
CPT/HCPCS: 78452; 93017; A9500; A4216; J2785

== ENCOUNTER → 2021-04-14 13:57 | Outpatient (CLI) | payer MEDICARE, OTHER, SELFPAY ==
--- NOTE | 2021-04-14 14:04 | RAD_ITS ---
STUDY: X-RAY CHEST REASON FOR EXAM: Male, 71 years old. COUGH TECHNIQUE: PA and lateral views of the chest. COMPARISON: Comparison is made with prior study dated 05/08/2008. FINDINGS: The lungs are clear and expanded. There is no demonstrated pleural abnormality. Sternal cerclage wires and vascular clips are present from a prior sternotomy and coronary artery bypass graft procedure (CABG). Borderline cardiomegaly. Normal mediastinum and rod. Normal visualized pulmonary arteries. There is atherosclerotic calcification of the aortic arch with tortuosity. There are diffuse degenerative changes of the visualized thoracic spine. Prior right rotator cuff surgery. There is no demonstrated abnormality of the visualized soft tissue structures of the upper abdomen. RAD/Chest PA and Lateral IMPRESSION: Stable examination. No acute abnormality is seen. Electronically Signed: Toni Duncan MD at 15:32 EST , Service support ,
[2021-04-14 17:46] LABS: D-Dimer Quantitative (DVT/PE) 0.28 FEU/ug/m (0.27-0.49)
[2021-04-14 18:50] LABS: BNP,B-Type NATRIURETIC PEPTIDE 256.3 pg/mL (0-100)
== END ==
PROVIDERS: PCP Internal Medicine; Referring Provider Nurse Practitioner
DX: R05.9 Cough, unspecified (principal); I13.0 Hypertensive heart and chronic kidney disease with heart failure and stage 1 through stage 4 chronic kidney disease, or unspecified chronic kidney disease; N18.1 Chronic kidney disease, stage 1; I50.9 Heart failure, unspecified
CPT/HCPCS: 36415; 71046; 83880; 85379

== ENCOUNTER → 2021-05-25 16:15 | Outpatient (CLI) | payer MEDICARE, OTHER, SELFPAY ==
--- NOTE | 2021-05-25 16:24 | RAD_ITS ---
INDICATION: COUGH EXAMINATION/TECHNIQUE: X-RAY - XR Chest 2 Views COMPARISON: 04/14/2021.. FINDINGS: LINES/DEVICES: Sternal wires are seen in position. Surgical clips visualized along the left heart border. LUNGS: Peribronchial cuffing bilateral hilar prominence is seen that demonstrates no significant change in comparison to the prior study. Bilateral hilar prominence visualized demonstrating no change. No evidence of focal infiltrate or consolidation, no evidence of pneumothorax or pleural effusion. No evidence of parenchymal lung masses seen. MEDIASTINUM AND CARDIOVASCULAR STRUCTURES: Cardiac silhouette is not enlarged. BONES AND SOFT TISSUES: Degenerative bone changes are seen. RAD/Chest PA and Lateral IMPRESSION: Peribronchial cuffing and bilateral hilar prominence but no evidence of focal lung infiltrate or consolidation. Correlate for acute bronchitis or airway disease. Electronically Signed: Herberth Whitmore MD at 17:02 EST Tel , Service support ,
== END ==
PROVIDERS: PCP Internal Medicine; Referring Provider Internal Medicine; Visit Provider Internal Medicine
DX: R05.9 Cough, unspecified (principal)
CPT/HCPCS: 71046

== ENCOUNTER 2021-07-23 13:02 | Outpatient (CLI) | payer MEDICARE, OTHER, SELFPAY ==
--- NOTE | 2021-07-23 13:05 | RAD_ITS ---
STUDY: X-RAY CHEST REASON FOR EXAM: Male, 71 years old. Fever and cough TECHNIQUE: PA and lateral views of the chest. COMPARISON: 05/25/2021 FINDINGS: The lungs are clear and expanded. There is no demonstrated pleural abnormality. Sternal cerclage wires and vascular clips are present from a prior sternotomy and coronary artery bypass graft procedure (CABG). Normal mediastinum and rod. Normal visualized pulmonary arteries. Normal visualized aortic arch and descending thoracic aorta. There are diffuse degenerative changes of the visualized thoracic spine. Evidence of previous right rotator cuff repair There is no demonstrated abnormality of the visualized soft tissue structures of the upper abdomen. RAD/Chest PA and Lateral IMPRESSION: No acute pulmonary process Electronically Signed: Billy Cedeno MD at 10:17 EST ,
== END 2021-07-23 23:59 | disposition home or self-care (01) ==
LOC: MTRAD 13:03
PROVIDERS: PCP Internal Medicine; Referring Provider Internal Medicine; Visit Provider Internal Medicine
DX: R05.9 Cough, unspecified (principal)
CPT/HCPCS: 71046

== ENCOUNTER → 2021-09-22 | Outpatient (CLI) | payer MEDICARE, OTHER, SELFPAY ==
--- NOTE | 2021-09-22 15:40 | RAD_ITS ---
STUDY: X-RAY CHEST REASON FOR EXAM: Male, 71 years old. ASTHMA TECHNIQUE: PA and lateral views of the chest. COMPARISON: Comparison is made with prior study dated 07/23/2021. FINDINGS: Stable mild increased markings at the lung bases suggestive of mild basilar scarring. There is no demonstrated pleural abnormality. Sternal cerclage wires and vascular clips are present from a prior sternotomy and coronary artery bypass graft procedure (CABG). Normal mediastinum and rod. Normal visualized pulmonary arteries. There is atherosclerotic calcification of the aortic arch with tortuosity. There are diffuse degenerative changes of the visualized thoracic spine. Normal visualized ribs, clavicles, and shoulders. There is no demonstrated abnormality of the visualized soft tissue structures of the upper abdomen. RAD/Chest PA and Lateral IMPRESSION: Stable mild increased markings at the lung bases suggestive of basilar scarring. Electronically Signed: Toni Duncan MD at 15:48 EDT ,
[2021-09-22 18:02] LABS: Absolute Lymphocyte Count 1.36 X10^3/uL (0.83-4.51); Basophil# 0.02 X10^3/uL; Basophil% 0.2 % (0-1); Eosinophil# 0.26 X10^3/uL; Eosinophils% 2.4 % (0-5); Hematocrit 43.5 % (40-54); Hemoglobin 14.4 g/dL (13.0-16.5); Lymphocyte # 1.36 X10^3/ul (0.83-4.51); Lymphocyte % 12.7 % (19-41); Mean Corp Hgb Conc 33.1 g/dL (32-36); Mean Corpuscular Volume 90.6 fL (80-94); Mean Platelet Vol. 10.3 fl (6.2-12.0); Monocyte# 0.93 X10^3/uL; Monocyte% 8.7 % (0-10); NRBC Flagged by Analyzer 0 % (0-5); Neutrophil # 8.03 X10^3/uL (2.7-7.7); Neutrophil % 75.3 % (47-70); Platelet Count 202 K/mm3 (150-450); RBC Distribution Width CV 14.5 % (11.6-14.6); RBC Distribution Width SD 48.2 fl (35.1-43.9); White Blood Count 10.7 K/mm3 (4.4-11.0)
== END | disposition home or self-care (01) ==
LOC: MTLAB 15:38
PROVIDERS: PCP Internal Medicine; Referring Provider Internal Medicine Pulmonary Disease; Visit Provider Internal Medicine Pulmonary Disease
DX: J45.50 Severe persistent asthma, uncomplicated (principal); R06.02 Shortness of breath
CPT/HCPCS: 36415; 71046; 83880; 85025

== ENCOUNTER → 2021-09-23 | Outpatient (CLI) | payer MEDICARE, OTHER, SELFPAY ==
--- NOTE | 2021-09-23 13:02 | ECHOCS_ITS ---
Reason For Study: CHF Procedure This was a 2D Doppler, Color Flow transthoracic echocardiogram. The study was technically difficult. Contrast injection was performed. Exam performed in department. Left Ventricle Based upon the 2D echocardiographic and contrast enhanced images obtained there appears to be global left ventricular hypokinesis/systolic dysfunction. The estimated ejection fraction is 40 %. Unable to assess diastolic dysfunction. Right Ventricle Normal RV size. Normal systolic function. Atria The left atrium is moderately enlarged. Normal right atrium. No doppler evidence for ASD. Mitral Valve There is mild mitral annular calcification. Extension of the mitral annular calcification onto the posterior mitral valve leaflet. Trivial mitral valve insufficiency. Tricuspid Valve Normal tricuspid valve. Mild tricuspid valve insufficiency. Right ventricular systolic pressure estimated to be 31 mmHg. Aortic Valve Trisinus/trileaflet aortic valve. Mild focal aortic valve calcification. Trivial aortic valve insufficiency. Pulmonic Valve The pulmonic valve is not well visualized. Trivial pulmonic valve insufficiency. Great Vessels The aortic root is not well visualized. Pericardium/Pleural No pericardial effusion. Medication 22 gauge I.V. with prn adaptor inserted into right arm. Diluted definity 2.5ml given slow IV push to enhance endocardial definition. MMode/2D Measurements & Calculations LA dimension: 4.9 cm LAV(MOD-bp): 78.1 ml LA A4 area: 24.7 cm2 LAV(MOD-bp) Indexed: 37.8 ml/m2 LAV(MOD-sp2): 83.8 ml LAV(MOD-sp4): 73.2 ml Doppler Measurements & Calculations MV E max jose luis: 140.4 cm/sec Ao V2 max: 136.3 cm/sec AI max jose luis: 314.3 cm/sec Ao max P.5 mmHg AI max P.5 mmHg AI dec slope: 78.1 cm/sec2 AI P1/2t: 1178 msec LV V1 max: 79.2 cm/sec PA V2 max: 127.1 cm/sec TR max jose luis: 266.2 cm/sec LV V1 max P.5 mmHg TR max P.4 mmHg ECHO/Echo Complete W/ Contrast Interpretation Summary The study was technically difficult. Contrast injection was performed. Based upon the 2D echocardiographic and contrast enhanced images obtained there appears to be global left ventricular hypokinesis/systolic dysfunction. The estimated ejection fraction is 40 %. The left atrium is moderately enlarged. There is mild mitral annular calcification. Extension of the mitral annular calcification onto the posterior mitral valve l eaflet. Trivial mitral valve insufficiency. Mild tricuspid valve insufficiency. Mild focal aortic valve calcification. Trivial aortic valve insufficiency. Trivial pulmonic valve insufficiency. Right ventricular systolic pressure estimated to be 31 mmHg. Unable to assess diastolic dysfunction. Ordering Physician: Steven Montanez Referring Physician: Kami Costa M.D. Performed By: William Parada RCS
== END | disposition home or self-care (01) ==
LOC: CVS 13:02
PROVIDERS: PCP Internal Medicine; Visit Provider Nurse Practitioner Family
DX: I51.89 Other ill-defined heart diseases (principal)
CPT/HCPCS: 93306; Q9957; A4216; C8929

== ENCOUNTER → 2021-10-01 | Outpatient (CLI) | payer MEDICARE, OTHER, SELFPAY ==
[2021-10-01 10:38] LABS: BNP,B-Type NATRIURETIC PEPTIDE 150.9 pg/mL (0-100)
[2021-10-01 10:46] LABS: Anion Gap 8 (5-15); BUN 33 mg/dL (7-18); BUN/Creat Ratio 31.1 RATIO (10-20); Calcium,Total 9.2 mg/dL (8.5-10.1); Chloride 102 mmol/L (98-107); Creatinine, Serum 1.06 mg/dL (0.70-1.30); EST Glomerular Filtration Rate 73 mL/min (>60); Est Glom Filt Rate - Afr Amer 88 mL/min (>60); Glucose 178 mg/dL (74-106); Potassium 3.7 mmol/L (3.5-5.1); Sodium Level 135 mmol/L (136-145)
== END | disposition home or self-care (01) ==
LOC: MTLAB 09:11
PROVIDERS: PCP Internal Medicine; Referring Provider Internal Medicine Cardiovascular Disease; Visit Provider Internal Medicine Cardiovascular Disease
DX: R06.2 Wheezing (principal); I48.0 Paroxysmal atrial fibrillation
CPT/HCPCS: 36415; 80048; 83880

== ENCOUNTER 2021-10-13 11:00 | Day surgery (SDC) | payer MEDICARE, OTHER, SELFPAY ==
[2021-10-12 10:17] VITALS: BMI 31.0
--- NOTE | 2021-10-12 13:12 | PCM.HP.BLA ---
History and Physical Date of Admission: 10/13/21 [facility] [address] [place] [address] [phone] OFFICE VISITDate of Service: 09/24/21 MR#:[id number]:[id number]: LAUREN KELLYRep #:[id number] Provider:Dr. Pedro Daniels MDAge/Sex: 71/M [facility]Signed [facility] History of Present Illness Details: LAUREN KELLY, is a 71 year old white male with a past medical history which is included underlying hyperlipidemia, hypertension, CAD, CABG, PAF, PVCs, as well as a history of thromboembolic disease/PE who presents today for outpatient cardiovascular follow-up with concerns of ongoing acute pulmonary disease and subsequent findings of atrial fibrillation. He states he has been working with his regulation supervisor recently based upon concerns of an exacerbation of his underlying pulmonary disease process. He has been on medical management which has included antibiotic therapy and corticosteroid therapy. He has had a chest x-ray performed as well which suggested an element of potential scarring. He states he is waiting to hear the official interpretation from his regulation supervisor. In the meantime he states that his symptoms have been his shortness of breath and dyspnea. He has not been complaining of chest discomfort suspicious for angina pectoris. There has been no evidence of near syncope or syncope. He states that he has been alerted by his wristwatch that his heart rate and rhythm has changed. He notes that there may be concerns of atrial fibrillation with intermittent elevated heart rates. He had laboratory work performed recently that did demonstrate an elevated BNP level. His level was slightly above 200. He had an ECG in the office today. He was noted to be in atrial fibrillation with variable ventricular response but with an overall ventricular rate less than 100 bpm with occasional PVCs. He also had based upon his ongoing concerns a transthoracic echocardiogram performed yesterday. The results are noted below. It did demonstrate his overall LV systolic function to be somewhat globally diminished with an estimated LVEF of 40%. There is been a question raised as to whether or not this could be related to a change in his underlying cardiac rate and rhythm. Of note he has continued his anticoagulant therapy for his thromboembolic disease history with his apixaban at 2.5 mg p.o. twice daily. He states there is been no interruption to this therapy. Intake Vital Signs 09/24/21 11:04 Height 5 ft 8 in Weight: 204 lb 5 oz BMI 31.0 BP 116/70 Blood Pressure Location Lt brachial Position Sitting Respiration 18 Pulse 80 Pulse Source Auscultation Intake Visit Reasons: needs sooner appt per [place] Supervisor Sheet Manufacturing Required: No Accompanied by: Self Allergies simvastatin Adverse Reaction (Severe, Verified 09/24/21 11:05) Myalgias,severe Medications aspirin 81 mg PO DAILY@0800 09/07/15 [History Confirmed 09/24/21] montelukast 10 mg PO DAILY 09/07/15 [History Confirmed 09/24/21] multivitamin 1 ea PO DAILY 09/07/15 [History Confirmed 09/24/21] pyridoxine (vitamin B6) 100 mg PO DAILY 09/07/15 [History Confirmed 09/24/21] cholecalciferol (vitamin D3) 6,000 unit PO DAILY 08/12/16 [History Confirmed 09/24/21] glucosamine trn-kcctpyewkq-bps 2 ea PO DAILY 08/12/16 [History Confirmed 09/24/21] coenzyme Q10 300 mg capsule 300 mg PO BID 07/19/17 [History Confirmed 09/24/21] magnesium oxide 400 mg PO QDAY cap 07/19/17 [History Confirmed 09/24/21] ascorbic acid (vitamin C) 500 mg capsule 500 mg PO DAILY 10/24/17 [History Confirmed 09/24/21] budesonide-formoterol HFA 160 mcg-4.5 mcg/actuation aerosol inhaler 2 puff INHALATION Q12H 12/11/18 [History Confirmed 09/24/21] acetaminophen 2 tab PO TID PRN #1 tab 01/11/19 [Rx Confirmed 09/24/21] metformin 500 mg tablet 500 mg PO TID tablet 09/04/20 [History Confirmed 09/24/21] omega-3 fatty acids 1,000 mg capsule 1,000 mg PO DAILY 09/04/20 [History Confirmed 09/24/21] metoprolol tartrate 25 mg tablet 25 mg PO BID #180 tab 07/16/21 [Rx Confirmed 09/24/21] azithromycin 250 mg tablet See Rx Instructions PO .COMPLEX #6 tab 09/12/21 [Rx Confirmed 09/24/21] methylprednisolone 4 mg tablets in a dose pack See Rx Instructions PO PER PKG DIR #21 tab 09/12/21 [Rx Confirmed 09/24/21] furosemide 40 mg tablet 40 mg PO DAILY #30 tab 09/23/21 [Rx Confirmed 09/24/21] apixaban 5 mg tablet 5 mg PO BID #180 tab 09/24/21 [Rx Confirmed 09/24/21] cetirizine 10 mg tablet 10 mg PO DAILY PRN 09/24/21 [History Confirmed 09/24/21] losartan 100 mg tablet 100 mg PO DAILY 09/24/21 [History Confirmed 09/24/21] PFSH Medical History Asthma Atherosclerotic heart disease of [place] coronary artery without angina pectoris Diabetes mellitus type II, controlled DM2 (diabetes mellitus, type 2) DVT (deep venous thrombosis) Essential hypertension [facility] use of drug HEVER on CPAP Paroxysmal atrial fibrillation Premature ventricular contractions Pulmonary embolism Pure hypercholesterolemia Surgical History H/O coronary artery bypass surgery (~12/17/03) S/P coronary artery bypass graft x 2 Family History Father Myocardial infarction CAD (coronary artery disease) Brother Hypertension Social History Smoking Status: Never smoker alcohol intake: current substance use type: does not use ROS Const Const: Positive for fatigue (slight); Negative for weakness, frequent falls, excessive sweating, weight gain or weight loss Eyes Eyes: Negative for transient loss of vision, blurry vision or change in vision ENT ENT: Positive for balance problems (slight); Negative for dizziness Cardio Chest Pain: No Palpitations: Yes (occasional) feels like its: irregular Edema: Left (LE chronic wears compression socks) Muscle aches with walking: None Resp Respiratory: Positive for SOB with activity (slight) and Cough (improving...occasional productive white sputum); Negative for SOB at rest GI GI: Negative vomiting or vomiting blood/hematemesis : Negative for hematuria Musc Musc: Positive for muscle aches/ myalgia (Bilat LE cramping during day and at night) and balance problems (slight); Negative for muscle weakness or joint pain Skin Skin: Negative non-healing lesions or rash Neuro Neuro: Negative for dizziness, lightheadedness, orthostatic symptoms, frequent falls, weakness or blurry vision [place] Hematologic/Lymphatic: Negative for easy bleeding Endo Endo: Positive for fatigue (slight); Negative for excessive sweating Psych Psych: Negative for anxiety or depression Allergy Allergy/Immunology: Negative for hives and Negative for rash Cardiology Exam Const Appearance: cooperative, healthy appearing, comfortable, no acute distress, well developed and well groomed Nutritional Appearance: well nourished and obese Orientation: alert, awake and oriented x3 Head Head: normal to inspection, normocephalic and atraumatic Ears: hearing grossly normal bilaterally Nose: external nose normal Face and Sinus: face symmetric Eyes General: appearance normal, both eyes and all related structures Eyelids: eyelids normal Conjunctivae: conjunctivae normal Pupils: PERRL EOM: EOM intact bilaterally Neck Neck: normal visual inspection, full ROM and no JVD Carotids: normal carotid upstroke Chest Chest inspection: normal inspection of the chest, symmetric chest movement and normal respiratory effort; Negative cough Auscultation: Bilateral: Rhonchi Cardio Rate: bradycardic Rhythm: irregularly irregular and ectopic beats Heart sounds: S1 normal and S2 normal; Negative rub, gallop or murmur GI GI: normal to inspection, soft, bowel sounds present and obese Neuro General: patient alert, patient awake, patient oriented x3 and moves all extremities Skin Skin: no rashes or lesions noted Extremities Pulses: Normal: Right Posterior Tibial Pulse, Left Posterior Tibial Pulse, Right Radial Pulse and Left Radial Pulse Lower Extremity Edema: None: Bilateral Psych Psychological: normal affect Supplemental Info Supplemental Information Transthoracic echocardiogram: 08-14-16 Interpretation Summary The estimated ejection fraction is 65 %. Stage 2 diastolic dysfunction. The left atrium is severely enlarged. Unable to estimate RV systolic pressure/pulmonary artery pressure due to technically difficult study. Trivial aortic valve insufficiency. The study was technically difficult. There is no comparison study available. Contrast injection was performed. Transthoracic echocardiogram: 09-23-2021 Interpretation Summary The study was technically difficult. Contrast injection was performed. Based upon the 2D echocardiographic and contrast enhanced images obtained there appears to be global left ventricular hypokinesis/systolic dysfunction. The estimated ejection fraction is 40 %. The left atrium is moderately enlarged. There is mild mitral annular calcification. Extension of the mitral annular calcification onto the posterior mitral valve leaflet. Trivial mitral valve insufficiency. Mild tricuspid valve insufficiency. Mild focal aortic valve calcification. Trivial aortic valve insufficiency. Trivial pulmonic valve insufficiency. Right ventricular systolic pressure estimated to be 31 mmHg. Unable to assess diastolic dysfunction. Stress Test Report Date: 09-18-2020 Procedure: Pharmacologic stress nuclear imaging study Indications: Shortness of breath/dyspnea; CAD; CABG; PACs/PVCs; PAF; thromboembolic disease Consent: Per the patient Procedure: The patient underwent pharmacologic (Regadenoson 0.4mg ) evaluation with a peak heart rate of 100 beats per minute (67%predicted maximal heart rate) and a peak blood pressure of 150/82 mmHg. The baseline ECG demonstrated sinus rhythm. The peak pharmacologic ECG demonstrated no obvious ECG changes. There were occasional PVCs and an occasional ventricular couplet/triplet pretest with occasional PVCs during infusion and occasional PVCs during recovery. There was no complaint of chest discomfort during pharmacologic infusion or recovery. The examination was discontinued secondary to completion of protocol. Impression: 1. Pharmacologic (Regadenoson) evaluation 2. Peak pharmacologic ECG with no obvious ECG changes. 3. There were occasional PVCs and occasional ventricular couplets/triplets pretest with occasional PVCs during infusion and occasional PVCs during recovery. 4. Nuclear images pending Myocardial perfusion imaging study: Technique: The patient was injected with 11.9 millicuries of technetium 99m Cardiolite and subsequently rest SPECT Cardiolite nuclear imaging was obtained in the horizontal long, vertical long, and short axis views. The patient underwent pharmacologic (Regadenoson) evaluation with a peak heart rate of 100 beats per minute (67% percent predicted maximal heart rate) and a peak blood pressure of 150/82 mmHg. The patient was injected with 33.8 millicuries of technetium 99m Cardiolite and subsequently stress SPECT Cardiolite nuclear imaging was obtained in the horizontal long, vertical long, and short axis views. A gated Cardiolite study at peak stress was obtained. Interpretation: Rest and stress SPECT Cardiolite nuclear imaging status post realignment, normalization, and attenuation correction demonstrate a small area of subtle diminished tracer uptake near the apical segments without significant change between rest and stress. There is end systolic thickening and brightening. The gated Cardiolite study demonstrates myocardial thickening and inward wall motion. The reported LVEF is 68%. Impression: 1. Nonstress SPECT currently nuclear imaging demonstrate myocardial perfusion appearing compatible with physiologic apical thinning with no myocardial perfusion changes considered diagnostic for associated stress-induced myocardial ischemia. 2. The gated Cardiolite study reports an LVEF of 68%. Cardiac catheterization: 11-10-17 CORONARY ANGIOGRAPHY DOMINANCE: Right Dominant LEFT HEART ASSESSMENT Left Ventricular Ejection Fraction: by LV Gram 45 % Depressed Left Ventricular systolic function LEFT MAIN: Moderate luminal irregularities up to 50% LEFT ANTERIOR DECENDING ARTERY: MID LAD: is occluded DIAGONAL 1: Proximal - long 70-80 % Stenosis CIRCUMFLEX ARTERY: PROX CIRC: is occluded RIGHT CORONARY ARTERY: Mild luminal irregularities MID RCA: 70 % Stenosis DISTAL RCA: diffuse 70-80 GRAFTS: YOUNG graft to the 1st Diagonal atretic Saphenous Vein graft to the RPDA is patent Saphenous Vein graft to the LAD is patent Sequential graft to the OM and Ramus is patent [id number]: [facility] YOUNG to the first diagonal branch of the LAD Individual SVG grafts to the: LAD; sequential SVG graft to the intermediate ramus and the third OM; SVG graft to the right PDA Labs: LDL Cholesterol 55 mg/dL (0-130) HDL Cholesterol 61 mg/dL (40-) Triglycerides 81 mg/dL (-199) VLDL Cholesterol 16 mg/dL (5-40) Diagnostics: Electrocardiogram Echocardiogram Stress Test NM Stress Test Cardiac Catheterization Chest X-Ray Venous Doppler Study Pulmonary: No Data to Display Assessment and Plan Assessment and Plan (1) Paroxysmal atrial fibrillation: Status: Chronic Orders: Orders: 12 Lead EKG performed by BMS Today Cardioversion Today Basic Metabolic Profile (BMP) 1 Week Plan - Dr. Pedro Daniels MD: He does have underlying atrial fibrillation. At the present time his rate appears to be reasonably well controlled thus he will continue his current rate limiting medication. He will continue anticoagulant therapy although his dose will be increased to 5 mg p.o. twice daily. He will have continuation of his antibiotic therapy and his corticosteroid therapy. If as his pulmonary process is treated his atrial dysrhythmia does not spontaneous return to sinus rhythm then he will be considered for an upcoming synchronized biphasic DC cardioversion once he has been on the higher dose anticoagulant therapy for period of time. (2) Premature ventricular contractions: Status: Chronic Orders: Orders: 12 Lead EKG performed by BMS Today Plan - Dr. Pedro Daniels MD: He does have underlying PVCs. He will continue his current medical management. (3) Atherosclerotic heart disease of [place] coronary artery without angina pectoris: Status: Chronic Qualifiers: [place] vs. transplanted heart: [place] heart Qualified Code(s): I25.10 - Atherosclerotic heart disease of [place] coronary artery without angina pectoris Plan - Dr. Pedro Daniels MD: He does have a history of underlying CAD. At the moment he does not appear to have ongoing angina pectoris. He will continue medical management. (4) H/O coronary artery bypass surgery: Status: Chronic Comment: CABG 12/17/03, Left internal thoracic artery bypass to first diagonal of LAD, SVG to LAD & posterior descending of RCA, SVG to ramus intermedius of CX & then to 3rd marginal branch of cx; Plan - Dr. Pedro Daniels MD: He has done revascularization therapy in the past. His most recent noninvasive and invasive studies are noted. At the moment he will continue medical therapy. (5) Pure hypercholesterolemia: Status: Chronic Plan - Dr. Pedro Daniels MD: He will continue risk factor monitor patient and medical therapy. (6) Essential hypertension: Status: Chronic Plan - Dr. Pedro Daniels MD: Pressure does need to be monitored for any changes over time. (7) Shortness of breath: Status: Acute Plan - Dr. Pedro Daniels MD: His shortness of breath may be a comment nation of factors which include his age, his weight, his underlying pulmonary disease process, his atrial fibrillation, and his diminished LV systolic function which again may be related to his change in his atrial rate and rhythm. At the present time he will continue medical management which has included the addition of diuretic therapy. He will have follow-up laboratory studies. As noted above if his atrial dysrhythmia does not spontaneous return to sinus rhythm as he proceeds with treatment of his underlying pulmonary disease process then he will be considered for upcoming denies biphasic DC cardioversion once his anticoagulation therapy is thought to be appropriate. Plan Details Other Medications: Changed: From: apixaban hold while taking ibuprofen 2.5 mg PO BID #0 0RF BLOOD CLOTS To: apixaban hold while taking ibuprofen 5 mg PO BID 180 tabs 3RF BLOOD CLOTS Other Orders: Orders: BNP,B-Type NATRIURETIC PEPTIDE Today R06.2 Additional Comments: The above was discussed and reviewed with the patient. He was agreeable to this approach. Thank you for allowing me to participate in the care of your patient. Please don't hesitate to call if any issues arise. This note was generated using a voice recognition system and there may be incorrect words, spelling or punctuation that were not noted when reviewing the office note prior to saving. Follow Up: 3 Months (PFM ) COVID (Procedure Consent) Procedure Criteria Procedure Criteria: Yes Elective The surgeon/proceduralist and patient have discussed in detail the risk of exposure to and/or potential harm posed by the COVID-19 virus with having a surgery/procedure at this time versus the risk of delaying the surgery/procedure. It is not possible to know either the risk of delaying the surgery or procedure or chance of getting an infection with perfect accuracy, but a joint decision was made between the patient and the surgeon/proceduralist to proceed at this time with the scheduled surgery/procedure as indicated on the consent form. Coding Level of Care Code Off vis,est,level 4 Diagnoses Paroxysmal atrial fibrillation I48.0 Premature ventricular contractions I49.3 Atherosclerotic heart disease of [place] coronary artery without angina pectoris I25.10 [place] vs. transplanted heart: [place] heart H/O coronary artery bypass surgery Z95.1 Pure hypercholesterolemia E78.00 Essential hypertension I10 Shortness of breath R06.02 Coding Level of Care Code Off vis,est,level 4 Diagnoses Paroxysmal atrial fibrillation I48.0 Premature ventricular contractions I49.3 Atherosclerotic heart disease of [place] coronary artery without angina pectoris I25.10 [place] vs. transplanted heart: [place] heart H/O coronary artery bypass surgery Z95.1 Pure hypercholesterolemia E78.00 Essential hypertension I10 Shortness of breath R06.02 09/24/21 1311<Electronically signed by Pedro Daniels MD>Date Pedro Daniels MD Cosigner Signature:Date (if applicable) CC: Dr. Kami Costa, DO ~ Assessment & Plan Addt'l Comments The patient's case was discussed and reviewed. Recommendation has been made to proceed with synchronized biphasic DC cardioversion once the patient had adequate anticoagulation therapy and then reassess his clinical status and objective findings. The procedure and risks of been discussed with the patient. He was agreeable to this approach. Addendum: 10-13-2021: This note was generated using a voice recognition system and there may be incorrect words, spelling or punctuation that were not noted when reviewing the office note prior to saving.
--- NOTE | 2021-10-13 12:55 | CARDIOVERS ---
Cardioversion Cardioversion: Date: 10-13-2021 Procedure: Synchronized Biphasic DC Cardioversion Indications: Atrial fibrillation Consent: Per the Patient Anesthesia: per Dr. Woodruff of pulmonology and critical care medicine with etomidate 6 mg IV push total Procedure: Synchronized Biphasic DC Cardioversion: 200 J x 1: Result: Sinus rhythm; occasional PVC Complications: no apparent complications This note was generated with [employer] software. It may contain incorrect words, spelling, and punctuation that were not noted in checking the note before signing.
--- NOTE | 2021-10-13 14:14 | PRO.PCM_ITS ---
Procedure Report Date of Procedure: 10/13/21 CONSCIOUS SEDATION REPORT DATE OF SERVICE: October 13, 2021 BRIEF HISTORY OF PRESENT ILLNESS: The patient is a 71-year-old male who presented to [facility] for an elective outpatient cardioversion due to underlying atrial fibrillation. The patient denied any prior anesthetic complications. His last surface echocardiogram demonstrated an ejection fraction of approximately 40%. He is systemically anticoagulated on Eliquis. The patient does report a history of obstructive sleep apnea, for which he regularly utilizes nocturnal CPAP therapy. PHYSICAL EXAMINATION: VITAL SIGNS: Reviewed and were acceptable. GENERAL: The patient is a male, in no apparent distress, speaking in full sentences. HEENT: Normocephalic, atraumatic. Mucous membranes are moist and pink. Good mouth opening noted. Trachea is midline. Good neck mobility. CHEST: S1, S2 irregularly irregular. No murmurs, rubs or gallops were noted. LUNGS: Clear to auscultation bilaterally without appreciable wheezes, rales or rhonchi. ABDOMEN: Soft, nontender, nondistended. Positive bowel sounds. EXTREMITIES: There is no clubbing, cyanosis or edema. ASA Class: II DESCRIPTION OF PROCEDURE: After confirmation of informed consent, the patient's anesthesia plan was reviewed in detail. Etomidate was chosen. Risks and benefits were reviewed and the patient agreed to proceed. At 1221, the patient was given 6 mg of etomidate. The patient achieved an appropriate level of sedation and was given a 200 joule synchronized cardioversion by Dr. Daniels at the bedside. This was successful in achieving normal sinus rhythm. The patient was monitored until 1232, at which time he reached his baseline mental status and function. The patient tolerated the procedure well. COMPLICATIONS: None ESTIMATED BLOOD LOSS: None RECOMMENDATIONS: Okay to recover in usual fashion. Procedures Pulmonary [id number]: [id number] Con Sedation
== END 2021-10-13 13:40 | disposition home or self-care (01) ==
LOC: CLSP 11:01
PROVIDERS: PCP Internal Medicine; Referring Provider Internal Medicine Cardiovascular Disease; Visit Provider Internal Medicine Cardiovascular Disease
DX: I48.0 Paroxysmal atrial fibrillation (principal); E11.9 Type 2 diabetes mellitus without complications; R06.02 Shortness of breath; I10 Essential (primary) hypertension; E78.00 Pure hypercholesterolemia, unspecified; I25.10 Atherosclerotic heart disease of native coronary artery without angina pectoris; Z79.84 Long term (current) use of oral hypoglycemic drugs; I49.3 Ventricular premature depolarization; E78.5 Hyperlipidemia, unspecified; G47.33 Obstructive sleep apnea (adult) (pediatric); Z79.82 Long term (current) use of aspirin; Z79.01 Long term (current) use of anticoagulants; Z86.711 Personal history of pulmonary embolism; Z95.1 Presence of aortocoronary bypass graft
CPT/HCPCS: 92960; 93005; J7030

== ENCOUNTER → 2021-10-29 | Outpatient (CLI) | payer MEDICARE, OTHER, SELFPAY ==
[2021-10-29 15:50] LABS: Hematocrit 40.9 % (40-54); Hemoglobin 13.4 g/dL (13.0-16.5); Mean Corp Hgb Conc 32.8 g/dL (32-36); Mean Corpuscular Hgb 30.2 pg (27.0-32.0); Mean Corpuscular Volume 92.1 fL (80-94); Mean Platelet Vol. 10.1 fl (6.2-12.0); Platelet Count 341 K/mm3 (150-450); RBC Distribution Width SD 47.6 fl (35.1-43.9); Red Blood Count 4.44 M/mm3 (4.6-6.2); White Blood Count 11.6 K/mm3 (4.4-11.0)
[2021-10-29 16:02] LABS: Anion Gap 8 (5-15); BUN 26 mg/dL (7-18); Calcium,Total 10.1 mg/dL (8.5-10.1); Chloride 108 mmol/L (98-107); Creatinine, Serum 1.04 mg/dL (0.70-1.30); EST Glomerular Filtration Rate 74 mL/min (>60); Est Glom Filt Rate - Afr Amer 90 mL/min (>60); Glucose 114 mg/dL (74-106); Potassium 4.1 mmol/L (3.5-5.1); Sodium Level 139 mmol/L (136-145)
== END | disposition home or self-care (01) ==
LOC: MTLAB 12:44
PROVIDERS: PCP Internal Medicine; Referring Provider Urology; Visit Provider Urology
DX: N45.3 Epididymo-orchitis (principal)
CPT/HCPCS: 36415; 80048; 85027

== ENCOUNTER → 2021-11-17 | Day surgery (SDC) | payer MEDICARE, OTHER, SELFPAY ==
[2021-11-13 12:17] VITALS: BMI 31.0
--- NOTE | 2021-11-16 11:29 | PCM.HP.BLA ---
History and Physical Date of Admission: 11/17/21 [facility] [address] [place], [place] [address] OFFICE VISIT Date of Service:? 11/05/21 MR#: [id number] Acct: [id number] Name:LAUREN NO Rep #: [id number] : 1950 Provider: ?ANNA Cifuentes Age/Sex:? 71/M [place] [facility] [place] Status: Signed HPI [facility] History of Present Illness Details: LAUREN KELLY, is a 71 year old white male that presents here today for a follow-up on his atrial fibrillation.? Patient was in the office on October 20 for a follow-up EKG from his previous cardioversion.? Unfortunately he did not maintain sinus rhythm.? We increased his metoprolol to 50 mg twice daily and we did start him on amiodarone.? ? He does have a history of coronary artery disease with previous bypass surgery in 2003, hypertension, hyperlipidemia, paroxysmal atrial fibrillation, PVCs, history of thromboembolic disease/PE.? He is SOB with exertion and fatigue. He does not have any chest pain.? He does not have any lightheadedness/dizziness.? He does not have any edema. Intake Vital Signs ? 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 Is patient in pain?: No Allergies simvastatin Adverse Reaction (Severe, Verified 11/05/21 11:32) Myalgias,severe Medications aspirin 81 mg PO DAILY@0800 09/07/15 [History Confirmed 11/05/21] montelukast 10 mg PO DAILY 09/07/15 [History Confirmed 10/12/21] multivitamin 1 ea PO DAILY 09/07/15 [History Confirmed 10/12/21] pyridoxine (vitamin B6) 100 mg PO DAILY 09/07/15 [History Confirmed 10/12/21] cholecalciferol (vitamin D3) 6,000 unit PO DAILY 08/12/16 [History Confirmed 10/12/21] glucosamine [id number] 2 ea PO DAILY 08/12/16 [History Confirmed 10/12/21] coenzyme Q10 300 mg capsule 300 mg PO BID 07/19/17 [History Confirmed 10/12/21] magnesium oxide 400 mg PO QDAY? cap 07/19/17 [History Confirmed 10/12/21] ascorbic acid (vitamin C) 500 mg capsule 500 mg PO DAILY 10/24/17 [History Confirmed 10/12/21] budesonide-formoterol HFA 160 mcg-4.5 mcg/actuation aerosol inhaler 2 puff INHALATION Q12H 12/11/18 [History Confirmed 10/12/21] acetaminophen 2 tab PO TID PRN #1 tab 01/11/19 [Rx Confirmed 10/12/21] metformin 500 mg tablet 500 mg PO TID? tablet 09/04/20 [History Confirmed 10/12/21] omega-3 fatty acids 1,000 mg capsule 1,000 mg PO DAILY 09/04/20 [History Confirmed 10/12/21] methylprednisolone 4 mg tablets in a dose pack See Rx Instructions PO PER PKG DIR #21 tab 09/12/21 [Rx Confirmed 10/12/21] apixaban 5 mg tablet 5 mg PO BID #180 tab 09/24/21 [Rx Confirmed 11/05/21] cetirizine 10 mg tablet 10 mg PO DAILY PRN 09/24/21 [History Confirmed 10/12/21] losartan 100 mg tablet 100 mg PO DAILY 09/24/21 [History Confirmed 10/12/21] amiodarone 200 mg tablet 200 mg PO DAILY? tab 11/05/21 [History Confirmed 11/05/21] furosemide 40 mg tablet 40 mg PO BID #180 tab 11/05/21 [Rx Confirmed 11/05/21] metoprolol tartrate 50 mg tablet 50 mg PO BID #180 tab 11/05/21 [Rx Confirmed 11/05/21] PFSH Medical History? Asthma Atherosclerotic heart disease of [place] coronary artery without angina pectoris Diabetes mellitus type II, controlled DM2 (diabetes mellitus, type 2) DVT (deep venous thrombosis) Essential hypertension lobsterman use of drug HEVER on CPAP Paroxysmal atrial fibrillation Persistent atrial fibrillation Premature ventricular contractions Pulmonary embolism Pure hypercholesterolemia Surgical History? H/O coronary artery bypass surgery (~12/17/03) History of cardioversion (10/13/21) S/P coronary artery bypass graft x 2 Family History? Father Myocardial infarction CAD (coronary artery disease)Brother Hypertension Social History? Smoking Status:? Never smoker alcohol intake:? current substance use type:? does not use ROS Const Const: Positive for fatigue; Negative for weakness, headache(s), frequent falls, excessive sweating, weight gain or weight loss Eyes Eyes: Negative for blind spots, loss of peripheral vision, transient loss of vision, blurry vision, change in vision or double vision ENT ENT: Negative for headache(s), dizziness, tinnitus, Nosebleed/epistaxis or balance problems Cardio Chest Pain: No Palpitations: No Edema: None Muscle aches with walking: None Resp Respiratory: Positive for SOB with activity; Negative for SOB at rest, SOB orthopnea\SOB lying down or Cough GI GI: Negative nausea, vomiting, heartburn, bloating, vomiting blood/hematemesis, bright, red blood in stools or black,tarry stools : Negative for hematuria Musc Musc: Negative for muscle aches/ myalgia, muscle weakness, joint pain or balance problems Skin Skin: Negative rash or wounds Neuro Neuro: Negative for dizziness, lightheadedness, near syncope, syncope, orthostatic symptoms, frequent falls, headache(s), weakness, confusion, memory loss, restless legs, blurry vision or double vision [place] Hematologic/Lymphatic: Negative for easy bleeding or easy bruising Endo Endo: Positive for fatigue; Negative for cold intolerance, heat intolerance or excessive sweating Psych Psych: Negative for anxiety or depression Allergy Allergy/Immunology: Negative for rash Cardiology Exam Const Appearance: cooperative, healthy appearing, comfortable, no acute distress, well developed and well groomed Nutritional Appearance: well nourished and obese Orientation: alert, awake and oriented x3 Head Head: normal to inspection, normocephalic and atraumatic Ears: hearing grossly normal bilaterally Nose: external nose normal Face and Sinus: face symmetric Eyes General: appearance normal, both eyes and all related structures Eyelids: eyelids normal Conjunctivae: conjunctivae normal Pupils: PERRL EOM: EOM intact bilaterally Neck Neck: normal visual inspection, full ROM and no JVD Carotids: normal carotid upstroke Chest Chest inspection: normal inspection of the chest, symmetric chest movement and normal respiratory effort; Negative cough Auscultation: Bilateral: Rhonchi Cardio Rate: bradycardic Rhythm: irregularly irregular and ectopic beats Heart sounds: S1 normal and S2 normal; Negative rub, gallop or murmur GI GI: normal to inspection, soft, bowel sounds present and obese Neuro General: patient alert, patient awake, patient oriented x3 and moves all extremities Skin Skin: no rashes or lesions noted Extremities Pulses: Normal: Right Posterior Tibial Pulse, Left Posterior Tibial Pulse, Right Radial Pulse and Left Radial Pulse Lower Extremity Edema: None: Bilateral Psych Psychological: normal affect Supplemental Info Supplemental Information Transthoracic echocardiogram: 08-14-16 Interpretation Summary The estimated ejection fraction is 65 %. Stage 2 diastolic dysfunction. The left atrium is severely enlarged. Unable to estimate RV systolic pressure/pulmonary artery pressure due to technically difficult study. Trivial aortic valve insufficiency. The study was technically difficult. There is no comparison study available. Contrast injection was performed. Transthoracic echocardiogram: 09-23-2021 Interpretation Summary The study was technically difficult. Contrast injection was performed. ? Based upon the 2D echocardiographic and contrast enhanced images obtained there appears to be global left ventricular hypokinesis/systolic dysfunction. The estimated ejection fraction is 40 %. The left atrium is moderately enlarged. There is mild mitral annular calcification. Extension of the mitral annular calcification onto the posterior mitral valve leaflet. Trivial mitral valve insufficiency. Mild tricuspid valve insufficiency. Mild focal aortic valve calcification. Trivial aortic valve insufficiency. Trivial pulmonic valve insufficiency. Right ventricular systolic pressure estimated to be 31 mmHg. Unable to assess diastolic dysfunction. Stress Test Report Date: 09-18-2020 Procedure: Pharmacologic stress nuclear imaging study Indications: Shortness of breath/dyspnea; CAD; CABG; PACs/PVCs; PAF; thromboembolic disease Consent: Per the patient Procedure: The patient underwent pharmacologic (Regadenoson 0.4mg ) evaluation with a peak heart rate of 100 beats per minute (67%predicted maximal heart rate) and a peak blood pressure of 150/82 mmHg. The baseline ECG demonstrated sinus rhythm.? The peak pharmacologic ECG demonstrated no obvious ECG changes. There were occasional PVCs and an occasional ventricular couplet/triplet pretest with occasional PVCs during infusion and occasional PVCs during recovery. There was no complaint of chest discomfort during pharmacologic infusion or recovery. The examination was discontinued secondary to completion of protocol. Impression: 1.? Pharmacologic (Regadenoson) evaluation 2.? Peak pharmacologic ECG with no obvious ECG changes. 3.? There were occasional PVCs and occasional ventricular couplets/triplets pretest with occasional PVCs during infusion and occasional PVCs during recovery. 4.? Nuclear images pending Myocardial perfusion imaging study: Technique: The patient was injected with 11.9 millicuries of technetium 99m Cardiolite and subsequently rest SPECT Cardiolite nuclear imaging was obtained in the horizontal long, vertical long, and short axis views. The patient underwent pharmacologic (Regadenoson) evaluation with a peak heart rate of 100 beats per minute (67% percent predicted maximal heart rate) and a peak blood pressure of 150/82 mmHg. The patient was injected with 33.8 millicuries of technetium 99m Cardiolite and subsequently stress SPECT Cardiolite nuclear imaging was obtained in the horizontal long, vertical long, and short axis views.? A gated Cardiolite study at peak stress was obtained. Interpretation: Rest and stress SPECT Cardiolite nuclear imaging status post realignment, normalization, and attenuation correction demonstrate a small area of subtle diminished tracer uptake near the apical segments without significant change between rest and stress.? There is end systolic thickening and brightening.? The gated Cardiolite study demonstrates myocardial thickening and inward wall motion.? The reported LVEF is 68%. Impression: 1.? Nonstress SPECT currently nuclear imaging demonstrate myocardial perfusion appearing compatible with physiologic apical thinning with no myocardial perfusion changes considered diagnostic for associated stress-induced myocardial ischemia. 2.? The gated Cardiolite study reports an LVEF of 68%. Cardiac catheterization: 11-10-17 CORONARY ANGIOGRAPHY DOMINANCE:? Right Dominant LEFT HEART ASSESSMENT Left Ventricular Ejection Fraction: by LV Gram 45 % Depressed Left Ventricular systolic function LEFT MAIN: Moderate luminal irregularities up to 50% LEFT ANTERIOR DECENDING ARTERY: MID LAD: is occluded DIAGONAL 1: Proximal - long 70-80 % Stenosis CIRCUMFLEX ARTERY: PROX CIRC: is occluded RIGHT CORONARY ARTERY: Mild luminal irregularities MID RCA: 70 % Stenosis DISTAL RCA: diffuse 70-80 GRAFTS: YOUNG graft to the 1st Diagonal atretic Saphenous Vein graft to the RPDA is patent Saphenous Vein graft to the LAD is patent Sequential graft to the OM and Ramus is patent [id number]: [facility] YOUNG to the first diagonal branch of the LAD Individual SVG grafts to the: LAD; sequential SVG graft to the intermediate ramus and the third OM; SVG graft to the right PDA Labs: ?? ? No Data to Display Diagnostics: ?? ? Electrocardiogram ? Echocardiogram ? Chest X-Ray ? Pulmonary: ?? ? No Data to Display Assessment and Plan Assessment and Plan (1) Paroxysmal atrial fibrillation: ?Status:?Chronic ?Plan - Michelle CASTILLO, PA: Unfortunately he did not maintain SR.? He was started on amiodarone.? Will decrease this to once a day.? For now he will continue with metoprolol at 50 mg BID.? Will increase his lasix to 40 mg BID.? Suspect that he does have some diastolic dysfunction. Will plan for a second DCCV on amiodarone.? If he does not maintain SR he may need referred to EP for possible ablation. (2) Atherosclerotic heart disease of [place] coronary artery without angina pectoris: ?Status:?Chronic ?Qualifiers: ?[place] vs. transplanted heart:?[place] heart? Qualified Code(s):?I25.10 - Atherosclerotic heart disease of [place] coronary artery without angina pectoris ?Plan - Michelle CASTILLO PA: Stable, from a cardiac standpoint patient does not have any symptoms of angina.? We recommend that they continue with current aggressive medical management and risk factor modification. He will continue with his ASA, Losartan, Metoprolol. (3) Essential hypertension: ?Status:?Chronic ?Plan - Michelle CASTILLO PA: Pt will continue with is current blood pressure medications,? they are controlled. Plan Details Other Medications: ?Changed: ? From: amiodarone ?200 mg twice a day for 7 days then 200 mg once a day 60 tabs 3RF ? ? ? To: amiodarone 200 mg? PO DAILY ? ? ? From: furosemide 40 mg? PO DAILY 30 tabs 11RF ? ? ? To: furosemide 40 mg? PO BID 180 tabs 3RF ? ? ? From: metoprolol tartrate 50 mg? PO BID HEART ? ? ? To: metoprolol tartrate 50 mg? PO BID 180 tabs 3RF HEART ? ? Other Orders: ?Orders: ? 12 Lead EKG performed by BMS Today I48.19 ? Additional Comments: The above was discussed and reviewed with the patient.? He was agreeable to this approach. Thank you for allowing me to participate in the care of your patient.? Please don't hesitate to call if any issues arise. This note was generated using a voice recognition system and there may be incorrect words, spelling or punctuation that were not noted when reviewing the office note prior to saving. Follow Up: ? ? 11/05/21?(keep as is) Coding Level of Care Code Off vis,est,level 3 Diagnoses Paroxysmal atrial fibrillation? I48.0 Atherosclerotic heart disease of [place] coronary artery without angina pectoris? I25.10 ? ? ? [place] vs. transplanted heart: [place] heart Essential hypertension? I10 Coding Level of Care Code Off vis,est,level 3 Diagnoses Paroxysmal atrial fibrillation? I48.0 Atherosclerotic heart disease of [place] coronary artery without angina pectoris? I25.10 ? ? ? [place] vs. transplanted heart: [place] heart Essential hypertension? I10 11/05/21 1357 <Electronically signed by Michelle CASTILLO> Date Michelle CASTILLO Cosigner Signature: Date (if applicable) CC:? Dr. Kami Costa, DO ~ Assessment & Plan Addt'l Comments Addendum: The patient has had recurrence of his atrial fibrillation. He has been placed on additional medical therapy with antiarrhythmic therapy with amiodarone. He presents back for another attempt at regaining sinus rhythm with synchronized biphasic DC cardioversion. The procedure and risks of been discussed with him. He was agreeable to this approach. I have re-examined the patient. There are no clinical changes since date of exam This note was generated using a voice recognition system and there may be incorrect words, spelling or punctuation that were not noted when reviewing the office note prior to saving.
== END | disposition home or self-care (01) ==
LOC: CLSP 11:04
PROVIDERS: PCP Internal Medicine; Referring Provider Internal Medicine Cardiovascular Disease; Visit Provider Internal Medicine Cardiovascular Disease
DX: I48.0 Paroxysmal atrial fibrillation (principal); E11.9 Type 2 diabetes mellitus without complications; E78.00 Pure hypercholesterolemia, unspecified; I10 Essential (primary) hypertension; I25.10 Atherosclerotic heart disease of native coronary artery without angina pectoris; I49.3 Ventricular premature depolarization; G47.33 Obstructive sleep apnea (adult) (pediatric); E66.9 Obesity, unspecified; Z68.31 Body mass index [BMI] 31.0-31.9, adult; Z95.1 Presence of aortocoronary bypass graft; Z79.82 Long term (current) use of aspirin; Z79.84 Long term (current) use of oral hypoglycemic drugs; Z79.899 Other long term (current) drug therapy
CPT/HCPCS: 93005

== ENCOUNTER → 2021-11-23 | Outpatient (CLI) | payer MEDICARE, OTHER, SELFPAY ==
[2021-11-23 10:54] LABS: Hematocrit 42.1 % (40-54); Hemoglobin 13.9 g/dL (13.0-16.5); Mean Corpuscular Hgb 29.8 pg (27.0-32.0); Mean Corpuscular Volume 90.1 fL (80-94); Mean Platelet Vol. 10.7 fl (6.2-12.0); Platelet Count 208 K/mm3 (150-450); RBC Distribution Width CV 14.4 % (11.6-14.6); RBC Distribution Width SD 46.8 fl (35.1-43.9); Red Blood Count 4.67 M/mm3 (4.6-6.2); White Blood Count 6.7 K/mm3 (4.4-11.0)
[2021-11-23 11:26] LABS: Anion Gap 9 (5-15); BUN 29 mg/dL (7-18); BUN/Creat Ratio 31.9 RATIO (10-20); Calcium,Total 9.7 mg/dL (8.5-10.1); Chloride 109 mmol/L (98-107); Creatinine, Serum 0.91 mg/dL (0.70-1.30); EST Glomerular Filtration Rate 87 mL/min (>60); Est Glom Filt Rate - Afr Amer 105 mL/min (>60); Glucose 183 mg/dL (74-106); Potassium 4.1 mmol/L (3.5-5.1); Sodium Level 140 mmol/L (136-145)
== END | disposition home or self-care (01) ==
LOC: LAB 10:22
PROVIDERS: PCP Internal Medicine; Visit Provider Urology
DX: N45.3 Epididymo-orchitis (principal)
CPT/HCPCS: 36415; 80048; 85027

== ENCOUNTER → 2022-01-13 | Outpatient (CLI) | payer MEDICARE, OTHER, SELFPAY ==
[2022-01-13 15:55] LABS: AST(SGOT) 21 U/L (15-37); Alanine Aminotransfer ALT/SGPT 32 U/L (16-61); Albumin, Serum 4.3 g/dL (3.2-5.0); Alkaline Phosphatase 81 U/L (45-117); Bilirubin, Direct 0.23 mg/dL (0.00-0.30); Globulin 3.4 g/dL (2.2-4.2); Protein, Total 7.7 g/dL (6.4-8.2); T4 Free Direct 1.18 ng/dL (0.76-1.46); Thyroid Stim Hormone (TSH) 1.46 uIU/mL (0.358-3.74)
== END | disposition home or self-care (01) ==
LOC: MTLAB 13:35
PROVIDERS: PCP Internal Medicine; Referring Provider Nurse Practitioner Family; Visit Provider Nurse Practitioner Family
DX: I48.0 Paroxysmal atrial fibrillation (principal); Z79.899 Other long term (current) drug therapy
CPT/HCPCS: 36415; 80076; 84439; 84443

== ENCOUNTER → 2022-01-15 | Outpatient (CLI) | payer MEDICARE, OTHER, SELFPAY ==
--- NOTE | 2022-01-15 14:03 | VDLE_ITS ---
Reason For Study: LLE PAIN Procedure LEFT This is a venous duplex using B-mode, color GSV has been harvested. flow and spectral Doppler. CFV is compressible, spontaneous, phasic, Exam performed in department. competent, and demonstrates normal The exam was diagnostic. augmentation. A preliminary report was called and/or faxed FV is compressible, spontaneous, phasic, to Dr. Feliciano @ [phone] @ 2:35 pm. competent and demonstrates normal augmentation. POP V is compressible, spontaneous, phasic, competent and demonstrates normal augmentation. T/P Trunk is compressible. PTV is compressible. LT PerV is compressible. VL/Venous Duplex US, Unilateral Interpretation Summary There is no evidence of left lower extremity deep vein thrombosis. Surgically h arvested left great saphenous vein Ordering Physician: Veena Feliciano Referring Physician: Kami Costa Performed By: Lexi Shahid, ROSA ELENA, RVT
== END | disposition home or self-care (01) ==
LOC: CVS 14:01
PROVIDERS: PCP Internal Medicine; Visit Provider Internal Medicine
DX: M79.662 Pain in left lower leg (principal)
CPT/HCPCS: 93971

== ENCOUNTER → 2022-04-06 | Outpatient (CLI) | payer MEDICARE, OTHER, SELFPAY ==
--- NOTE | 2022-04-06 14:22 | ECHOL_ITS ---
Reason For Study: S/P CABG Procedure This was a limited 2D transthoracic echocardiogram. The study was technically difficult. Limited views were obtained. Exam performed in department. Left Ventricle Normal LV size. Left ventricular systolic function is normal. The estimated ejection fraction is 60 %. Post operative septal motion. Unable to assess diastolic dysfunction. No regional wall motion abnormalities noted. Right Ventricle Normal RV size. Normal systolic function. Atria The left atrium is moderately enlarged. Normal right atrium. No doppler evidence for ASD. Mitral Valve There is mild mitral annular calcification. Extension of the mitral annular calcification onto the base of the posterior mitral valve leaflet. Mild focal mitral valve calcification of the anterior leaflet. Tricuspid Valve Normal tricuspid valve. Aortic Valve Trisinus/trileaflet aortic valve. Mild focal aortic valve calcification. Pulmonic Valve The pulmonic valve is not well visualized. Great Vessels The aortic root is not well visualized. Pericardium/Pleural No pericardial effusion. MMode/2D Measurements & Calculations LVIDd: 5.9 cm IVSd: 1.0 cm LAV(MOD-bp): 89.5 ml LVIDs: 3.9 cm LVPWd: 1.0 cm LAV(MOD-bp) Indexed: 45.0 ml/m2 RVDd: 3.0 cm FS: 32.8 % LAV(MOD-sp2): 86.3 ml LAV(MOD-sp4): 92.1 ml SV(MOD-sp4): 53.3 ml LVAd ap4: 26.4 cm2 LVAd ap2: 27.2 cm2 LVLd ap4: 7.0 cm LVLd ap2: 7.4 cm EDV(MOD-sp4): 84.7 ml EDV(MOD-sp2): 86.6 ml EDV(sp4-el): 84.4 ml EDV(sp2-el): 84.6 ml LVAs ap4: 14.2 cm2 LVAs ap2: 16.3 cm2 LVLs ap4: 5.8 cm LVLs ap2: 6.3 cm ESV(MOD-sp4): 31.4 ml ESV(MOD-sp2): 37.4 ml ESV(sp4-el): 29.7 ml ESV(sp2-el): 35.9 ml EF(MOD-sp4): 63.0 % EF(MOD-sp2): 56.9 % EF(sp4-el): 64.8 % SV(MOD-sp2): 49.3 ml SV(sp4-el): 54.7 ml LA A4 area: 26.0 cm2 LA dimension(2D): 5.1 cm RA A4 area: 14.9 cm2 ECHO/Echo, Limited Study Interpretation Summary The study was technically difficult. Limited views were obtained. Left ventricular systolic function is normal. The estimated ejection fraction is 60 %. Post operative septal motion. The left atrium is moderately enlarged. There is mild mitral annular calcification. Extension of the mitral annular calcification onto the base of the posterior mi tral valve leaflet. Mild focal mitral valve calcification of the anterior leaflet. Mild focal aortic valve calcification. Unable to assess diastolic dysfunction. Ordering Physician: Pedro Daniels Referring Physician: Veena Feliciano Performed By: Lexi Shahid, ROSA ELENA, RVT
== END | disposition home or self-care (01) ==
LOC: CVS 13:52
PROVIDERS: PCP Internal Medicine; Visit Provider Internal Medicine Cardiovascular Disease
DX: I11.0 Hypertensive heart disease with heart failure (principal); I50.9 Heart failure, unspecified; I48.0 Paroxysmal atrial fibrillation; I25.10 Atherosclerotic heart disease of native coronary artery without angina pectoris; E78.00 Pure hypercholesterolemia, unspecified; Z79.899 Other long term (current) drug therapy; Z95.1 Presence of aortocoronary bypass graft
CPT/HCPCS: 93308

== ENCOUNTER → 2022-04-16 | Outpatient (CLI) | payer MEDICARE, OTHER, SELFPAY ==
--- NOTE | 2022-04-16 09:28 | US_ITS ---
STUDY: ABDOMINAL ULTRASOUND - RIGHT UPPER QUADRANT REASON FOR VISIT: Male, 72 years old Fatty liver TECHNIQUE: Ultrasound evaluation of the right upper quadrant was performed with real-time and static styles-scale imaging. TECHNICAL QUALITY: Adequate. COMPARISON: Comparison is made with prior study dated 01/23/2014. FINDINGS: Liver: The liver measures 17.7 cm. There is increased echogenicity consistent with fatty infiltration. The bile ducts are within normal limits. There is hepatic color flow. The direction of portal flow is hepatopetal. There is no demonstrated mass lesion. Gallbladder: Normal distended gallbladder. The gallbladder wall measures 2.1 mm. There is a negative sonographic Snider''s sign. There is no pericholecystic fluid. There are no gallstones. Common Bile Duct (C.B.D.): The common bile duct measures 3.8 mm. Pancreas: Normal size of the head, body and tail of the pancreas. There is increased echogenicity of the pancreas. There is no demonstrated pancreatic mass or cyst. Right Kidney: Normal size of the right kidney. The right kidney measures 11.7 cm x 5.5 cm x 5.7 cm. Normal renal cortex. The right cortex measures 1.8 cm. There is no demonstrated renal mass or cyst. There is no right hydronephrosis. US/Abdomen Limited IMPRESSION: Fatty infiltration of the liver. Electronically Signed: Toni Duncan MD at 14:44 EST ,
== END | disposition home or self-care (01) ==
LOC: US 09:27
PROVIDERS: PCP Internal Medicine; Visit Provider Internal Medicine
DX: K76.0 Fatty (change of) liver, not elsewhere classified (principal)
CPT/HCPCS: 76705

== ENCOUNTER → 2022-05-13 | Outpatient (CLI) | payer MEDICARE, OTHER, SELFPAY ==
--- NOTE | 2022-05-13 12:51 | RAD_ITS ---
STUDY: X-RAY - PELVIS AND LEFT HIP REASON FOR EXAM: Male, 72 years old. HIP PAIN TECHNIQUE: 3 views of the pelvis and hip. COMPARISON: None. FINDINGS: There is a non-specific bowel gas pattern. Normal visualized soft tissue structures. Normal bilateral iliac wings, sacroiliac joints and visualized sacrum. Normal bilateral superior and inferior pubic rami. Normal pubic symphysis. Normal bilateral ischial tuberosities. Normal visualized femoral head. Normal acetabulum. Normal hip joint. RAD/HIP, UNI W/ Pelvis 2-3 Views IMPRESSION: Normal x-ray examination of the pelvis and hip. Electronically Signed: Kenyon Malone MD at 16:55 EST ,
== END | disposition home or self-care (01) ==
LOC: MTRAD 12:49
PROVIDERS: PCP Internal Medicine; Referring Provider Nurse Practitioner Family; Visit Provider Nurse Practitioner Family
DX: M70.72 Other bursitis of hip, left hip (principal)
CPT/HCPCS: 73502

== ENCOUNTER → 2022-05-19 | Outpatient (CLI) | payer MEDICARE, OTHER, SELFPAY ==
--- NOTE | 2022-05-19 10:01 | CDU_ITS ---
Reason For Study: ABNORMAL BFS Rt. Velocities/BP Lt. Velocities/BP Prox CCA 110.0/16.7 cm/sec. Prox CCA 168.2/29.9 cm/sec. Mid CCA 114.9/21.6 cm/sec. Mid CCA 135.2/21.1 cm/sec. Dist CCA 127.1/28.5 cm/sec. Dist CCA 152.8/27.7 cm/sec. Prox ICA 168.2/36.4 cm/sec. Prox ICA 96.9/22.0 cm/sec. Mid ICA 116.7/34.5 cm/sec. Mid ICA 152.7/30.3 cm/sec. Dist ICA 94.8/23.6 cm/sec. Dist ICA 101.6/23.0 cm/sec. Rt. ICA/CCA = 168.2/114.9=1.5. Lt. ICA/CCA = 152.7/135.2=1.13. Prox ECA 351.5/37.7 cm/sec. Prox ECA 148.4/18.9 cm/sec. Rt. Vert. 52.6/8.7 cm/sec. Lt. Vert. 73.5/17.5 cm/sec. Right Extracranial There is homogeneous, smooth atherosclerotic plaque noted in the right common carotid artery. There is heterogeneous, irregular atherosclerotic plaque noted in the right internal carotid artery. There is heterogeneous, irregular atherosclerotic plaque noted in the right external carotid artery. Antegrade flow is noted in the right vertebral artery. There is heterogeneous, irregular atherosclerotic plaque noted in the right bulb. Left Extracranial There is homogeneous, smooth atherosclerotic plaque noted in the left common carotid artery. There is heterogeneous, irregular atherosclerotic plaque noted in the left internal carotid artery. There is heterogeneous, irregular atherosclerotic plaque noted in the left external carotid artery. Antegrade flow is noted in the left vertebral artery. There is heterogeneous, irregular atherosclerotic plaque noted in the left bulb. Procedure Carotid Duplex 06958. This is a Carotid Duplex examination using B-mode, color flow and specral Doppler. The study was technically difficult. Exam performed in department. VL/Carotid Duplex Ultrasound Interpretation Summary Regular calcific plaque with shadowing at the proximal right internal carotid a rtery with 50 to 69% stenosis Greater than 50% stenosis right external carotid artery Irregular calcific plaque at the proximal left internal carotid artery with 50 to 69% stenosis Less than 50% stenosis left external carotid artery Patent and antegrade vertebral arteries bilaterally Ordering Physician: Veena Feliciano Referring Physician: Veena Feliciano Performed By: Lexi Shahid, RDLENNY, RVT
== END | disposition home or self-care (01) ==
LOC: CVS 10:00
PROVIDERS: PCP Internal Medicine; Visit Provider Internal Medicine
DX: I65.23 Occlusion and stenosis of bilateral carotid arteries (principal)
CPT/HCPCS: 93880

== ENCOUNTER 2022-06-14 11:37 | Outpatient (CLI) | payer MEDICARE, OTHER, SELFPAY ==
[2022-06-14 15:15] LABS: Absolute Lymphocyte Count 1.38 X10^3/uL (0.83-4.51); Absolute Neutrophil Count 8.5 X10^3/uL (2.0-7.7); Basophil# 0.03 X10^3/uL; Basophil% 0.3 % (0-1); Eosinophil# 0.22 X10^3/uL; Eosinophils% 1.9 % (0-5); Hematocrit 41.1 % (40-54); Hemoglobin 12.9 g/dL (13.0-16.5); Lymphocyte # 1.38 X10^3/ul (0.83-4.51); Lymphocyte % 12.1 % (19-41); Mean Corp Hgb Conc 31.4 g/dL (32-36); Mean Corpuscular Hgb 30.1 pg (27.0-32.0); Mean Platelet Vol. 10.9 fl (6.2-12.0); Monocyte# 1.17 X10^3/uL; Monocyte% 10.3 % (0-10); NRBC Flagged by Analyzer 0 % (0-5); Neutrophil # 8.51 X10^3/uL (2.7-7.7); Neutrophil % 74.7 % (47-70); Platelet Count 237 K/mm3 (150-450); RBC Distribution Width CV 16.7 % (11.6-14.6); RBC Distribution Width SD 57.9 fl (35.1-43.9); Red Blood Count 4.28 M/mm3 (4.6-6.2); White Blood Count 11.4 K/mm3 (4.4-11.0)
== END 2022-06-14 23:59 | disposition home or self-care (01) ==
LOC: MTLAB 11:38
PROVIDERS: PCP Internal Medicine; Referring Provider Internal Medicine Pulmonary Disease; Visit Provider Internal Medicine Pulmonary Disease
DX: I48.19 Other persistent atrial fibrillation (principal)
CPT/HCPCS: 36415; 85025

== ENCOUNTER 2022-06-16 10:30 | Outpatient (RCR) | payer MEDICARE, OTHER, SELFPAY ==
--- NOTE | 2022-04-21 13:56 | HP.PTEVAL_ITS ---
Patient's Visit Information LAUREN KELLY is a 72 year old M referred to Physical Therapy by Dr. Veena Feliciano DO with a diagnosis of Gait abnormality. Date of Evaluation: 04/21/22 Physical Therapist: Tulio Peter, ANTHONYT, OCS, CSCS - Visit Plan Frequency: 2x /Week Duration: 4-6 Weeks Plan: Biodex balance assessment then 2x/week for 4-6 weeks for. 1. vestibular balance and any other recommended by testing. 2. ankle strenvgbth band to HEP. 3. General gym strength to I. - Subjective Still working Tuesday morning in [employer]. Balance is off on irregular surfaces, blowing leaves was tough this year. Fell 4x 2 weeks ago blowing leaves. R ankle gives way most of time and he falls to the right. 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 Unsure of what is casuing neuroapthy. Sleeping OK. Basic ADLs are getting done easily. Steps at home to washer and are one step at a time and thuds with railing and wall. Grandkids are his passion 6 yo and 10 yo and 2 yo. Comes to now for ex after back rehab and doing cycles and pull downs. Wants more aggressive program. Does NS exercises at home - Pain LBP Pain Intensity (Out of 10): 7 Pain Intensity Range: 0, 7 - Objective Walks without pushoff with gastroc but I on firm flat surface, catches toe once self corrected during FGA. Transfers I. Unable to heel raise B. Steps are reciprocal but require railling for safety and cannot PF to catch body weight with descending foot so lands on heels. AROM B ankles WFL but max weak at 3/5 in B PF and R eversion 3+, others are 4-. knee extension WFL ROM and strength at 4 B, flexion is 4- L and 4 R. hip strength rotatotrs 3+ ext rotation 4- IR. abduction 3+, extension 3+ and flexion 4- B. Tightness obvious in HS and quads B. reflexes 0/3 patella and achilles. no clonus. Sensation LE limited to gross light touch in L lateral leg. - Balance/Special Test Scores Functional Gait Assessment Score: 22 % Disability: 26.6700 CATSIB Score (Max score 120 seconds): 94 Lower Extremity Functional Score: 41 - Goals Goal 1:: I approp HEP for ankle , general strength and vestibular balance Goal Time Frame: 4-6 Weeks Goal 2:: 2430 FGA to limit future problems Goal Time Frame: 4-6 Weeks Goal 3:: Pt feel balance 50% better overall Goal Time Frame: 4-6 Weeks Goal 4:: LEFS score 50 Goal Time Frame: 4-6 Weeks - Rehabilitation Potential Physical Therapy Diagnosis: Weakness in ankles likely neuropathic effecting balance. Rehabilitation Potential: Questionable - Anticipated Interventions Patient/Client Instruction: Educate patient on: Condition, Plan of Care For the Purpose of:: To decrease pain, To improve muscle performance and motor function, To increase tolerance to activity/condition/position, To improve balance, To improve safety with gait Therapeutic Exercise to Include: Strength training, Balance training For the Purpose of:: To decrease pain, To increase ROM, To increase tolerance to activity/condition/position, To improve balance, To improve safety with gait Thank you for the opportunity to evaluate your patient. For Medicare and Medicare HMO plans, please review the plan of care and approve it. It will need to be FAXED BACK to us at [phone] for Medicare purposes. For Medicare only, by signing this I certify the plan of care. Please let me know if there are questions or concerns regarding this plan of care. Physician Signature: Date:
--- NOTE | 2022-04-30 07:48 | HP.PTCOM ---
PT Communication Note 04/30/[address] Veena Feliciano, DO , Thank you for the referral of Shahzad to [facility] for balance assessment and treating. i have enclosed a copy of his test results for your review. In summation, he score very low on fall risk assessment. He scored well on the Mod CTSIB test. HE shows poor ability to shift his weight in the forward direction adn make corrections from this position and this is consistent with his ankle weakness. With these results in mind, I plan to see him per our original plan of care 2x/week for 4 weeks to work on FW weight shifts, ankle strength and balance exercises and a general strengthening program until he can do these himself independently. Please do not hesitate to contact me if there are questions regarding his physical therapy. Sincerely, ANTHONY ThomasT, OCS, CSCS Contact Information
--- NOTE | 2022-06-02 08:59 | HP.PTREVAL_ITS ---
Dr. Veena Feliciano, DO, It has been my pleasure to treat LAUREN KELLY over the last 12 visits for Gait abnormality. Please see the progress note below for an update on the physical therapy plan of care! Subjective: Fell yesterday taking trash out. L leg may have gone to sleep and hard time moving it and it went out on him. That is the only time that happene d. Was on feet alot more than usual yesterday. Walked 3 miles,. Balance is much better and ankle getting much stronger. will f/u with Dr Feliciano in two weeks. 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 No bowel or bladder problems. Objective/Function: ROM LB painful with extension to L, otherwise mod limited in flexion, poor pelvic movement. Sciatic nerve tight on L with sharp pain in stretch, ankle PF strength 4- L and 4- R, Able to get heels off ground slightly in stance. reflexes 2/3 patella and achilles reflexes. Pt doing better outside of L leg giving out yesterday when he was on his feet alot. Plan Plan: 2x/week for 2-4 more weeks for... 1. DTR L LB and pirifromis area, stretch HS and sciatic nerve on L to tolerance(ANRS). 2. NS core strength and B hip strength and progress to HEP. 3. monitor L leg for giving out as patient is to see Roger for f/u. Current unmet goals still appropriate and new goal added w ith fair prognosis. Balance/Gait/Functional tests - Balance/Special Test Scores Functional Gait Assessment Score: 22 % Disability: 26.6700 CATSIB Score (Max score 120 seconds): 94 Lower Extremity Functional Score: 37 Goals Goal 1:: I approp HEP for ankle , general strength and vestibular balance Goal Time Frame: 4-6 Weeks Goal Progress: Goal Met Goal 2:: 24/30 FGA to limit future problems Goal Time Frame: 4-6 Weeks Goal Progress: Progressing Goal 3:: Pt feel balance 50% better overall Goal Time Frame: 4-6 Weeks Goal Progress: Goal Met Goal 4:: LEFS score 50 Goal Time Frame: 4-6 Weeks Goal Progress: Progressing Goal 5:: Show hip strategy for FW corrections Goal Time Frame: 4-6 Weeks Goal Progress: Progressing Goal 6:: - ANRS stretch test L leg and 1/10 pain L LB at most. Goal Time Frame: 2-4 Weeks Goal Progress: NEW GOAL Anticipated Interventions Patient/Client Instruction: Educate patient on: Condition, Plan of Care For the Purpose of:: To decrease pain, To improve muscle performance and motor function, To increase tolerance to activity/condition/position, To improve balance, To improve safety with gait Therapeutic Exercise to Include: Strength training, Balance training For the Purpose of:: To decrease pain, To increase ROM, To increase tolerance to activity/condition/position, To improve balance, To improve safety with gait Please do not hesitate to contact me at [phone] by phone or if you have questions or concerns regarding this new plan of care! Sincerely, Tulio Peter, DPT, OCS, CSCS
--- NOTE | 2022-06-16 11:03 | HP.PTDCSUM ---
It has been my pleasure to treat LAUREN KELLY referred by Dr. Veena Feliciano DO, with the diagnosis of Gait abnormality for a total of 16 visit(s). Discharge Date: 06/16/22 Please see the following information for a summary of their discharge status. Subjective: Saw Dr. Gorman and he will do SI injection on 06/30/22 for L hip pain. Possibly RFA. Dr. Feliciano may send him to neurologist. Has pain L hip that jostles him at times and causes leg to give slightly. Balance feels better and back better but SI jooint pain is a problem, feels stronger in heel raises. LBP Pain Intensity (Out of 10): 7 % Improvement: 50 Objective/Function: Able to slightly heel raise right now. Walking I. Many sharp jolts of pain in SI area even just at rest causing flinching today, happens once or twice in WB. ANRS L is improved and not causing jolting but still painful posterior SI areea. + SI tests with hip rotation contraction on L casuing pain. Goal 1:: I approp HEP for ankle , general strength and vestibular balance Goal Progress: Goal Met Goal 2:: FGA to limit future problems Goal Progress: Progressing Goal 3:: Pt feel balance 50% better overall Goal Progress: Goal Met Goal 4:: LEFS score 50 Goal Progress: Progressing, pain limits Goal 5:: Show hip strategy for FW corrections Goal Progress: Progressing Goal 6:: - ANRS stretch test L leg and 1/10 pain L LB at most. Goal Progress: Not Progressing Plan: d/c, pt to use cane at home at all times is recommendations due to sudden flinching. Will have SI injection by pain management, will continue balance, ankle strength , ANRS and DTR with ball to L SI area at home while awaiting injection. Recommended pt follow doctor advice adn get on neuro scchedule for consult. Discharge Comments: Balance improving, pt still frustrated with SI pain and dealing with pain management. If there are questions or concerns regarding this patient's physical therapy, please feel free to call me at [phone]. Thank you for the referral of this patient. Sincerely, Tulio Peter, DPT, OCS, CSCS Balance/Gait/Functional tests - Balance/Special Test Scores Functional Gait Assessment Score: 23 % Disability: 23.3400 CATSIB Score (Max score 120 seconds): 94 Lower Extremity Functional Score: 37
== END 2022-06-16 12:47 | disposition home or self-care (01) ==
LOC: PT 10:30
PROVIDERS: PCP Internal Medicine; Referring Provider Internal Medicine; Visit Provider Internal Medicine
DX: R26.9 Unspecified abnormalities of gait and mobility (principal)
CPT/HCPCS: 97110; 97161; 97164; 97750

== ENCOUNTER 2022-07-21 09:00 | Outpatient (RCR) | payer MEDICARE, OTHER, SELFPAY | END 2022-07-27 23:59 | LOC: DC 09:00 | PROVIDERS: PCP Internal Medicine; Visit Provider Internal Medicine | DX: E11.29 Type 2 diabetes mellitus with other diabetic kidney complication (principal); I71.9 Aortic aneurysm of unspecified site, without rupture; Z79.01 Long term (current) use of anticoagulants | CPT/HCPCS: 97802; G0108 ==

== ENCOUNTER 2022-07-21 10:24 | Outpatient (RCR) | payer MEDICARE, OTHER, SELFPAY ==
[2022-07-15 09:25] LABS: INR Fingerstick 1.4; Prothrombin Time Fingerstick 17.1 SEC (11.7-14.9)
[2022-07-21 10:31] LABS: INR Fingerstick 1.8; Prothrombin Time Fingerstick 21.7 SEC (11.7-14.9)
== END 2022-07-21 18:00 | disposition home or self-care (01) ==
LOC: LAB 10:24
PROVIDERS: PCP Internal Medicine; Referring Provider Internal Medicine Cardiovascular Disease; Visit Provider Internal Medicine Cardiovascular Disease
DX: I48.19 Other persistent atrial fibrillation (principal); Z79.01 Long term (current) use of anticoagulants; E11.29 Type 2 diabetes mellitus with other diabetic kidney complication; I71.9 Aortic aneurysm of unspecified site, without rupture
CPT/HCPCS: 36416; 85610; G0108

== ENCOUNTER 2022-08-16 11:10 | Outpatient (RCR) | payer MEDICARE, OTHER, SELFPAY ==
[2022-07-29 06:36] LABS: INR Fingerstick 2.8; Prothrombin Time Fingerstick 32.4 SEC (11.7-14.9)
--- NOTE | 2022-08-16 11:25 | RAD_ITS ---
STUDY: X-RAY - LUMBAR SPINE REASON FOR EXAM: Male, 72 years old. Lower back pain. TECHNIQUE: 5 view(s) of the lumbar spine were obtained. COMPARISON: None FINDINGS: Osteopenia. Normal lumbar lordosis. There is no substantial scoliosis. 2 mm of anterolisthesis of L2 on L1, 11 mm of anterolisthesis of L4 on L3 and 3 mm of anterolisthesis of L4 on L5. Diffuse facet sclerosis. Anterior wedge compression deformity of the L1 vertebral body, age undetermined. Diffuse intervertebral disc space narrowing with osteophytes most marked in the lower thoracic spine and at L1-2. Marked vascular calcification. RAD/L/S Spine Min 4 Views IMPRESSION: Osteopenia with L1 anterior wedge compression deformity, age undetermined. Diffuse moderate to marked thoracic and lumbosacral spondylosis. Electronically Signed: Abdiel Avila, at 13:05 EDT ,
[2022-08-16 16:56] LABS: INR Fingerstick 2.1; Prothrombin Time Fingerstick 24.2 SEC (11.7-14.9)
== END 2022-08-27 21:04 | disposition home or self-care (01) ==
LOC: MTLAB 11:10
PROVIDERS: PCP Internal Medicine; Referring Provider Internal Medicine Cardiovascular Disease; Visit Provider Internal Medicine Cardiovascular Disease
DX: I48.19 Other persistent atrial fibrillation (principal); Z79.01 Long term (current) use of anticoagulants
CPT/HCPCS: 36416; 72110; 85610

== ENCOUNTER 2022-09-08 13:30 | Outpatient (RCR) | payer MEDICARE, OTHER, SELFPAY ==
--- NOTE | 2022-08-06 15:24 | HP.PTEVAL ---
Patient's Visit Information LAUREN KELLY is a 72 year old M referred to Physical Therapy by Dr. Veena Feliciano DO with a diagnosis of Lumbar radiculopathy. Date of Evaluation: 08/06/22 Physical Therapist: Tulio Peter DPT, OCS, CSCS - Visit Plan Frequency: 2x /Week Duration: 4-6 Weeks Plan: 2x/week for 4-6 weeks... 1. NS position in standing and walking and monitor ability to increase distance, ex to encourage. 2. stretch psoas and quads B. 3. teach gym based strength program for posture, core, LE and work to I as member. Pt back to doctor if not improving for MRI hip/LB - Subjective L buttock pain. Was in therapy earlier in year but left due to LBP/hip pain and neuropathy and was sent to Dr. Duggan neurologist. Has continued to do ankle exercises and balance still feels better. Dr. Gorman did an SI injection shortly after last therapy for L LBP /hip pain which helped tremendously for one week. Neurologist ordered nerve conduction test L leg. Looking for cause of back and hip pain in sciatic area or hip being out of place. Nerve test was Tuesday and no results yet. While waiting on those results, he is sent for therapy for his L LBP which is worse walking and gets bad pain to 8/10. Stop walking is improved. Sore sitting but not nearly as bad. Walking is what makes him worse. cannot sit on a hard chair comfortably but can sit on soft chair. Sleep is OK. Hurts a little going to bed at first. Piriformis stretch helps to loosen it up. Doing pelvic tilt. Retired. This pain makes activity at [facility] tough. Wants to swim but can't due to this pain and pool at [facility] closed. EX; doing balance and ankle and rides bike at times. - Pain L buttock area Pain Intensity (Out of 10): 1 Pain Intensity Range: 0, 8 - Objective Patient ambulates back to PT with L antalgia and avoiding hip extension B. has to stop half way back due to L buttock pain. Transfer chair and bed I but slow and labored. Safe with ambulation. palpation is max tender L gluts and piriformis area. Lumbar AROM ext mod limited and pain L buttock, flexion mod limited and LB tightness, SB min limited and without pain today. LE AROM hip extension 4 B and tight psoas. Rotations of hip symmetrical but endrange pain L IR/ER, Would not call it a + MARIFER or FADDIR, motion is symmetrical. Hip flexion is 110 B. some L buttock pain end range flexion L. Atrophy apparent in L gluteal area vs R. knee and ankle aROM WFL. R ankle weak PF and DF and has been for long time. L ankle 4-, knee 4, hip abd/ext 3, felxion 4-. reflexes 2/3 patella B and 1/3 achilles B, no clonus. sensation LE WNL to gross lgiht touch. - slump, - SLR. - Balance/Special Test Scores Oswestry Low Back Score: 20 - Goals Goal 1:: Patient I in appropriate NS and gym ex program to limit future problems Goal Time Frame: 4-6 Weeks Goal 2:: Pain in L buttock 2/10 at worst and 50% better. Goal Time Frame: 4-6 Weeks Goal 3:: Able to ambulate one lap at HO 500 feet without stopping due to buttock pain Goal Time Frame: 4-6 Weeks Goal 4:: Pt oswestry score 10 or better. Goal Time Frame: 4-6 Weeks - Rehabilitation Potential Physical Therapy Diagnosis: Likely LB stenosis causing weakness and pain in buttock Rehabilitation Potential: Questionable - Anticipated Interventions Patient/Client Instruction: Educate patient on: Condition, Plan of Care For the Purpose of:: To decrease pain, To increase ROM, To improve nutrient delivery to tissue, To improve muscle performance and motor function Therapeutic Exercise to Include: Strength training, Postural training, Flexibilty training, Passive ROM, Active ROM, Dynamic Lumbar Stabilization For the Purpose of:: To decrease pain, To increase ROM, To improve nutrient delivery to tissue, To improve muscle performance and motor function, To increase tolerance to activity/condition/position, To improve ability of physical actions for home/community/work/leisure Manual Therapy Techniques to Include: Mobilization, Passive ROM, Soft tissue mobilization For the Purpose of:: To decrease pain, To increase ROM, To improve nutrient delivery to tissue, To improve muscle performance and motor function, To increase tolerance to activity/condition/position Thank you for the opportunity to evaluate your patient. For Medicare and Medicare HMO plans, please review the plan of care and approve it. It will need to be FAXED BACK to us at [phone] for Medicare purposes. For Medicare only, by signing this I certify the plan of care. Please let me know if there are questions or concerns regarding this plan of care. Physician Signature: Date:
--- NOTE | 2022-09-08 14:24 | HP.PTDCSUM_ITS ---
It has been my pleasure to treat LAUREN KELLY referred by Dr. Veena Feliciano DO, with the diagnosis of Lumbar radiculopathy for a total of 8 visit(s). Discharge Date: 09/08/22 Please see the following information for a summary of their discharge status. Subjective: Getting better, pain is not severe in back like it used to be. Still unsteady on uneven ground. Legs better but still feel weak. LBP pain 4/10 intermittently worse with standing and walking. L buttock area Pain Intensity (Out of 10): 4 % Improvement: 50 Objective/Function: Pt walking 500 feet with slight pain in LB today. Steps require rail and not using forefoot. Avoids FW weight shift in walking and is we ak in PFers but able to contract, stronger in DF. Goal 1:: Patient I in appropriate NS and gym ex program to limit future problems Goal Progress: Goal Met Goal 2:: Pain in L buttock 2/10 at worst and 50% better. Goal Progress: Progressing Goal 3:: Able to ambulate one lap at HO 500 feet without stopping due to buttock pain Goal Progress: Goal Met, day to day Goal 4:: Pt oswestry score 10 or better. Goal Progress: Not Progressing Plan: d/c current chart, pt having testing from Dr. Duggan and is I in gym based core strength and ankle strength with band and LB stretches/ROM Discharge Comments: Pt to continue via home and gym exercises I. If there are questions or concerns regarding this patient's physical therapy, please feel free to call me at [phone]. Thank you for the referral of this patient. Sincerely, Tulio Peter, DPT, OCS, CSCS Balance/Gait/Functional tests - Balance/Special Test Scores Oswestry Low Back Score: 21
== END 2022-09-08 19:00 | disposition home or self-care (01) ==
LOC: PT 13:30
PROVIDERS: PCP Internal Medicine; Referring Provider Internal Medicine; Visit Provider Internal Medicine
DX: R26.89 Other abnormalities of gait and mobility (principal); M54.16 Radiculopathy, lumbar region
CPT/HCPCS: 97110; 97163; 97164

== ENCOUNTER 2022-09-21 15:26 | Outpatient (RCR) | payer MEDICARE, OTHER, SELFPAY ==
[2022-09-10 13:50] LABS: INR Fingerstick 3.5; Prothrombin Time Fingerstick 37.1 SEC (11.7-14.9)
[2022-09-21 15:50] LABS: INR Fingerstick 1.3; Prothrombin Time Fingerstick 14.5 SEC (11.7-14.9)
[2022-09-21 17:39] LABS: INR Fingerstick 2.7; Prothrombin Time Fingerstick 28.8 SEC (11.7-14.9)
== END 2022-09-26 05:29 | disposition home or self-care (01) ==
LOC: MTLAB 15:26
PROVIDERS: PCP Internal Medicine; Referring Provider Internal Medicine Cardiovascular Disease; Visit Provider Internal Medicine Cardiovascular Disease
DX: I48.19 Other persistent atrial fibrillation (principal); Z79.01 Long term (current) use of anticoagulants
CPT/HCPCS: 36416; 85610

== ENCOUNTER 2022-10-22 10:51 | Outpatient (RCR) | payer MEDICARE, OTHER, SELFPAY ==
[2022-10-01 09:15] LABS: INR Fingerstick 2.5; Prothrombin Time Fingerstick 27.5 SEC (11.7-14.9)
[2022-10-22 12:21] LABS: Absolute Lymphocyte Count 0.92 X10^3/uL (0.83-4.51); Absolute Neutrophil Count 9.5 X10^3/uL (2.0-7.7); Basophil# 0.02 X10^3/uL; Basophil% 0.2 % (0-1); Eosinophil# 0.18 X10^3/uL; Eosinophils% 1.5 % (0-5); Hematocrit 42.2 % (40-54); Hemoglobin 13.7 g/dL (13.0-16.5); Lymphocyte # 0.92 X10^3/ul (0.83-4.51); Lymphocyte % 7.8 % (19-41); Mean Corp Hgb Conc 32.5 g/dL (32-36); Mean Corpuscular Volume 92.5 fL (80-94); Mean Platelet Vol. 10.5 fl (6.2-12.0); Monocyte# 1.01 X10^3/uL; Monocyte% 8.6 % (0-10); NRBC Flagged by Analyzer 0 % (0-5); Neutrophil # 9.46 X10^3/uL (2.7-7.7); Neutrophil % 80.8 % (47-70); Platelet Count 244 K/mm3 (150-450); RBC Distribution Width CV 14.3 % (11.6-14.6); RBC Distribution Width SD 48.6 fl (35.1-43.9); Red Blood Count 4.56 M/mm3 (4.6-6.2); White Blood Count 11.7 K/mm3 (4.4-11.0)
[2022-10-22 12:26] LABS: International Normalized Ratio 3.4; Prothrombin Time (Protime)PT. 34.5 SECONDS (11.7-14.9)
== END 2022-10-22 11:51 | disposition home or self-care (01) ==
LOC: MTLAB 10:51
PROVIDERS: Nurse Practitioner Family; PCP Internal Medicine; Referring Provider Internal Medicine Cardiovascular Disease; Visit Provider Internal Medicine Cardiovascular Disease
DX: I48.19 Other persistent atrial fibrillation (principal); Z79.01 Long term (current) use of anticoagulants
CPT/HCPCS: 36415; 36416; 85025; 85610

== ENCOUNTER → 2022-11-08 | Outpatient (CLI) | payer MEDICARE, OTHER, SELFPAY ==
--- NOTE | 2022-11-08 11:03 | VDLE_ITS ---
Reason For Study: LLE swelling RIGHT LEFT CFV is compressible, spontaneous, phasic, CFV is compressible, spontaneous, phasic, competent and demonstrates normal competent, and demonstrates normal augmentation. augmentation. Procedure FV is compressible, spontaneous, phasic, This is a venous duplex using B-mode, color competent and demonstrates normal flow and spectral Doppler. augmentation. Exam performed in department. POP V is compressible, spontaneous, phasic, A preliminary report was called and/or faxed competent and demonstrates normal to Dr. Feliciano @ [phone] @ 11:30 am. augmentation. T/P Trunk is compressible. PTV is compressible. LT PerV is compressible. GSV is absent due to harvest for CABG. VL/Venous Duplex US, Unilateral Interpretation Summary Deep veins of the left lower extremity are patent and compressible segmentally. There is no evidence of left lower extremity deep vein thrombosis. Ordering Physician: Veena Feliciano Referring Physician: Veena Feliciano Performed By: Lexi Shahid, ROSA ELENA, RVT
== END | disposition home or self-care (01) ==
LOC: CVS 11:02
PROVIDERS: PCP Internal Medicine; Referring Provider Internal Medicine; Visit Provider Internal Medicine
DX: M79.89 Other specified soft tissue disorders (principal)
CPT/HCPCS: 93971

== ENCOUNTER → 2022-11-10 | Outpatient (CLI) | payer MEDICARE, OTHER, SELFPAY ==
--- NOTE | 2022-11-10 11:39 | RAD_ITS ---
STUDY: X-RAY - LEFT FOOT CLINICAL: Male, 72 years old. Dorsal left foot pain. TECHNIQUE: 3 view(s) of the foot. COMPARISON: January 10, 2015. FINDINGS: Stable plantar spur. Normal talus and tarsal bones. Normal visualized subtalar, talonavicular, calcaneocuboid, tarsal and tarsometatarsal articulations. Normal metatarsi. Normal metatarsophalangeal joint of the great toe. Normal tibial and fibular sesamoid bones. Normal interphalangeal joint of the great toe. Normal phalanges of the great toe. Normal second through fifth metatarsophalangeal joints. Normal interphalangeal joints and phalanges of the lesser toes. The soft tissue structures are unremarkable. RAD/Foot min 3 Views IMPRESSION: Plantar spur. There is no acute abnormality. Electronically Signed: Ibrahima Espitia DO at 22:52 EDT ,
== END | disposition home or self-care (01) ==
LOC: RAD 11:38
PROVIDERS: PCP Internal Medicine; Referring Provider Internal Medicine; Visit Provider Internal Medicine
DX: M79.672 Pain in left foot (principal)
CPT/HCPCS: 73630

== ENCOUNTER 2022-11-15 07:00 | Outpatient (RCR) | payer MEDICARE, OTHER, SELFPAY ==
--- NOTE | 2022-09-15 14:16 | HP.PTEVAL ---
Patient's Visit Information LAUREN KELLY is a 72 year old M referred to Physical Therapy by Dr. Veena Feliciano DO with a diagnosis of Poor balance. Date of Evaluation: 09/15/22 Physical Therapist: Tulio Peter, ANTHONYT, OCS, CSCS - Visit Plan Frequency: 2x /Week Duration: 4-6 Weeks Plan: 2x/week for 4-6 weeks for. 1. FW weight shifting ex on biodex. Functional FW weight shift ex to [place]. Started Fw weight shifting ex today in stance for HEP - Subjective Having RFA on low back tuesday which has helped in the past for 4-5 yrs. Will have MRI of back due to weakness and back pain. No falls lately but legs feel heavy. uses walking stick on uneven ground which has saved him a few times. Walks through slopy yard with stick. Working out in gym I regularly. Sleep is OK. Back pain can hurt and keep him up at times. - Objective Gait is I on firm flat surface and does not push off , has a heavy footed gait pattern without resisteable PF.. Balance is pretty good outside of lacking FW weight shift and this is consistent with his previous balance test 4 months ago. Unable to heel raise and having MRI to deteermine neuropathy reason. 32# R and 34#L PF strefngth, eversions are weak also at 3+ and inv and DF 4/5. knee strength 4/5, hip strength 4-/5. reflexes 0/3 achilles and patella. Sensation distal LE at deficit to gross lgiht touch B. Unable to confidently shift weight in FW direction without hesitation and step strategy. - Balance/Special Test Scores Functional Gait Assessment Score: 25 % Disability: 16.6700 CATSIB Score (Max score 120 seconds): 110 Lower Extremity Functional Score: 36 - Goals Goal 1:: 40# strength in B PF to help manage balance Goal Time Frame: 4-6 Weeks Goal 2:: I appropriate FW weight shift ex to manage neuroapthy Goal Time Frame: 4-6 Weeks Goal 3:: Pt feel 50% better in overall balance Goal Time Frame: 4-6 Weeks Goal 4:: LEFS score 45 Goal Time Frame: 4-6 Weeks - Rehabilitation Potential Physical Therapy Diagnosis: Pt has poor balance due to ineffective PF strength and Fw weight shift ability. Other balance systems look good. They are trying to determine the casue of this apparent neuropathy and appropriate for appropriate balance strength in the meantime on biodex as a change of pace from previous therapy. Rehabilitation Potential: Questionable - Anticipated Interventions Patient/Client Instruction: Educate patient on: Condition, Plan of Care For the Purpose of:: To improve muscle performance and motor function, To improve balance Therapeutic Exercise to Include: Strength training, Balance training For the Purpose of:: To improve balance, To improve safety with gait Thank you for the opportunity to evaluate your patient. For Medicare and Medicare HMO plans, please review the plan of care and approve it. It will need to be FAXED BACK to us at [phone] for Medicare purposes. For Medicare only, by signing this I certify the plan of care. Please let me know if there are questions or concerns regarding this plan of care. Physician Signature: Date:
--- NOTE | 2022-10-18 07:28 | HP.PTREVAL ---
Dr. Veena Feliciano, DO, It has been my pleasure to treat LAUREN KELLY over the last 7 visits for Poor balance. Please see the progress note below for an update on the physical therapy plan of care! Subjective: Last 3 days have felt better for some reason. Saw Sylvia last two weeks and given prednisone orally. That may have helped. L leg still goes to sleep. Getting around a little without cane. Walked on uneven ground yesterday and felt good, also did pool therapy. Will likely have surgery December 06 if he wishes. Objective/Function: L PF 32# and R is 36#. Left adn forward weight shift are still failures and LOB on LOS testing, R side shifting and BW right are improved. Pt is on prednisone today and will wean off over next 5 days. Overall , hard to note any functional improvement. Plan Plan: recheck strength and LOS again after patient weans off of prednisone. LEFS Balance/Gait/Functional tests - Balance/Special Test Scores Functional Gait Assessment Score: 25 % Disability: 16.6700 CATSIB Score (Max score 120 seconds): 110 Lower Extremity Functional Score: 36 Goals Goal 1:: 40# strength in B PF to help manage balance Goal Time Frame: 4-6 Weeks Goal Progress: Not Progressing Goal 2:: I appropriate FW weight shift ex to manage neuroapthy Goal Time Frame: 4-6 Weeks Goal Progress: Progressing Goal 3:: Pt feel 50% better in overall balance Goal Time Frame: 4-6 Weeks Goal Progress: on prednisone Goal 4:: LEFS score 45 Goal Time Frame: 4-6 Weeks Anticipated Interventions Patient/Client Instruction: Educate patient on: Condition, Plan of Care For the Purpose of:: To improve muscle performance and motor function, To improve balance Therapeutic Exercise to Include: Strength training, Balance training For the Purpose of:: To improve balance, To improve safety with gait Please do not hesitate to contact me at [phone] by phone or if you have questions or concerns regarding this new plan of care! Sincerely, Tulio Peter, DPT, OCS, CSCS
--- NOTE | 2022-11-15 07:29 | HP.PTDCSUM_ITS ---
It has been my pleasure to treat LAUREN KELLY referred by Dr. Veena Feliciano DO, with the diagnosis of Poor balance for a total of 8 visit(s). Discharge Date: 11/15/22 Please see the following information for a summary of their discharge status. Subjective: Had a caudal and back ffel s much better. L leg still feels weak. Has been walking and doing gym and pool ex. Not going to have surgery. Still on prednisone due to a cough, but will go off again. Will not have surgery if back feels better and caudal lasts. Leg is holding him up, ankles twist some times. Doing ankle ex faithfully. LBP Pain Intensity (Out of 10): 0 % Improvement: 70 Objective/Function: 44# R Df adn 39# L. IMPROVED. LOS not improved in the forward direction and still has 5 LOB during the 9 trials but seems to be more cofnident anad defintely without pain limitations today. Walking well without cane. Goal 1:: 40# strength in B PF to help manage balance Goal Progress: Progressing Goal 2:: I appropriate FW weight shift ex to manage neuroapthy Goal Progress: Goal Met Goal 3:: Pt feel 50% better in overall balance Goal Progress: Goal Met Goal 4:: LEFS score 45 Plan: d/c Discharge Comments: Pt to continue with HEP and pool and gym ex, and contact doctor if situaion worsens. If there are questions or concerns regarding this patient's physical therapy, please feel free to call me at [phone]. Thank you for the referral of this patient. Sincerely, Tulio Peter, DPT, OCS, CSCS Balance/Gait/Functional tests - Balance/Special Test Scores Functional Gait Assessment Score: 25 % Disability: 16.6700 CATSIB Score (Max score 120 seconds): 110 Lower Extremity Functional Score: 40
== END 2022-11-15 13:23 | disposition home or self-care (01) ==
LOC: PT 07:00
PROVIDERS: PCP Internal Medicine; Referring Provider Internal Medicine; Visit Provider Internal Medicine
DX: R26.89 Other abnormalities of gait and mobility (principal)
CPT/HCPCS: 97110; 97161; 97164; 97530

== ENCOUNTER 2022-11-16 14:32 | Outpatient (RCR) | payer MEDICARE, OTHER, SELFPAY ==
[2022-10-29 15:39] LABS: INR Fingerstick 2.1; Prothrombin Time Fingerstick 23.3 SEC (11.7-14.9)
[2022-11-03 14:14] LABS: INR Fingerstick 1.4; Prothrombin Time Fingerstick 15.5 SEC (11.7-14.9)
[2022-11-12 09:26] LABS: INR Fingerstick 1.3; Prothrombin Time Fingerstick 15.1 SEC (11.7-14.9)
[2022-11-16 15:16] LABS: INR Fingerstick 2.6; Prothrombin Time Fingerstick 27.6 SEC (11.7-14.9)
== END 2022-11-16 18:00 | disposition home or self-care (01) ==
LOC: MTLAB 14:32
PROVIDERS: Internal Medicine Cardiovascular Disease; PCP Internal Medicine; Referring Provider Internal Medicine Cardiovascular Disease; Visit Provider Internal Medicine Cardiovascular Disease
DX: I48.19 Other persistent atrial fibrillation (principal); Z79.01 Long term (current) use of anticoagulants
CPT/HCPCS: 36416; 85610

== ENCOUNTER → 2022-11-29 | Outpatient (CLI) | payer MEDICARE, OTHER, SELFPAY ==
--- NOTE | 2022-11-29 13:10 | VDLE_ITS ---
Reason For Study: BLE EDEMA RIGHT LEFT CFV is compressible, spontaneous, phasic, GSV is normal. competent and demonstrates normal CFV is compressible, spontaneous, phasic, augmentation. competent, and demonstrates normal FV is compressible, spontaneous, phasic, augmentation. competent and demonstrates normal FV is compressible, spontaneous, phasic, augmentation. competent and demonstrates normal POP V is compressible, spontaneous, phasic, augmentation. competent and demonstrates normal POP V is compressible, spontaneous, phasic, augmentation. competent and demonstrates normal T/P Trunk is compressible. augmentation. PTV is compressible. T/P Trunk is compressible. RT PerV is compressible. PTV is compressible. GSV is HARVESTED for CBAG. LT PerV is compressible. SSV is COMPRESSIBLE. SSV is NON-COMPRESSIBLE with HYPERECHOIC ECHOES noted within vessel C/W CHRONIC SVT. Procedure This is a venous duplex using B-mode, color flow and spectral Doppler. Exam performed in department. A preliminary report was called and/or faxed to Dr. Feliciano @ [phone] @ 1:40 pm. VL/Venous Duplex US - Lito Extrem Interpretation Summary Chronic superficial vein thrombosis is noted in the right small saphenous vein Ordering Physician: Veena Feliciano Referring Physician: Veena Feliciano Performed By: Lexi Shahid, ROSA ELENA, RVT
== END | disposition home or self-care (01) ==
LOC: CVS 13:07
PROVIDERS: PCP Internal Medicine; Referring Provider Internal Medicine; Visit Provider Internal Medicine
DX: I82.811 Embolism and thrombosis of superficial veins of right lower extremity (principal)
CPT/HCPCS: 93970

== ENCOUNTER 2022-12-10 08:23 | Outpatient (RCR) | payer MEDICARE, OTHER, SELFPAY ==
[2022-11-29 11:47] LABS: International Normalized Ratio 3.2; Prothrombin Time (Protime)PT. 33.5 SECONDS (11.7-14.9)
[2022-11-29 14:31] LABS: INR Fingerstick 4.3; Prothrombin Time Fingerstick 44.6 SEC (11.7-14.9)
[2022-12-06 15:44] LABS: INR Fingerstick 3.2; Prothrombin Time Fingerstick 33.7 SEC (11.7-14.9)
[2022-12-10 08:36] LABS: INR Fingerstick 1.5; Prothrombin Time Fingerstick 16.9 SEC (11.7-14.9)
== END 2022-12-27 18:00 | disposition home or self-care (01) ==
LOC: MTLAB 08:23
PROVIDERS: Internal Medicine Cardiovascular Disease; PCP Internal Medicine; Referring Provider Internal Medicine Cardiovascular Disease; Visit Provider Internal Medicine Cardiovascular Disease
DX: I48.19 Other persistent atrial fibrillation (principal); Z79.01 Long term (current) use of anticoagulants; J45.50 Severe persistent asthma, uncomplicated
CPT/HCPCS: 36415; 36416; 85610

== ENCOUNTER → 2022-12-14 | Outpatient (CLI) | payer MEDICARE, OTHER, SELFPAY ==
--- NOTE | 2022-12-14 15:21 | RAD_ITS ---
STUDY: X-RAY CHEST REASON FOR EXAM: Male, 72 years old. cough -- cough TECHNIQUE: PA and lateral views of the chest. COMPARISON: 04/05/2022 FINDINGS: Status post median sternotomy. Poor inspiration with some bibasilar atelectasis. There is no demonstrated pleural abnormality. Normal size heart. Normal mediastinum and rod. Normal visualized pulmonary arteries. Normal visualized aortic arch and descending thoracic aorta. Normal visualized thoracic spine. Normal visualized ribs, clavicles, and shoulders. There is no demonstrated abnormality of the visualized soft tissue structures of the upper abdomen. RAD/Chest PA and Lateral IMPRESSION: Poor inspiration with some bibasilar atelectasis. Electronically Signed: Kenyon Malone MD at 23:17 EDT ,
== END | disposition home or self-care (01) ==
LOC: MTLAB 15:21
PROVIDERS: PCP Internal Medicine; Referring Provider Internal Medicine; Visit Provider Internal Medicine
DX: R05.9 Cough, unspecified (principal)
CPT/HCPCS: 71046

== ENCOUNTER 2022-12-24 20:08 | Emergency (ER) | payer MEDICARE, OTHER, SELFPAY ==
[2022-12-24 20:09] VITALS: BP 135/84; PULSE 77; RESP 16; TEMP 36.4
[2022-12-24 20:10] VITALS: BP 135/84; PULSE 77; RESP 16; TEMP 36.4; BMI 30.1
--- NOTE | 2022-12-24 21:55 | RAD_ITS ---
STUDY: X-RAY - RIGHT ANKLE REASON FOR EXAM: Male, 72 years old. Injury/Pain TECHNIQUE: 3 view(s) of the ankle. COMPARISON: 12/22/2022. FINDINGS: Normal visualized distal tibia and fibula. Normal medial and lateral malleoli. Normal tibiotalar articulation and ankle mortise. Normal visualized talus and calcaneus. The visualized subtalar, talonavicular, calcaneocuboid and tarsal articulations are normal. There is no demonstrated fracture. The soft tissue structures are unremarkable. RAD/Ankle min 3 Views IMPRESSION: No change since 2 days prior, no fracture or dislocation. Electronically Signed: Sergio Carlisle MD at 22:24 EDT ,
--- NOTE | 2022-12-24 22:32 | ED.VIS.LOWEX ---
HPI History of Present Illness Chief Complaint: Lower Extremity Injury Detail of Chief Complaint: Plantar inversion mechanism injury right ankle with skin avulsion right and Informant: patient and spouse/S.O. Occured/Mechanism Mechanism/Context: Yes injury, Yes fall and Yes same level fall Comment: Patient tripped. He did not hit his head. He denies headache. Denies nausea or vomiting. Denies neck pain He denies paresthesia, anesthesia or motor weakness. Onset/Context/Timing Onset: Hours Context: Sudden Onset Timing: Continuous Quality of Pain: Dull and Aching Location: Right ankle Current Severity: Mild Maximum Severity: Moderate Worsened by: weightbearing and movement Relieved by: Improves with elevation and rest Associated Symptoms Associated Symptoms: Negative for Parasthesia, Weakness or Loss of Funtion Narrative Narrative: Patient is a 72-year-old male on anticoagulant. He had a mechanical fall. He denies head trauma. He denies loss of conscious. Not amnestic. Denies neck pain. He denies paresthesia, anesthesia or motor weakness. He denies cardiac or respiratory symptoms. [place] black or maroon-colored stool. He has injury to the dorsum of the right and left forearm. He also has abrasions to the right and left knee. His main complaint is his right ankle. His right ankle swollen and discolored. He denies any other symptoms. 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 of drug HEVER on CPAP Paroxysmal atrial fibrillation Persistent atrial fibrillation Premature ventricular contractions Pulmonary embolism Pure hypercholesterolemia Home Medications montelukast 10 mg tablet 10 mg PO DAILY BREATHING 09/07/15 [History Last Taken 08/15/17] cholecalciferol (vitamin D3) 50 mcg (2,000 unit) capsule 6,000 unit PO DAILY VITAMIN 08/12/16 [History Last Taken 08/11/16] ascorbic acid (vitamin C) 500 mg capsule 500 mg PO DAILY VITAMIN 10/24/17 [History Last Taken Unknown] budesonide-formoterol HFA 160 mcg-4.5 mcg/actuation aerosol inhaler (Symbicort) 2 puff inhalation Q12H BREATHING 12/11/18 [History Last Taken Unknown] acetaminophen 500 mg tablet 2 tab PO TID PRN Pain #1 TAB 01/11/19 [Rx Last Taken Unknown] metformin 500 mg tablet 500 mg PO TID DM 09/04/20 [History Last Taken Unknown] cetirizine 10 mg tablet 10 mg PO DAILY PRN Allergy Symptoms 09/24/21 [History Last Taken Unknown] losartan 100 mg tablet 100 mg PO DAILY 09/24/21 [History Last Taken 11/17/21] metoprolol tartrate 50 mg tablet 50 mg PO BID HEART #180 tabs 11/05/21 [Rx Last Taken 11/17/21] amiodarone 200 mg tablet 200 mg PO DAILY #90 tabs 06/14/22 [Rx Last Taken Unknown] furosemide 40 mg tablet 40 mg PO BID PRN edema 09/20/22 [History Last Taken Unknown] multivitamin 1 tab PO DAILY VITAMIN 09/20/22 [History Last Taken Unknown] aspirin 81 mg chewable tablet 81 mg PO Q OTHER DAY HEART HEALTH 09/23/22 [History Last Taken Unknown] apixaban 5 mg tablet (Eliquis) 5 mg PO BID #180 tabs 12/08/22 [Rx Last Taken Unknown] albuterol sulfate 90 mcg/actuation aerosol inhaler 2 puff inhalation Q6H PRN 12/23/22 [History Last Taken Unknown] alirocumab 75 mg/mL subcutaneous pen injector (Praluent Pen) 150 mg subcut Q2W 12/23/22 [History Last Taken Unknown] coenzyme Q10 400 mg capsule (Co Q-10) 400 mg PO DAILY 12/23/22 [History Last Taken Unknown] oxycodone 40 mg tablet,crush resistant,extended release 12 hr 40 mg PO BID 12/23/22 [History Last Taken Unknown] ropinirole 4 mg tablet 4 mg PO DAILY 12/23/22 [History Last Taken Unknown] Allergy/AdvReac Type Severity Reaction Status Date / Time simvastatin AdvReac Severe Myalgias,se Verified 12/24/22 20:15 [place] Family History Father Myocardial infarction CAD (coronary artery disease) Brother Hypertension Surgical History H/O coronary artery bypass surgery (~12/17/03) History of cardioversion (10/13/21) S/P coronary artery bypass graft x 2 Social History Smoking Status: Never smoker alcohol intake: current substance use type: does not use ROS ROS ED Constitutional Constitutional ED: Denies chills, fever(s) or subjective Eyes Eyes: Denies blurry vision, change in vision or diplopia ENT ENT ED: Denies ear pain, rhinorrhea or sore throat Cardiovascular Cardiovascular: Denies chest pain or palpitations Respiratory/Chest Respiratory/Chest: Denies cough, dyspnea or dyspnea on exertion Gastrointestinal Gastrointestinal: Denies abdominal pain, nausea or vomiting Musculoskeletal Musculoskeletal: Reports other Details: Right ankle ; Denies arthralgias, back pain, myalgias or neck pain Integumentary Reports other Details: Skin avulsion dorsal surface of the right left forearm 3 x 5 cm and abrasion anterior right and left knee Neurologic Neurologic: Denies headache(s), paresthesias or weakness Endocrine Endocrinology: Denies polydipsia, polyphagia or polyuria Hematologic/Lymphatic Hematologic/Lymphatic: Reports easy bruising EXAM Physical Exam Const Vital Signs: 12/24/22 20:10 12/24/22 20:09 Temperature 97.6 F L 97.6 F L Temperature Source Temporal Temporal Pulse Rate 77 77 Respiratory Rate 16 16 Blood Pressure 135/84 H 135/84 H Blood Pressure Mean 101 101 Positive well nourished and well developed General Appearance ED: well developed and NAD HEENT Reports moist mucous membranes HEENT Narrative: No clinical findings of basilar skull fracture. No septal deviation or hematoma. normocephalic and atraumatic Eyes PERRL Eyes Narrative: Extract muscle intact. Sclera is no apparent. Neck full ROM and supple Chest Wall inspection of chest normal and palpation of chest normal Resp normal respiratory effort, no retractions and clear to auscultation bilaterally Cardio regular rate and no murmurs Rhythm: abnormal rhythm irregularly irregular GI non-tender, non-distended and no masses Back/Spine Cervical Spine: Negative for cervical spine tenderness Extremity Negative for normal to inspection Extremity Narrative: Skin avulsion dorsal surface of right left forearm as previously described an abrasion of the right left knee. Right left knee are not swollen. There is no effusion. There is no laxity varus valgus stress testing. There is no joint line tenderness. There is no Norvasc optimized. There is no pain the patient of the lateral medial epicondyles, olecranon process or radial head right or left. There is no pain ovation over the distal radius or ulna right or left. Axillary, median, radial and ulnar function intact. General Extremety ED: Yes weight-bearing difficulty; Negative for cyanosis General Extremity: weight-bearing difficulty; Negative for cyanosis Neuro oriented x3, CN's II-XII intact bilaterally and moves all extremities Sensorium / Orientation: alert Plantar Reflex: Downgoing: bilateral Psych mental status grossly normal Skin Skin Narrative: Avulsion of the tissue right and left forearm and abrasion as previously described MDM MDM MDM Narrative Medical decision making narrative: Per [place] ankle rule imaging is required since he has pain distal 3 to 4 cm the lateral malleolus. Tetanus is up-to-date. Wound care per nursing staff. Radiography Chest X-Ray - ED: Read by ED Physician (3 View x-ray of the ankle is independently reviewed and interpreted by me at 2219. There is no fracture, subluxation dislocation by the soft tissue swelling. This is compared to prior.) Diagnostic Testing: Clinical Impression(s) from Imaging Studies Ankle X-Ray 12/24/22 21:55 IMPRESSION: No change since 2 days prior, no fracture or dislocation. Electronically Signed: Sergio Carlisle MD at 22:24 EDT , Discharge Plan Triage Chief Complaint: Lower Extremity Injury ED Provider: Stanton Gutierrez Dx/Rx/DC Orders Clinical Impression: Right ankle sprain, H/O coronary artery bypass surgery, Atherosclerotic heart disease of [place] coronary artery without angina pectoris, Essential hypertension, Anticoagulant long-term use, DM2 (diabetes mellitus, type 2), Avulsion of skin of left forearm, Avulsion of skin of right forearm, Abrasion of knee, bilateral Instructions: ED Abrasion, ED Skin Avulsion, ED Ankle Sprain (Adult) Prescriptions: No Action ascorbic acid (vitamin C) 500 mg capsule 500 mg PO DAILY Symbicort 160-4.5 mcg/actuation HFA aerosol inhaler 2 puff INHALATION Q12H losartan 100 mg tablet 100 mg PO DAILY cetirizine 10 mg tablet 10 mg PO DAILY PRN (Reason: Allergy Symptoms) metoprolol tartrate 50 mg tablet 50 mg PO BID Qty: 180 3RF furosemide 40 mg tablet 40 mg PO BID PRN (Reason: edema) Patient Comments: Takes pending lifestyle and symptoms. Praluent Pen 75 mg/mL pen injector 150 mg subcut Q2W Patient Comments: INJECT 1ML SUBCUTANEOUSLY EVERY TWO WEEKS albuterol sulfate 90 mcg/actuation HFA aerosol inhaler 2 puff inhalation Q6H PRN ropinirole 4 mg tablet 4 mg PO DAILY coenzyme Q10 [Co Q-10] 400 mg capsule 400 mg PO DAILY oxycodone 40 mg tablet,oral only,ext.rel.12 hr 40 mg PO BID montelukast 10 MG tablet 10 mg PO DAILY Patient Comments: ALLERGIES multivitamin Tablet 1 tab PO DAILY Patient Comments: SUPPLEMENT cholecalciferol (vitamin D3) 2,000 UNIT capsule 6,000 unit PO DAILY metformin 500 mg tablet 500 mg PO TID acetaminophen 500 MG tablet 2 tab PO TID PRN (Reason: Pain) Qty: 1 0RF amiodarone 200 mg tablet 200 mg PO DAILY Qty: 90 3RF aspirin 81 mg tablet,chewable 81 mg PO Q OTHER DAY Patient Comments: HEART HEALTH Eliquis 5 mg tablet 5 mg PO BID Qty: 180 3RF Primary Care Provider: Veena Feliciano Referrals: Veena Feliciano DO [Primary Care Provider] - 1 Week if not improving Activity Restrictions/Additional Instructions: 1. Apply ice to your right ankle 6-10 times a day 2. Draw the alphabet with your foot 4-6 times a day. 3. Take Tylenol for your pain. Disposition Disposition: Home, Self Care
== END 2022-12-24 23:02 | disposition home or self-care (01) ==
PROVIDERS: Emergency Provider Emergency Medicine; PCP Internal Medicine; Visit Provider Emergency Medicine
DX: S93.401A Sprain of unspecified ligament of right ankle, initial encounter (principal); E11.9 Type 2 diabetes mellitus without complications; I25.10 Atherosclerotic heart disease of native coronary artery without angina pectoris; S80.211A Abrasion, right knee, initial encounter; S50.811A Abrasion of right forearm, initial encounter; S50.812A Abrasion of left forearm, initial encounter; S80.212A Abrasion, left knee, initial encounter; I10 Essential (primary) hypertension; G47.33 Obstructive sleep apnea (adult) (pediatric); Z95.1 Presence of aortocoronary bypass graft; W18.30XA Fall on same level, unspecified, initial encounter; Z86.718 Personal history of other venous thrombosis and embolism; Z86.711 Personal history of pulmonary embolism; Z79.01 Long term (current) use of anticoagulants
CPT/HCPCS: 73610; 78452; 93017; 99282; A9500; A4216; J2785

== ENCOUNTER → 2022-12-24 | Outpatient (CLI) | payer MEDICARE, OTHER, SELFPAY ==
--- NOTE | 2022-12-24 16:44 | STRESSREP_ITS ---
Stress Test Report Pharmacologic myocardial perfusion stress test. 72-year-old man with a history of coronary disease for preoperative cardiac evaluation Resting EKG demonstrates sinus bradycardia with a rate of 56 bpm. Resting blood pressure is 114/72 mmHg. 0.4 mg of regadenoson was infused per usual protocol followed by rapid intravenous saline flush injection. Continuous EKG monitoring was performed. The maximum heart rate was 67 bpm which was 45% of max impacted heart rate the maximum workload was 1 metabolic equivalent. At rest there were no ST or T wave changes noted to suggest ischemia and at peak infusion nonspecific ST changes were noted which did not meet the criteria for ischemia. No clinical angina is noted. The final blood pressure was 118/70 mmHg. Myocardial perfusion protocol. 14.1 mCi of technetium 99m sestamibi was injected at rest. 0.4 mg of regadenoson was infused per usual protocol. At peak infusion 44.3 mCi of tech netium 99m sestamibi was injected stress images were obtained stress and rest images were reconstructed and compared in the short axis vertical long and horizontal long axis. Gated images were also obtained. Perfusion SPECT analysis: Review of the stress images demonstrate normal uptake of tracer noted in all areas of the myocardium. The resting images similar demonstrated normal uptake of tracer noted in all areas of the myocardium. No areas of reversibility are noted to suggest ischemia and no previous infarct is noted. Gated SPECT analysis: The gated ejection fraction is 75%. Conclusion: Normal pharmacologic myocardial perfusion stress test. Preserved ejection fraction.
== END | disposition home or self-care (01) ==
LOC: CVS 06:36
PROVIDERS: PCP Internal Medicine; Referring Provider Internal Medicine Cardiovascular Disease; Visit Provider Internal Medicine Cardiovascular Disease
DX: Z01.810 Encounter for preprocedural cardiovascular examination (principal); I25.10 Atherosclerotic heart disease of native coronary artery without angina pectoris; Z95.1 Presence of aortocoronary bypass graft
CPT/HCPCS: 78452; 93017; A9500; A4216; J2785

== ENCOUNTER → 2023-03-10 | Outpatient (CLI) | payer MEDICARE, OTHER, SELFPAY | END | disposition home or self-care (01) | LOC: LABSPEC 16:10 | PROVIDERS: PCP Internal Medicine; Visit Provider Urology | DX: M54.9 Dorsalgia, unspecified (principal) | CPT/HCPCS: 87086; 87088 ==

== ENCOUNTER → 2023-03-11 | Outpatient (CLI) | payer MEDICARE, OTHER, SELFPAY ==
[2023-03-11 10:03] LABS: Absolute Lymphocyte Count 0.98 X10^3/uL (0.83-4.51); Absolute Neutrophil Count 8.3 X10^3/uL (2.0-7.7); Basophil# 0.01 X10^3/uL; Basophil% 0.1 % (0-1); Eosinophil# 0.16 X10^3/uL; Eosinophils% 1.6 % (0-5); Hematocrit 35.2 % (40-54); Hemoglobin 11.2 g/dL (13.0-16.5); Lymphocyte # 0.98 X10^3/ul (0.83-4.51); Lymphocyte % 9.6 % (19-41); Mean Corp Hgb Conc 31.8 g/dL (32-36); Mean Corpuscular Hgb 28.6 pg (27.0-32.0); Mean Platelet Vol. 11.2 fl (6.2-12.0); Monocyte# 0.68 X10^3/uL; Monocyte% 6.7 % (0-10); NRBC Flagged by Analyzer 0 % (0-5); Neutrophil # 8.28 X10^3/uL (2.7-7.7); Neutrophil % 81.5 % (47-70); Platelet Count 249 K/mm3 (150-450); RBC Distribution Width CV 14.5 % (11.6-14.6); RBC Distribution Width SD 47.5 fl (35.1-43.9); Red Blood Count 3.91 M/mm3 (4.6-6.2); White Blood Count 10.2 K/mm3 (4.4-11.0)
[2023-03-11 10:33] LABS: ALB/GLOB Ratio 0.9 RATIO (0.9-2.4); AST(SGOT) 18 U/L (15-37); Alanine Aminotransfer ALT/SGPT 31 U/L (16-61); Alkaline Phosphatase 77 U/L (45-117); Anion Gap 11 (5-15); BUN 23 mg/dL (7-18); BUN/Creat Ratio 19.7 RATIO (10-20); Calcium,Total 8.8 mg/dL (8.5-10.1); Chloride 105 mmol/L (98-107); Creatinine, Serum 1.17 mg/dL (0.70-1.30); EST Glomerular Filtration Rate 65 mL/min (>60); Est Glom Filt Rate - Afr Amer 78 mL/min (>60); Globulin 3.3 g/dL (2.2-4.2); Glucose 147 mg/dL (74-106); Potassium 4.2 mmol/L (3.5-5.1); Protein, Total 6.3 g/dL (6.4-8.2); Sodium Level 141 mmol/L (136-145); Uric Acid 6.1 mg/dL (3.5-7.2)
== END | disposition home or self-care (01) ==
LOC: LABSPEC 09:54
PROVIDERS: PCP Internal Medicine; Referring Provider Internal Medicine; Visit Provider Internal Medicine
DX: M79.674 Pain in right toe(s) (principal)
CPT/HCPCS: 80053; 84550; 85025; 86140

== ENCOUNTER → 2023-04-26 | Outpatient (CLI) | payer MEDICARE, OTHER, SELFPAY ==
--- NOTE | 2023-04-26 07:30 | US_ITS ---
EXAM: US ABDOMEN LIMITED, RIGHT UPPER QUADRANT CLINICAL INDICATION: fatty liver TECHNIQUE: Real-time ultrasound of the right upper quadrant with image documentation. COMPARISON: No relevant prior studies available. FINDINGS: LIVER: Mild hepatomegaly. The liver measures about 18.7 cm in length. Increased liver echogenicity. No intrahepatic biliary ductal dilation. GALLBLADDER: The gallbladder wall measures 2 mm. No shadowing gallstone. No pericholecystic fluid. Negative sonographic Snider''s sign. COMMON BILE DUCT: Unremarkable as visualized. The proximal common bile duct is within normal limits for the patient''s age measuring about 4 mm. PANCREAS: Suboptimally visualized due to overlying bowel gas. RIGHT KIDNEY: The right kidney measures 11.5 cm in length. There is no hydronephrosis. No shadowing calculus. No focal lesion or perinephric collection is demonstrated. US/Abdomen Limited IMPRESSION: 1. Mild hepatomegaly. 2. Fatty infiltration of the liver. Electronically Signed: Lele Peetrsen MD at 15:58 EST ,
== END | disposition home or self-care (01) ==
LOC: US 07:29
PROVIDERS: PCP Internal Medicine; Referring Provider Internal Medicine; Visit Provider Internal Medicine
DX: K76.0 Fatty (change of) liver, not elsewhere classified (principal)
CPT/HCPCS: 76705

== ENCOUNTER → 2023-07-07 | Outpatient (CLI) | payer MEDICARE, OTHER, SELFPAY ==
--- NOTE | 2023-07-07 09:00 | RAD_ITS ---
STUDY: X-RAY CHEST REASON FOR EXAM: Male, 73 years old. Cough TECHNIQUE: PA and lateral views of the chest. COMPARISON: Comparison is made with prior study dated June 14, 2023. FINDINGS: There is hyperinflation of the lungs consistent with chronic obstructive lung disease (COPD). There is no demonstrated pleural abnormality. Sternal cerclage wires and vascular clips are present from a prior sternotomy and coronary artery bypass graft procedure (CABG). Normal mediastinum and rod. Normal visualized pulmonary arteries. Normal visualized aortic arch and descending thoracic aorta. There are degenerative changes of the visualized thoracic spine. A metallic anchor is seen overlying the left humeral head suggestive of prior rotator cuff surgery. There is no demonstrated abnormality of the visualized soft tissue structures of the upper abdomen. RAD/Chest PA and Lateral IMPRESSION: Hyperinflation. No acute abnormality is seen. Electronically Signed: Toni Duncan MD at 9:34 EST ,
== END | disposition home or self-care (01) ==
LOC: MTRAD 09:00
PROVIDERS: PCP Internal Medicine; Referring Provider Physician Assistant Surgical; Visit Provider Physician Assistant Surgical
DX: J18.9 Pneumonia, unspecified organism (principal)
CPT/HCPCS: 71046

== ENCOUNTER → 2023-08-05 | Outpatient (CLI) | payer MEDICARE, OTHER, SELFPAY ==
--- NOTE | 2023-08-05 08:00 | CDU_ITS ---
Reason For Study: Abnormal Screening Rt. Velocities/BP Lt. Velocities/BP Prox CCA 125.3/17.5 cm/sec. Prox CCA 139.6/32.0 cm/sec. Mid CCA 107.0/24.8 cm/sec. Mid CCA 111.1/29.9 cm/sec. Dist CCA 128.9/24.8 cm/sec. Dist CCA 78.1/16.7 cm/sec. Prox ICA 137.4/32.0 cm/sec. Dist ICA 79.0/24.8 cm/sec. Mid ICA 113.3/32.0 cm/sec. Mid ICA 93.3/26.4 cm/sec. Dist ICA 77.7/22.5 cm/sec. Prox ICA 79.0/21.7 cm/sec. Rt. ICA/CCA = 1.3. Lt. ICA/CCA = 0.8. Prox ECA 419.2/47.8 cm/sec. Prox ECA 119.8/17.5 cm/sec. Rt. Vert. 65.0/15.7 cm/sec. Lt. Vert. 46.8/10.6 cm/sec. Right Extracranial There is heterogeneous, irregular atherosclerotic plaque noted in the right common carotid artery. There is heterogeneous, irregular atherosclerotic plaque noted in the right internal carotid artery. There is heterogeneous, irregular atherosclerotic plaque noted in the right external carotid artery. Antegrade flow is noted in the right vertebral artery. Left Extracranial There is homogeneous, smooth atherosclerotic plaque noted in the left common carotid artery. There is heterogeneous, irregular atherosclerotic plaque noted in the left internal carotid artery. There is heterogeneous, irregular atherosclerotic plaque noted in the left external carotid artery. Antegrade flow is noted in the left vertebral artery. Procedure Carotid Duplex [id number]. This is a Carotid Duplex examination using B-mode, color flow and specral Doppler. The exam was diagnostic. VL/Carotid Duplex Ultrasound Interpretation Summary Irregular calcific plaque with shadowing at the right proximal internal and ext ernal carotid arteries. 50 to 69% stenosis of the right internal carotid Greater than 50% stenosis of the right external carotid Irregular calcific plaque at the proximal left internal and external carotid ar jolanta Less than 50% stenosis of the left internal carotid artery Less than 50% stenosis of the left external carotid artery Patent and antegrade vertebral arteries bilaterally There does not appear to be progression of disease from previous examination of May 19, 2022 Ordering Physician: Veena Feliciano Referring Physician: Veena Feliciano Performed By: Nando Feliz RVT
== END | disposition home or self-care (01) ==
LOC: CVS 07:58
PROVIDERS: PCP Internal Medicine; Referring Provider Internal Medicine; Visit Provider Internal Medicine
DX: I65.23 Occlusion and stenosis of bilateral carotid arteries (principal)
CPT/HCPCS: 93880

== ENCOUNTER 2023-08-08 07:30 | Outpatient (RCR) | payer MEDICARE, OTHER, SELFPAY ==
--- NOTE | 2023-02-11 09:30 | HP.PTEVAL_ITS ---
Patient's Visit Information Visit Information Visit Information: LAUREN KELLY is a 72 year old M referred to Physical Therapy by MARJORIE DAY with a diagnosis of Lumbar fusion , laminectomy mid december. Date of Evaluation: 02/11/23 Physical Therapist: Tulio Peter, DPT, OCS, CSCS Visit Plan Frequency: 3x /Week Duration: 3 Months Plan: 3x/week for 8-12 weeks for(noo bending twisting lifting until early March) 1. start ankle eversion and DF strength to HEP, start gym based isometric core , and UE adn LE strength ex to I. NRS sciatic. 2. Gait training balance and diminished AD as safety allows. 3. ice as needed. Subjective Subjective: H/o back pain and leg numbness and weakness. Lost control of bowels in early December and had fusion and laminectomies of lumbar spine mid December after showing cauda equina signs. Spent two weeks at [facility] then [facility] for two weeks. After surgery walked better immediately and much less aakash n and control of bowels. Using wh walker to get around, prior to December did not need AD, sometimes cane. Sleeping Well. Needs to build up strength. Released to swim last Week and been in pool 3x. Walking and leg movements in pool. Other exercises : marching, hiip abduction, ext hip, stand on heels(can't do toes yet), Pain in the last week 3/10 constant in LB from surgical site, has some R quad and lateral leg pain whcih is new. Basic ADLs: dress, bathroom, shower self I, has walk in shower and shower chair. Can get shoes and socks on No BLT is precaution, no bending twisting or lifting. Walking, golf, workshop woodworking are main goals. 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 Standing balance is poor without AD. Unable to walk without AD at this time due to pain in R lateral leg. Incision is posterior and healed well without redness or swelling or excessive scarring. + slump and SLR R >L pt does well with avoiding bending and twisting today, able to get to feet by crossing legs(R tighter than L) and avoid FW bending. hip aROM WFL, knees WFL, ankles weak on R and eversion and PF against gravity are limited, PROM WFL. reflexes 0/3 patella dn achilles R and 1/3 L. Sensation LE WNL to gross lgiht touch. Strength eversion 3- on R and 3+ L, DF 3+, PF 3 R and 3+ L. LB AROM not [id number] today due to fusion. Balance/Special Test Scores Oswestry Low Back Score: 26 Goals Goal 1:: ST : pain 0-1/10 at all times and 90% better Goal Time Frame: 4-6 Weeks Goal 2:: ST: I appropriate home isometric strength program for core and postural and LE gym strength. Goal Time Frame: 4-6 Weeks Goal 3:: LT: Walk without AD in community safe adn I Goal Time Frame: 8-12 Weeks Goal 4:: Steps reciprocal with one rail I Goal Time Frame: 8-12 Weeks Goal 5:: Return to work in [employer] and [employer] Goal Time Frame: 8-12 Weeks Rehabilitation Potential Physical Therapy Diagnosis: limited mobility and function after lumbar fusion, weakness. Rehabilitation Potential: Fair Anticipated Interventions Patient/Client Instruction: Educate patient on: Condition and Plan of Care For the Purpose of:: To decrease pain, To increase ROM, To improve muscle performance and motor function, To increase tolerance to activity/condition/position, To improve ability of physical actions for home/community/work/leisure and To improve gait and locomotor functions Therapeutic Exercise to Include: Strength training, Endurance training, Balance training, Postural training, Flexibilty training, Passive ROM and Active ROM For the Purpose of:: To decrease pain, To increase ROM, To improve nutrient delivery to tissue, To improve muscle performance and motor function, To increase tolerance to activity/condition/position and To decrease level of supervision to perform tasks Cryotherapy (ice pack, ice massage): Yes For the Purpose of:: To decrease swelling/inflammation Text: Thank you for the opportunity to evaluate your patient. For Medicare and Medicare HMO plans, please review the plan of care and approve it. It will need to be FAXED BACK to us at [phone] for Medicare purposes. For Medicare only, by signing this I certify the plan of care. Please let me know if there are questions or concerns regarding this plan of care. Physician Signature: Date:
--- NOTE | 2023-03-21 10:10 | HP.PTREVAL_ITS ---
Re-Evaluation Intro: MARJORIE DAY, It has been my pleasure to treat LAUREN KELLY over the last 16 visits for Lumbar fusion, laminectomy mid december. Please see the progress note below for an update on the physical therapy plan of care! Subjective Subjective: Strength is really improving. steps are easy and does not need step to get into car. Has gone back to [employer]. Walking 30 minutes outside really well. Can now walk at [employer] for 60 minutes without a problem. Hardly has any pain in back during day. Not taking pain pills. Sleep is up and down. To doctor tomorrow. Wants to bend , lift and twist. will see doc tomorrow to find out. wants to golf in spring. Objective Objective/Function: 24# R ankle PF and 28 # L, both weak and unable to heel raise. Df is 40# B today. Walks without push off but without AD I short distances today for FGA. uses cane on steps and rail up with L only as R is too weak, down with either. r obviously weaker funcitonally. Pt is low pain level and happy with progress, still apropriate for therapy for strength functional progression, gait and bend/twist when allowed by doctor. All unmet goals still appropriate for 4 more weeks. Plan Plan Plan: 3x/week for 4 weeks for funcitonal leg strength steps and gait with knee ext and PF. steps ups, , pt to do gym exercises on his own and ask questions as needed. may start bend and twist gentlyu if allowed by doctor after 03/22 visit. Gait training for push off and balance with turns etc. Balance/Gait/Functional tests Balance/Special Test Scores Oswestry Low Back Score: 9 Goals Goals Goal 1:: ST : pain 0-1/10 at all times and 90% better Goal Time Frame: 4-6 Weeks Goal Progress: Goal Met Goal 2:: ST: I appropriate home isometric strength program for core and postural and LE gym strength. Goal Time Frame: 4-6 Weeks Goal Progress: Goal Met Goal 3:: LT: Walk without AD in community safe adn I Goal Time Frame: 8-12 Weeks Goal Progress: Progressing, approp Goal 4:: Steps reciprocal with one rail I Goal Time Frame: 8-12 Weeks Goal Progress: needs can and R weak Goal 5:: Return to work in golf and [employer] Goal Time Frame: 8-12 Weeks Goal Progress: Progressing Anticipated Interventions Anticipated Interventions Patient/Client Instruction: Educate patient on: Condition and Plan of Care For the Purpose of:: To decrease pain, To increase ROM, To improve muscle performance and motor function, To increase tolerance to activity/condition/position, To improve ability of physical actions for home/community/work/leisure and To improve gait and locomotor functions Therapeutic Exercise to Include: Strength training, Endurance training, Balance training, Postural training, Flexibilty training, Passive ROM and Active ROM For the Purpose of:: To decrease pain, To increase ROM, To improve nutrient delivery to tissue, To improve muscle performance and motor function, To increase tolerance to activity/condition/position and To decrease level of supervision to perform tasks Cryotherapy (ice pack, ice massage): Yes For the Purpose of:: To decrease swelling/inflammation Re-Evaluation Ending Re-evaluation ending: Please do not hesitate to contact me at [phone] by phone or Fax: if you have questions or concerns regarding this new plan of care! Sincerely, Tulio Peter, DPT, OCS, CSCS
--- NOTE | 2023-04-22 09:53 | HP.PTREVAL ---
Re-Evaluation Intro: MARJORIE DAY, It has been my pleasure to treat LAUREN KELLY over the last 27 visits for Lumbar fusion, laminectomy mid december. Please see the progress note below for an update on the physical therapy plan of care! Subjective Subjective: Pain is not a big issue. Can walk long ways and fatigue limits more than any pain. Getting stronger. Walking more at home without AD. No falls and much safer. Getting out of chair is technique but can do it with multiple attempts. Wants 2-3 weeks of PT. Doing machine ex 3x/week. Doing band exercises at home seated and step ups. doing steps at home 2x/day(9 inch steps). Uses railing. Sleep is OK mosit of time. Some pulling in back but not bad and can roll over and get rid of it. Would still be unable to cut trees down or rake. Can drive now. Hung lights in basement yesterday without a problem. Wants to get better at balance and getting out of chair and stability. Objective Objective/Function: Pt needs VC for FW weight shift to get out of cahir without UE and multiple attempts, fearful of FW weight shift due to continued weakness in calves and inability to heel raise either leg. Steps reuqire B UE with R due to weakness and can do L LE with one rail. Tends to posterior weight shift in stance especially when tired and becomes more antalgic R weakness as he walks further. Walking without AD with therapist today I for 300 feet,SBA at times. Pt will defintiely have deficits due to plantar wekaness and R LE weakness and educate don that fact today. despite that, he has come al long way and is appropriate to finish out original 12 week POC. Fair prognosis Plan Plan Plan: 3x/week for 3 weeks to fine tune final HEP(pt to continue gym ex on own, please ensure weight shift ex, sit to stand, step ups, funcitonal balance in a good gym/home based ex program to include as safety allows, golf swing weight shifts and wood shop simulation. 3x/week for likely d/c in mid . To doctor in June. Balance/Gait/Functional tests Balance/Special Test Scores Functional Gait Assessment Score: 20 % Disability: 33.3400 Oswestry Low Back Score: 7 Goals Goals Goal 1:: ST : pain 0-1/10 at all times and 90% better Goal Time Frame: 4-6 Weeks Goal Progress: Goal Met Goal 2:: ST: I appropriate home isometric strength program for core and postural and LE gym strength. Goal Time Frame: 4-6 Weeks Goal Progress: Goal Met Goal 3:: LT: Walk without AD in community safe adn I Goal Time Frame: 8-12 Weeks Goal Progress: home, not community. 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 Goal Time Frame: 2-4 Weeks Goal Progress: NEW GOAL Anticipated Interventions Anticipated Interventions Patient/Client Instruction: Educate patient on: Condition and Plan of Care For the Purpose of:: To decrease pain, To increase ROM, To improve muscle performance and motor function, To increase tolerance to activity/condition/position, To improve ability of physical actions for home/community/work/leisure and To improve gait and locomotor functions Therapeutic Exercise to Include: Strength training, Endurance training, Balance training, Postural training, Flexibilty training, Passive ROM and Active ROM For the Purpose of:: To decrease pain, To increase ROM, To improve nutrient delivery to tissue, To improve muscle performance and motor function, To increase tolerance to activity/condition/position and To decrease level of supervision to perform tasks Cryotherapy (ice pack, ice massage): Yes For the Purpose of:: To decrease swelling/inflammation Re-Evaluation Ending Re-evaluation ending: Please do not hesitate to contact me at [phone] by phone or if you have questions or concerns regarding this new plan of care! Sincerely, Tulio Peter, DPT, OCS, CSCS
--- NOTE | 2023-05-13 09:26 | HP.PTREVAL ---
Re-Evaluation Intro: MARJORIE DAY, It has been my pleasure to treat LAUREN KELLY over the last 36 visits for Lumbar fusion, laminectomy mid december. Please see the progress note below for an update on the physical therapy plan of care! Subjective Subjective: Most of pain at incision intermittent /. Standing a little worse, managed with tylenol. Activities at home are pretty normal and much better than previously. Has walk in shower and has chair. Wants to golf. To doctor in June. Has swung golf club but loses balance, Will continue gym workout adn balance exercises out by the parallel bars. Will continue band exercises for ankles. Has brace for R ankle and sees Vic and will get another brace. Objective Objective/Function: Using cane to ambulate clinic today mod I. Brace on R ankle. Steps with railing and cane I preferring to use L but can do either. Imrpoving balance and strength. Ankle strength still weak and avoiding forefoot push off and on steps due to weakness. Thsi may not improve. Plan Plan Plan: F/U in two months after been workoing out for attempted golf swing and possible therapy to work toward golf seing for spring. Balance/Gait/Functional tests Balance/Special Test Scores Functional Gait Assessment Score: 20 % Disability: 33.3400 Oswestry Low Back Score: 14 Goals Goals Goal 1:: confidently and comfortably swing golf club funcitonally Goal Time Frame: 8-12 Weeks Goal Progress: NEW GOAL Goal 2:: ST: I appropriate home isometric strength program for core and postural and LE gym strength. Goal Time Frame: 4-6 Weeks Goal Progress: Goal Met Goal 3:: LT: Walk without AD in community safe adn I Goal Time Frame: 8-12 Weeks Goal Progress: needs cane Goal 4:: Steps reciprocal with one rail I Goal Time Frame: 8-12 Weeks Goal Progress: prefers step to but can Goal 5:: Return to work in golf and [employer] Goal Time Frame: 8-12 Weeks Goal Progress: Progressing Goal 6:: Final I weight shift and functional HEP to match gym ex for prophyulaxis and continued improvement. Goal Time Frame: 2-4 Weeks Goal Progress: Goal Met Anticipated Interventions Anticipated Interventions Patient/Client Instruction: Educate patient on: Condition and Plan of Care For the Purpose of:: To decrease pain, To increase ROM, To improve muscle performance and motor function, To increase tolerance to activity/condition/position, To improve ability of physical actions for home/community/work/leisure and To improve gait and locomotor functions Therapeutic Exercise to Include: Strength training, Endurance training, Balance training, Postural training, Flexibilty training, Passive ROM and Active ROM For the Purpose of:: To decrease pain, To increase ROM, To improve nutrient delivery to tissue, To improve muscle performance and motor function, To increase tolerance to activity/condition/position and To decrease level of supervision to perform tasks Cryotherapy (ice pack, ice massage): Yes For the Purpose of:: To decrease swelling/inflammation Re-Evaluation Ending Re-evaluation ending: Please do not hesitate to contact me at [phone] by phone or if you have questions or concerns regarding this new plan of care! Sincerely, Tulio Peter, DPT, OCS, CSCS
--- NOTE | 2023-07-11 09:03 | HP.PTREVAL_ITS ---
Re-Evaluation Intro: MARJORIE DAY, It has been my pleasure to treat LAUREN KELLY over the last 37 visits for Lumbar fusion, laminectomy mid december. Please see the progress note below for an update on the physical therapy plan of care! Subjective Subjective: Seen doctor for 6 month f/u and doing well, gave new script for helping get back to golf. No pain. Walking on flat surfaces without AD and doc says he should not need it in 6 months. Climbing steps easier but ten inch step into house is still a challenge. Has been out in [employer] shop and no concerns out there. Objective Objective/Function: Avoids FW weight shift on steps and uses hands to pull forward, lands on heel desending, can correct these things with VC. Still weak and unable to heel raise B even with support, using GTB at home 3x10. Golf swing at 25% with very little pelvic rotation but I and safe x 15 today. Walks without cane I on firm slat surface. New goals, fair prognosis, weekly progressions HEP/function Plan Plan Plan: weekly x 3 months as needed. Work on steps, golf swing , rotations and flexion ROM and strength progression and PF strength. Balance/Gait/Functional tests Balance/Special Test Scores Functional Gait Assessment Score: 20 % Disability: 33.3400 Oswestry Low Back Score: 14 Goals Goals Goal 1:: confidently and comfortably swing golf club funcitonally Goal Time Frame: 8-12 Weeks Goal Progress: appropriate til May Goal 2:: steps reciprocally with two rail with FW weight shift and just balance on hands, no pulling and forefoot strike descending. 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 Goal Time Frame: 2-4 Weeks Goal Progress: Goal Met Anticipated Interventions Anticipated Interventions Patient/Client Instruction: Educate patient on: Condition and Plan of Care For the Purpose of:: To decrease pain, To increase ROM, To improve muscle performance and motor function, To increase tolerance to activity/condition/position, To improve ability of physical actions for home /community/work/leisure and To improve gait and locomotor functions Therapeutic Exercise to Include: Strength training, Endurance training, Balance training, Postural training, Flexibilty training, Passive ROM and Active ROM For the Purpose of:: To decrease pain, To increase ROM, To improve nutrient delivery to tissue, To improve muscle performance and motor function, To increase tolerance to activity/condition/position and To decrease level of supervision to perform tasks Cryotherapy (ice pack, ice massage): Yes For the Purpose of:: To decrease swelling/inflammation Re-Evaluation Ending Re-evaluation ending: Please do not hesitate to contact me at [phone] by phone or if you have questions or concerns regarding this new plan of care! Sincerely, Tulio Peter, DPT, OCS, CSCS
== END 2023-08-08 19:00 | disposition home or self-care (01) ==
LOC: PT 07:30
PROVIDERS: PCP Internal Medicine
DX: M43.16 Spondylolisthesis, lumbar region (principal)
CPT/HCPCS: 97110; 97162; 97164; 97530

== ENCOUNTER 2023-08-15 07:19 | Outpatient (RCR) | payer MEDICARE, OTHER, SELFPAY ==
--- NOTE | 2023-09-16 14:39 | HP.PTDCSUM ---
Discharge Summary D/C summary: It has been my pleasure to treat LAUREN KELLY referred by Dr. Veena Feliciano DO, with the diagnosis of Lumbar fusion laminectomy mid December for a total of 47 visit(s). Discharge Date: 09/16/23 Please see the following information for a summary of their discharge status. Subjective Subjective: Pain in L LB and L leg gives out. Not sure why he has days like that but they are not getting less frequent. Not sure why that was bad. fell on Tuesday tripping on shoe that came off. One month ago got worse LB pain into L leg and feeling weaker all of a sudden in L leg. That was my strong leg. Let doctor know and has an appointment next Tuesday with surgeon. Overall frustrated with the weakness adn giving out in L LE. Did see Dr. Hodge for cellulitis in the L leg but that has cleared up but weakness/pain has not gotten better. needing to use cane now. had xrays of LB and did not find anything. Sleep Is Ok. for 8-9 hours. Doing workout in gym but has had to back off since it has been harder to walk safely. Does ride stationary bike a bit. Activities at home are not great. has been outside doing some stuff in yard. He did fall doing this over the weekend. has been able to drive adn get outside a bit and it is slow and cautious. Shelved golf swing for a bit until he gets this new weakness/pain looked at. Taking 4 tylenol a day now and was off of that, will see Sherif 09/29. Pain Low Back: Pain Intensity (Out of 10): 4 Objective Objective/Function: L SB of lumbar max limited and pianful, R SB OK, ext mod limited adn painfree, flexion stiff but abkle 34# R ankle PF adn 17# L PF + slump L. Walks with cane mod I but poor motor control L HS and PF causing L knee to slam into extension at end of stance. Steps are very weka on L and requires two rails with L and one with R. PF strength is worse on L today then 3 months ago despite his hard work. Unable to flex L hip in sitting without pain LB and feels very weak. 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 he worsened without reason a month ago and is still worse. not progressing toward goals and f/u with surgeon appropriate. d/c PT. D/C Information Discharge Comments: Pt back to doctor due to unusual findings. Happy to see after if found appropriate by physician. d/c sentence: If there are questions or concerns regarding this patient's physical therapy, please feel free to call me at [phone]. Thank you for the referral of this patient. Sincerely, Tulio Peter, DPT, OCS, CSCS Balance/Gait/Functional tests Balance/Special Test Scores Oswestry Low Back Score: 28
== END 2023-08-15 19:00 | disposition home or self-care (01) ==
LOC: PT 07:19
PROVIDERS: PCP Internal Medicine; Referring Provider Internal Medicine; Visit Provider Internal Medicine
DX: M43.16 Spondylolisthesis, lumbar region (principal)
CPT/HCPCS: 97110

== ENCOUNTER → 2023-08-19 | Outpatient (CLI) | payer MEDICARE, OTHER, SELFPAY ==
--- NOTE | 2023-08-19 13:56 | VDLE_ITS ---
Reason For Study: Left leg swelling RIGHT LEFT CFV is compressible, spontaneous, phasic, GSV is normal. competent and demonstrates normal CFV is compressible, spontaneous, phasic, augmentation. competent, and demonstrates normal Procedure augmentation. This is a venous duplex using B-mode, color FV is compressible, spontaneous, phasic, flow and spectral Doppler. competent and demonstrates normal Exam performed in department. augmentation. A preliminary report was called and/or faxed POP V is compressible, spontaneous, phasic, to Dr. Feliciano. competent and demonstrates normal augmentation. T/P Trunk is compressible. PTV is compressible. LT PerV is compressible. VL/Venous Duplex US, Unilateral Interpretation Summary There is no evidence of left lower extremity deep vein thrombosis. Left great s aphenous vein appears patent and compressible segmentally. Soft tissue edema noted left lower extremi ty. Normal flow patterns right common femoral vein Ordering Physician: Veena Feliciano Referring Physician: Veena Feliciano Performed By: China Shrestha RVT
== END | disposition home or self-care (01) ==
LOC: CVS 13:56
PROVIDERS: PCP Internal Medicine; Referring Provider Internal Medicine; Visit Provider Internal Medicine
DX: M79.89 Other specified soft tissue disorders (principal)
CPT/HCPCS: 93971

== ENCOUNTER → 2023-10-21 | Outpatient (CLI) | payer MEDICARE, OTHER, SELFPAY ==
[2023-10-21 12:48] LABS: Absolute Lymphocyte Count 1.01 X10^3/uL (0.83-4.51); Absolute Neutrophil Count 5.4 X10^3/uL (2.0-7.7); Basophil# 0.01 X10^3/uL; Basophil% 0.1 % (0-1); Color, Urine Yellow (Yellow); Eosinophil# 0.18 X10^3/uL; Eosinophils% 2.4 % (0-5); Glucose, Dipstick Normal (Normal); Hemoglobin 12.7 g/dL (13.0-16.5); Ketone-Dipstick Negative (Negative); Leukocyte Esterase-Dipstick Negative /ul (Negative); Lymphocyte # 1.01 X10^3/ul (0.83-4.51); Lymphocyte % 13.7 % (19-41); Mean Corpuscular Hgb 27.7 pg (27.0-32.0); Mean Corpuscular Volume 89.3 fL (80-94); Mean Platelet Vol. 11.3 fl (6.2-12.0); Monocyte# 0.78 X10^3/uL; Monocyte% 10.6 % (0-10); NRBC Flagged by Analyzer 0 % (0-5); Neutrophil # 5.35 X10^3/uL (2.7-7.7); Neutrophil % 72.9 % (47-70); Nitrite-Dipstick Negative (Negative); Occult Blood-Urine Negative /ul (Negative); Platelet Count 224 K/mm3 (150-450); Protein-Dipstick 15 mg/dl (Negative); RBC Distribution Width CV 14.6 % (11.6-14.6); RBC Distribution Width SD 48.2 fl (35.1-43.9); Red Blood Count 4.59 M/mm3 (4.6-6.2); Specific Gravity, Urine 1.015 (1.002-1.030); Urine Bilirubin Dipstick Negative (Negative); Urine Clarity Clear (Clear); Urine Urobilinogen 1 mg/dl (Normal); White Blood Count 7.4 K/mm3 (4.4-11.0)
[2023-10-21 13:09] LABS: Vitamin D,25 Hydroxy 70.2 ng/mL
[2023-10-21 13:10] LABS: ALB/GLOB Ratio 1.2 RATIO (0.9-2.4); AST(SGOT) 37 U/L (15-37); Alanine Aminotransfer ALT/SGPT 46 U/L (16-61); Albumin, Serum 3.7 g/dL (3.2-5.0); Alkaline Phosphatase 101 U/L (45-117); Anion Gap 8 (5-15); BUN 28 mg/dL (7-18); BUN/Creat Ratio 31.4 RATIO (10-20); Calcium,Total 9.5 mg/dL (8.5-10.1); Chloride 112 mmol/L (98-107); Cholesterol 145 mg/dL (200); Creatinine, Serum 0.89 mg/dL (0.70-1.30); EST Glomerular Filtration Rate 88 mL/min (>60); Est Glom Filt Rate - Afr Amer 107 mL/min (>60); Glucose 101 mg/dL (74-106); High Density Lipoprotein 58 mg/dL; Protein, Total 6.7 g/dL (6.4-8.2); Sodium Level 142 mmol/L (136-145); Triglycerides 142 mg/dL; Very Low Density Lipoprotein 28 mg/dL (5-40)
[2023-10-21 13:21] LABS: Microalbumin,Random Urine 67.4 mg/L (NO RANGE EST.); Microalbumin:Creatinine Ratio 67.9 mg/g CRE (<30 mg/g CRE)
[2023-10-21 13:48] LABS: Hemoglobin A1c 5.5 % (3.8-5.6)
[2023-10-25 15:08] LABS: ANTINUCLEAR ANTIBODIES DIRECT Negative (Negative); Anti-dsDNA Ab 1 IU/mL (0-9)
== END | disposition home or self-care (01) ==
LOC: MTLAB 09:49
PROVIDERS: PCP Internal Medicine; Referring Provider Internal Medicine; Visit Provider Internal Medicine
DX: E11.29 Type 2 diabetes mellitus with other diabetic kidney complication (principal); I65.29 Occlusion and stenosis of unspecified carotid artery; E55.9 Vitamin D deficiency, unspecified; E78.00 Pure hypercholesterolemia, unspecified; L30.8 Other specified dermatitis
CPT/HCPCS: 36415; 80053; 80061; 81002; 82043; 82306; 82570; 83036; 85025; 86038; 86225

== ENCOUNTER 2023-11-21 08:00 | Outpatient (RCR) | payer MEDICARE, OTHER, SELFPAY ==
--- NOTE | 2023-10-03 10:00 | HP.PTEVAL_ITS ---
Patient's Visit Information Visit Information Visit Information: LAUREN KELLY is a 73 year old M referred to Physical Therapy by DANIEL England with a diagnosis of spondylolisthesis L/S s/p fusion 01/03/23. Date of Evaluation: 10/03/23 Physical Therapist: Tulio Peter, DPT, OCS, CSCS Visit Plan Frequency: 2x /Week Duration: 4-6 Weeks Plan: 2x/week for 4-6 weeks...Pt will continue in home pool daily. 1. Please go through his I gym workout and ensure it is challenging L leg properly and tweak as needed with new instructions in first 3-4 visits. 2. funcitonal step up to 9 inches, FW weight shift on steps and transfers, aggressive L LE strengthenin Pt will workout in gy another time per week I. Subjective Subjective: Had fusion and PT on 01/03/2023 and for months after. All of a sudden got weak and painful in July for no explainable reason. PT did not help, sent to doctor who did x ray and was not worried about the integrity and could not explain. L leg feels weak. All info from previous deyvi still appropriate, has been switching cane and trying to use both legs on steps, short steps are no problem with cane and a rail, 8 inch step is weak on L leg. Pain level is 2/10 first thing in am. Takes 2 tylenol but not really bad. Since his last session has been taking it regularly. Swam in pool at e yesterday and doing exer cises. [place] the rest of the day. Will do that daily. Started back in therapy and doing machines regularly around a vacation. Did a lot of walking camping without problem. Fell one time last week on grass when walking stick sank in grass on soft ground. Sleep is OK. Wants to golf. Needs arms of chair to get out of chair safely and did not 3 months ago. workout in gym is somewhat challenging but can tell L leg is weaker than it used ot be. Pain LBP: Pain Intensity (Out of 10): 2 Pain Intensity Range: 0 and 2 Comment: cramps in toes R Objective Objective: Ambulates with cane slowly with poor weight shift and hesitant to fW weight shift. PF R 40# and L 23#, LAQ 60#R and 45# L HSC 50# R and 33# L hip flexion 43# R adn 26# L L weaker now. L/S AROM ext max limited, flexion mod limited, SB mod limited. Had fusion. reflexes0/3 patella and achilles B Sensation WFL to gross light touch B LE, most notably weak in PF , avoids FW weight shift with gait, on steps and exitting chair tending to keep weight posteriorly. Balance/Special Test Scores Oswestry Low Back Score: 10 TUG Test Time Seconds: 14 30 Second Chair Rise Test Seconds: 8 Goals Goal 1:: PF strength L 35# to showi improving strength and help with wweight shift. Goal Time Frame: 4-6 Weeks Goal 2:: 11 30 sec sit to stand to show improving strengt Goal Time Frame: 4-6 Weeks Goal 3:: stand with Fw weight shift so forefoot on ground Goal Time Frame: 4-6 Weeks Goal 4:: up and down steps with one rail and reciprocal Goal Time Frame: 4-6 Weeks Goal 5:: 9 inch step with either foot and one UE Goal Time Frame: 4-6 Weeks Rehabilitation Potential Physical Therapy Diagnosis: weakness in legs limiting confidence with funciton Rehabilitation Potential: Questionable Anticipated Interventions Patient/Client Instruction: Educate patient on: Condition For the Purpose of:: To decrease pain, To improve muscle performance and motor function, To increase tolerance to activity/condition/position, To improve ability of physical actions for home/community/work/leisure and To improve gait and locomotor functions Therapeutic Exercise to Include: Strength training, Flexibilty training, Active ROM and Dynamic Lumbar Stabilization For the Purpose of:: To improve nutrient delivery to tissue, To increase tolerance to activity/condition/position, To improve ability of physical actions for home/community/work/leisure and To improve gait and locomotor functions Text: Thank you for the opportunity to evaluate your patient. For Medicare and Medicare HMO plans, please review the plan of care and approve it. It will need to be FAXED BACK to us at [phone] for Medicare purposes. For Medicare only, by signing this I certify the plan of care. Please let me know if there are questions or concerns regarding this plan of care. Physician Signature: Date:
--- NOTE | 2023-11-21 08:36 | HP.PTDCSUM_ITS ---
Discharge Summary D/C summary: It has been my pleasure to treat LAUREN KELLY referred by Soraya Chan NP-Marquez, with the diagnosis of spondylolisthesis L/S s/p fusion 01/03/23 for a total of 11 visit(s). Discharge Date: 11/21/23 Please see the following information for a summary of their discharge status. Subjective Subjective: Getting stronger and feeling better. Working hard. Swimming and doing a lot of water exercises, Working in the gym and back to regular workout. Walking with cane most places on irregular surface. Gravel requires cane. No AD needed in the house. R ankle brace on or uses cane. Ankle stronger and doing band exercises at home. No giving out in legs. Will go out on golf course next week to chip and putt with friends. Pain LBP: Pain Intensity (Out of 10): 1 Right Ankle: Pain Intensity (Out of 10): 1 Overall Improvement % Improvement: 80 Objective Objective/Function: Much stronger on L leg then at IE. 35# PF, and 10# stronger on hamstring and quad. R ankle still braced and poor strength but able to walk on uneven surface today with cane mod I. Able to walk adn do FGa without cane safely on firm surface. Swings golf club gently I. using forefoot better on sit to stand and with golf swing to help with balance. Goals Goal 1:: PF strength L 35# to showi improving strength and help with wweight shift. Goal Progress: Goal Met Goal 2:: 11 30 sec sit to stand to show improving strengt Goal Progress: Goal Met Goal 3:: stand with Fw weight shift so forefoot on ground Goal Progress: Goal Met Goal 4:: up and down steps with one rail and reciprocal Goal Progress: Goal Met Goal 5:: 9 inch step with either foot and one UE Goal Progress: 2 UE Plan Plan: d/c to [facility] D/C Information Discharge Comments: To doctor in december. d/c sentence: If there are questions or concerns regarding this patient's physical therapy, artis brooks feel free to call me at [phone]. Thank you for the referral of this patient. Sincerely, Tulio Peter, DPT, OCS, CSCS Balance/Gait/Functional tests Balance/Special Test Scores Functional Gait Assessment Score: 21 % Disability: 30.0000 Oswestry Low Back Score: 8 TUG Test Time Seconds: 14 Tug Test: <20 sec.=mostly independent 30 Second Chair Rise Test Seconds: 11 Improvement % Improvement: 80
== END 2023-11-21 08:51 | disposition home or self-care (01) ==
LOC: PT 08:00
PROVIDERS: PCP Internal Medicine; Referring Provider Nurse Practitioner; Visit Provider Nurse Practitioner
DX: M43.16 Spondylolisthesis, lumbar region (principal); M48.061 Spinal stenosis, lumbar region without neurogenic claudication
CPT/HCPCS: 97110; 97161; 97530

== ENCOUNTER → 2024-03-07 | Outpatient (CLI) | payer MEDICARE, OTHER, SELFPAY ==
--- NOTE | 2024-03-07 07:00 | US_ITS ---
INDICATION: - Fatty Liver EXAMINATION: Ultrasound US Abdomen Limited (quadrant) TECHNIQUE: Oleary scale and color doppler imaging was performed of the right upper quadrant. COMPARISON: Prior study dated: 04/26/2023 FINDINGS: LIVER: The liver is enlarged measuring about 19 cm in length and is echogenic in texture. The portal vein is patent with normal hepatopedal flow. No focal hepatic lesion. There is no free fluid. GALLBLADDER AND BILIARY TREE: No shadowing gallstone, pericholecystic fluid or gallbladder wall thickening is demonstrated. The gallbladder wall measures. The proximal common bile duct measures 3.3 mm, which is within normal limits for the patient''s age. Sonographic Snider''s sign: Negative. PANCREAS: The pancreas is suboptimally visualized due to overlying bowel gas. Right kidney: The right kidney measures 10.6 cm in length. The renal cortex measures 1.6 cm. No evidence of hydronephrosis. US/Abdomen Limited IMPRESSION: 1. Hepatomegaly and hepatic steatosis. 2. No evidence of gallstones or biliary dilatation. Electronically Signed: Lele Petersen MD at 15:25 EDT ,
== END | disposition home or self-care (01) ==
LOC: US 07:00
PROVIDERS: PCP Internal Medicine; Referring Provider Internal Medicine; Visit Provider Internal Medicine
DX: K76.0 Fatty (change of) liver, not elsewhere classified (principal)
CPT/HCPCS: 76705

== ENCOUNTER → 2024-05-24 | Outpatient (CLI) | payer MEDICARE, OTHER, SELFPAY ==
--- NOTE | 2024-05-24 10:55 | RAD_ITS ---
INDICATION: cough EXAMINATION/TECHNIQUE: X-RAY - XR Chest 2 Views COMPARISON: January 06, 2024 FINDINGS: LINES/DEVICES: None. LUNGS: No new consolidation, edema or effusion. No pneumothorax. MEDIASTINUM AND CARDIOVASCULAR STRUCTURES: Cardiac silhouette not enlarged. There are sternotomy wires in place. Central airways and mediastinal contour are unremarkable. BONES AND SOFT TISSUES: Unremarkable. RAD/Chest PA and Lateral IMPRESSION: No radiographic evidence of acute cardiopulmonary disease. Electronically Signed: Tabby Cheng MD at 12:06 EST ,
== END | disposition home or self-care (01) ==
LOC: MTRAD 10:54
PROVIDERS: PCP Internal Medicine; Referring Provider Physician Assistant; Visit Provider Physician Assistant
DX: R05.9 Cough, unspecified (principal)
CPT/HCPCS: 71046

== ENCOUNTER → 2024-06-20 | Outpatient (CLI) | payer MEDICARE, OTHER, SELFPAY ==
--- NOTE | 2024-06-20 13:55 | CT_ITS ---
STUDY: CT CHEST WITHOUT CONTRAST REASON FOR EXAM: Male, 74 years old. SEVERE PERS ASTHMA COVID RADIATION DOSAGE (If Supplied By Facility): CTDIvol = ( 17.36 ) mGy, DLP = ( 603.99 ) mGycm TECHNIQUE: Transaxial imaging was performed without the administration of intravenous contrast material. Individualized dose optimization techniques were used for this CT. COMPARISON: Chest x-ray dated May 24, 2024 FINDINGS: Thoracic inlet structures: THYROID: No thyroid lesions. Ultrasound as the goal standard for thyroid imaging if there are any concerns in this region. Esophagus is unremarkable. FINDINGS: No demonstrated consolidation. No pulmonary edema pleural effusion is present. Redemonstration of mild to moderate interstitial fibrotic changes of the lungs. There is no demonstrated pleural abnormality. No visualized nodules or masses. Mild cystic emphysematous changes are present. Sternal cerclage wires and vascular clips are present from a prior sternotomy and coronary artery bypass graft procedure (CABG). Normal heart size. No pericardial effusion is present. Subcentimeter reactive mediastinal lymphadenopathy is present.. Normal visualized pulmonary arteries. There is atherosclerotic calcification of the aortic arch with tortuosity. There are diffuse degenerative changes of the visualized thoracic spine. Normal visualized ribs, clavicles, and shoulders. There is no demonstrated acute abnormality of the visualized soft tissue structures of the upper abdomen. Chronic L1 compression deformity. CT/Chest without Contrast IMPRESSION: 1. COPD and interstitial fibrosis Electronically Signed: Abdi Galan MD at 17:19 EST ,
== END | disposition home or self-care (01) ==
LOC: CT 13:55
PROVIDERS: PCP Internal Medicine; Referring Provider Internal Medicine Pulmonary Disease; Visit Provider Internal Medicine Pulmonary Disease
DX: U07.1 COVID-19 (principal); J45.50 Severe persistent asthma, uncomplicated
CPT/HCPCS: 71250

== ENCOUNTER → 2024-09-20 | Outpatient (CLI) | payer MEDICARE, OTHER, SELFPAY ==
--- NOTE | 2024-09-20 06:25 | RAD_ITS ---
PROCEDURE: Right knee radiographs, four views 09/20/2024 REASON FOR EXAM: Pain TECHNIQUE: Four views of the right knee were obtained. COMPARISON: None available FINDINGS: Four views of the right knee were obtained. The bones are osteopenic. No acute fracture or dislocation of either knee. Trace right suprapatellar effusion. Mild prepatellar soft tissue swelling. Moderate degenerative change of the lateral and patellofemoral compartments. Severe medial compartment narrowing. RAD/Knee 4 or More Views IMPRESSION: Osteopenia. No acute bony abnormality of the right knee. Moderate/severe tricompartmental degenerative changes, greatest involving the m edial compartment. Trace suprapatellar effusion and mild prepatellar soft tissue swelling. Reading Location: [facility]
--- NOTE | 2024-09-20 06:25 | RAD_ITS ---
PROCEDURE: Left knee radiographs, four views 09/20/2024 REASON FOR EXAM: Left knee pain TECHNIQUE: Four views of the left knee obtained COMPARISON: None available FINDINGS: Four views of the left knee were obtained. Bones are osteopenic. No acute fracture or dislocation of the left knee. Moderate tricompartmental degenerative changes, greatest involving the medial compartment. Several surgical clips project over the medial soft tissues. No sizable left knee effusion. RAD/Knee 4 or More Views IMPRESSION: Osteopenia. No acute bony abnormality of the left knee. Moderate tricompartmental degenerative changes, greatest involving the medial c ompartment. Reading Location: [facility]
--- NOTE | 2024-09-20 16:45 | STRESSREP ---
Stress Test Report Pharmacologic myocardial perfusion stress test. 74-year-old male with a history of coronary artery disease Resting EKG demonstrates sinus bradycardia with a rate of 55 bpm. Resting blood pressure is 118/70 mmHg. 0.4 mg of regadenoson was infused per usual protocol followed by rapid intravenous saline flush injection. Continuous EKG monitoring was performed. The maximum heart rate was 70 bpm which was 48% of max impacted heart rate the maximum workload was 1 metabolic equivalent. At rest there were no ST or T wave changes noted to suggest ischemia and at peak infusion nonspecific ST changes were noted which did not meet the criteria for ischemia. No clinical angina is noted. The final blood pressure was 118/70 mmHg. Myocardial perfusion protocol. 14.6 mCi of technetium 99m sestamibi was injected at rest. 0.4 mg of regadenoson was infused per usual protocol. At peak infusion 43.7 mCi of technetium 99m sestamibi was injected stress images were obtained stress and rest images were reconstructed and compared in the short axis vertical long and horizontal long axis. Gated images were also obtained. Perfusion SPECT analysis: Review of the stress images demonstrate normal uptake of tracer noted in all areas of the myocardium. The resting images similar demonstrated normal uptake of tracer noted in all areas of the myocardium. No areas of reversibility are noted to suggest ischemia and no previous infarct is noted. Gated SPECT analysis: The gated ejection fraction is 77%. Conclusion: Normal pharmacologic myocardial perfusion stress test. Preserved ejection fraction.
== END | disposition home or self-care (01) ==
LOC: CVS 06:03
PROVIDERS: PCP Internal Medicine; Referring Provider Internal Medicine Cardiovascular Disease; Visit Provider Internal Medicine Cardiovascular Disease
DX: I25.10 Atherosclerotic heart disease of native coronary artery without angina pectoris (principal); Z95.1 Presence of aortocoronary bypass graft; M25.561 Pain in right knee; M25.562 Pain in left knee
CPT/HCPCS: 73564; 78452; 93017; A9500; A4216; J2785

== ENCOUNTER → 2024-09-27 | Outpatient (CLI) | payer MEDICARE, OTHER, SELFPAY ==
--- NOTE | 2024-09-27 08:01 | CDU_ITS ---
Reason For Study Reason For Study: Stenosis Rt. Velocities/BP Lt. Velocities/BP Prox CCA 82.5/7.8 cm/sec. Prox CCA 107.6/17.1 cm/sec. Mid CCA 94.9/20.1 cm/sec. Mid CCA 115.6/6.0 cm/sec. Dist CCA 103.6/11.3 cm/sec. Dist CCA 97.4/17.0 cm/sec. Prox ICA 102.6/28.9 cm/sec. Prox ICA 65.4/15.1 cm/sec. Mid ICA 77.0/21.3 cm/sec. Mid ICA 67.9/17.6 cm/sec. Dist ICA 68.6/22.7 cm/sec. Dist ICA 74.0/17.6 cm/sec. Rt. ICA/CCA = 1.1. Lt. ICA/CCA = 0.6. Prox ECA 285.0/18.8 cm/sec. Prox ECA 117.4/13.3 cm/sec. Rt. Vert. 53.3/11.6 cm/sec. Lt. Vert. 48.7/8.0 cm/sec. Right Extracranial There is heterogeneous, irregular atherosclerotic plaque noted in the right common carotid artery. There is heterogeneous, irregular atherosclerotic plaque noted in the right internal carotid artery. The atherosclerotic plaque causes acoustic shadowing. There is heterogeneous, irregular atherosclerotic plaque noted in the right external carotid artery. The atherosclerotic plaque causes acoustic shadowing. Antegrade flow is noted in the right vertebral artery. Left Extracranial There is homogeneous, smooth atherosclerotic plaque noted in the left common carotid artery. There is heterogeneous, irregular atherosclerotic plaque noted in the left internal carotid artery. The atherosclerotic plaque causes acoustic shadowing. There is heterogeneous, irregular atherosclerotic plaque noted in the left external carotid artery. Procedure Carotid Duplex 68019. This is a Carotid Duplex examination using B-mode, color flow and specral Doppler. Exam performed in department. VL/Carotid Duplex Ultrasound Interpretation Summary Mild (<50%) stenosis right extracranial internal carotid. Mild (<50%) stenosis left extracranial internal carotid. Patent and antegrade vertebrals bilaterally. Ordering Physician: Veena Feliciano Referring Physician: Veena Feliciano Performed By: Kristin Rivera, LISA
== END | disposition home or self-care (01) ==
LOC: CVS 08:00
PROVIDERS: PCP Internal Medicine; Referring Provider Internal Medicine; Visit Provider Internal Medicine
DX: I65.23 Occlusion and stenosis of bilateral carotid arteries (principal)
CPT/HCPCS: 93880

== ENCOUNTER 2024-12-28 07:00 | Outpatient (RCR) | payer MEDICARE, OTHER, SELFPAY ==
--- NOTE | 2024-10-12 07:57 | HP.PTEVAL_ITS ---
Patient's Visit Information Visit Information Visit Information: LAUREN KELLY is a 74 year old M referred to Physical Therapy by Dr. Veena Feliciano DO with a diagnosis of balance issues. Date of Evaluation: 10/12/24 Physical Therapist: Tulio Peter, DPT, OCS, CSCS Visit Plan Frequency: 2x /Week Duration: 4-6 Weeks Plan: balance assessment on biodex then 2x/week for 3-4 weeks to teach weight shifts, vestibular and appropriate NALINI ex to add to current strength routine. Tried to show leg press heel raises today and soleus machine but not strong enough to move them, will continue with GTB PF and seated heel raises with weight at home. Subjective Subjective: F/u with Dr. Feliciano for regular follow up. She does not like the way he shifts backwards and walks on heels. No pain, No dizzyness. Has Neuropathy and they think it is from his back. Has seen Dr. Duggan for this and thinks it is from back. it got better after fusion 2 yrs ago L45. it is unchanging since then. Takes care of granddaughter on fridays. Works out 3days per week or 2 if busy on machines and does Tue and senior strength class. Some sitting and some standing . Nustep 30 min. Raking and some activity at home, only one fall in last month and that was tripping on a throw rugs, did not get injured. Did hurt knees a bit, R knee has OA. Bending to pick things up requires holding on. otheerwise dangerous. Can't lift heavy objects like granddaughter. Pool chemicals are heavy also and he kicks them. Using cane on irregular surfaces. Sometimes for longer distances. Objective Objective: L 26# PF, and R 52# PF. PF very weak. Other ankle aROM WFL. knee and hip AROM WFL but weakness is obviosu as is neuropathy in gait pattern, pt too weak to push off and unable to heel raise. Keeps weight shifted posterior through heels near posterior limit. SLS is <2 seconds and catches toe stepping up onto foam due to uncomfortable with weight shift lateral. Flexibility is decent adn WFL in L, strength in hips is 3+ abd and ext and 4- flexion and knees are 4- but patient is working on these with gym program and senior strength. pt has been standing and walking like this since well before his back surgery two years ago and has made improvements in strength javier [place] since then but has not been working on weight shifts or balance. coordination to reciprocal toe and heel tap is OK albeit weak. Sensation LE to gross light touch is normal, brace on R ankle to avoid turning it helps stabilize ankle. reflexes 0 achilles B, 1/3 patella. Weakness evident in hip and knees funcitonally descending steps and tends to keep weight shifted BW and avoid the front of feet., Requires rail. Balance/Special Test Scores Functional Gait Assessment Score: 20 % Disability: 33.3400 CATSIB Score (Max score 120 seconds): 70 Lower Extremity Functional Score: 40 Goals Goal 1:: I appropriate weight hift and balance ex to limit future problems Goal Time Frame: 4-6 Weeks Goal 2:: Stand away from posterior limit of stability without VC. Goal Time Frame: 4-6 Weeks Goal 3:: Step up onto foam and stand eo for 30 seconds safe adn I Goal Time Frame: 4-6 Weeks Goal 4:: Pt fel 33% better in overall balance Goal Time Frame: 4-6 Weeks Rehabilitation Potential Physical Therapy Diagnosis: poor weight shift and strength in PF causing balance deficits due to neuropathy. Strengthening well but needs balance ex for optimal management. Rehabilitation Potential: Questionable Anticipated Interventions Patient/Client Instruction: Educate patient on: Condition and Plan of Care For the Purpose of:: To improve gait and locomotor functions and To improve safety Therapeutic Exercise to Include: Strength training, Balance training and Coordination For the Purpose of:: To increase tolerance to activity/condition/position, To improve gait and locomotor functions and To improve safety Text: Thank you for the opportunity to evaluate your patient. For Medicare and Medicare HMO plans, please review the plan of care and approve it. It will need to be FAXED BACK to us at [phone] for Medicare purposes. For Medicare only, by signing this I certify the plan of care. Please let me know if there are questions or concerns regarding this plan of care. Physician Signature: Date :
--- NOTE | 2024-10-29 08:01 | HP.PTCOM ---
PT Communication Note 10/29/[address] Veena Feliciano, DO , Thank you for the referral of Shahzad Woods to [facility] for [facility] balance assessment. I have enclosed a copy for your review. In summation, he had multiple loss of balance particularly in the forward direction on the CTSIB and unable to stand still on foam. He score low on the forward weight shift portion of the Limits of stability test but improved on the from 3 years ago. He scored slightly worse on the backwards shifting portion then 3 years ago. With these results in mind, I plan to see him for the 2x/week for 3-4 week plan to instruct and progress forward and backward weight shift exercises,v vestibular and somatosensory balance ex and progress to add to his current independent strength program which he is compliant with. if there are question regarding his physical therapy, please feel free to contact me. Thank you. Sincerely, ANTHONY ThomasT, OCS, CSCS Contact Information
--- NOTE | 2024-11-05 08:52 | HP.PTEVAL2 ---
Patient's Visit Information Visit Information Visit Information: LAUREN KELLY is a 74 year old M referred to Physical Therapy by Dr. Veena Feliciano DO with a diagnosis of varus deformity L knee and contusion. B knee OA. Date of Evaluation: 11/05/24 Physical Therapist: Tulio Peter, DPT, OCS, CSCS Visit Plan Frequency: 1x/Week Duration: 4-6 Weeks Plan: weekly x 2-4 for STM and desensitization massage to L lateral and anterior knee with quad stretch and ITB stretch., Pt has other chart for balance also Subjective Subjective: Pt being seen for balance issues from PCP and that medical information is valid for new chart. He returns today with a prescription for knee OA from Ortho doctor with varus deformity L knee and contusion. I tripped on rug and landed on knees. saw doctor for L knee soreness and has contusion. Wants to strengthen knees. Knees are fine pain hughes outside on L knee anteriorly up to 8/10 transiently. Still walks on it fairly good and not noticeable when walking unless bumps it. Moves pretty well. Doesn't keep him from doing anything. Tripped as he was carrying things in both hands on throw rugs. Fall was September 19. Pain is improving. Already doing good workout in gym for hip flexion, abd x2, leg press, knee ext, knee flexion, Pain L knee: Intensity: 0 Pain Intensity Range: 0 and 8 Objective Objective: L knee tender max laterally at patella adn into ITB. ROM 0-130 B with some L knee anterior pain at nd range flexion, quad mildly tight L vs R. strength hips 4-, knees 4/5. patella moving well adn without pain. Overall very sensitive to touch on L antterior lateral knee but moves wella dn good and strong, already has excellent streength program that he has been doing for a while, reviewed that today. Goals Goal 1:: Abolish tenderness with palpation L anterior knee. Goal Time Frame: 2-4 Weeks Rehabilitation Potential Physical Therapy Diagnosis: L knee tenderness effecting comfortable function Rehabilitation Potential: Fair Anticipated Interventions Patient/Client Instruction: Educate patient on: Condition and Plan of Care For the Purpose of:: To increase ROM, To improve nutrient delivery to tissue, To improve muscle performance and motor function, To increase tolerance to activity/condition/position and To improve gait and locomotor functions Therapeutic Exercise to Include: Flexibilty training For the Purpose of:: To decrease pain Manual Therapy Techniques to Include: Soft tissue mobilization For the Purpose of:: To decrease pain, To increase ROM, To improve nutrient delivery to tissue and To increase tolerance to activity/condition/position Thermo therapy (hot pack): Yes For the Purpose of:: To decrease pain text: Thank you for the opportunity to evaluate your patient. For Medicare and Medicare HMO plans, please review the plan of care and approve it. It will need to be FAXED BACK to us at [phone] for Medicare purposes. For Medicare only, by signing this I certify the plan of care. Please let me know if there are questions or concerns regarding this plan of care. Physician Signature: Date:
--- NOTE | 2024-11-21 08:46 | HP.PTDCSUM ---
Discharge Summary D/C summary: It has been my pleasure to treat LAUREN KELLY referred by Dr. Veena Feliciano DO, with the diagnosis of balance issues for a total of 8 visit(s). Discharge Date: 11/21/24 Please see the following information for a summary of their discharge status. Subjective Subjective: I feel much better. balanced is improving. 50% better. HEP: chair stands, in pool stretching and strengthening, step ups, Feels like he can do the exercises. Overall Improvement % Improvement: 50 Objective Objective/Function: weakness in PFers limits ability with correction with FW weight shift Foam ec 3 sec and foam eo 15 seconds but tends posterior. Good with exercises Goals Goal 1:: I appropriate weight hift and balance ex to limit future problems Goal Progress: Goal Met Goal 2:: Stand away from posterior limit of stability without VC. Goal Progress: Progressing Goal 3:: Step up onto foam and stand eo for 30 seconds safe adn I Goal Progress: Not Progressing Goal 4:: Pt fel 33% better in overall balance Goal Progress: 50% Plan Plan: d/c D/C Information Discharge Comments: to I program. d/c sentence: If there are questions or concerns regarding this patient's physical therapy, please feel free to call me at [phone]. Thank you for the referral of this patient. Sincerely, Tulio Peter, DPT, OCS, CSCS Balance/Gait/Functional tests Balance/Special Test Scores Functional Gait Assessment Score: 22 % Disability: 26.6700 CATSIB Score (Max score 120 seconds): 70 Lower Extremity Functional Score: 40 Improvement % Improvement: 50
--- NOTE | 2024-12-28 07:21 | HP.PTDCS(2) ---
Discharge Summary D/C Summary: It has been my pleasure to treat LAUREN KELLY referred by Dr. Veena Feliciano DO, with the diagnosis of varus deformity L knee and contusion. B knee OA for a total of 1 visit(s). Discharge Date: 12/28/24 Please see the following information for a summary of their discharge status. Subjective Subjective: Has been camping and no balance problems but has fallen once with ankle turning, wears brace now adn no problem with that. Balance is much bettere. walking at grass in backyard with cane. Knee is not a problem. F/u with Yuli in 3 weeks. Overall Improvement % Improvement: 95 Objective Objective/Function/Assessment: 0-130 AROM slight tenderness L lateral joint line, anterior is OK. Walking well adn without antalgia, still has gait deviations from his neuropathy which is normal for him. Goals Patient Goals: Decrease Pain Goal 1:: Abolish tenderness with palpation L anterior knee. Goal Progress: Goal Met Plan Plan: d/c to gym strength D/C Information d/c sentence: If there are questions or concerns regarding this patient's physical therapy, please feel free to call me at [phone]. Thank you for the referral of this patient. Sincerely, Tulio Peter, DPT, OCS, CSCS Balance/Special Test Scores Improvement % Improvement: 95
== END 2024-12-28 19:00 | disposition home or self-care (01) ==
LOC: PT 07:00
PROVIDERS: PCP Internal Medicine; Referring Provider Internal Medicine; Visit Provider Internal Medicine
DX: R26.89 Other abnormalities of gait and mobility (principal)
CPT/HCPCS: 97035; 97110; 97140; 97161; 97162; 97164; 97530; 97750

== ENCOUNTER → 2025-01-10 | Outpatient (CLI) | payer MEDICARE, OTHER, SELFPAY ==
--- NOTE | 2025-01-10 07:57 | CT_ITS ---
PROCEDURE: CTA ABD/PELVIS W/WO CONTRAST 01/10/2025 REASON FOR EXAM: ABDOMINAL PAIN TECHNIQUE: CTA ABD/PELVIS W/WO CONTRAST Multiplanar Sagittal and Coronal images were obtained. 3D reconstructions were performed CONTRAST: 94 cc VOLUME: Isovue 370 mL One or more dose reduction techniques were used (e.g., Automated exposure control, adjustment of the mA and/or kV according to patient size, use of iterative reconstruction technique). RADIATION DOSE SUMMARY: CTDlvol: 35.62 mGy DLP: 1118 mGycm FINDINGS: The angiographic study demonstrates normal distal thoracic aorta. Calcified plaque at the origin of the celiac artery and superior mesenteric artery which are both patent. Calcified plaque at the origin of the right renal artery. No abdominal aneurysm. No abdominal dissection. Prior lumbar surgery. Arterial phase images of the liver, spleen and pancreas are unremarkable. No hydronephrosis or renal mass. No retroperitoneal adenopathy. No bowel obstruction, free fluid or free air. CT/CTA Abd/Pelvis W/WO Contrast IMPRESSION: Calcified plaque at the origin of the right renal artery, celiac artery and sup erior mesenteric artery. Prior lumbar surgery. No other significant abnormality Reading [facility]
[2025-01-10 08:36] LABS: CREATININE FINGERSTICK < 1.0 mg/dL (0.70-1.30); EGFR FINGERSTICK > 60.0000 mL/min (>60)
== END | disposition home or self-care (01) ==
PROVIDERS: PCP Internal Medicine; Referring Provider Internal Medicine; Visit Provider Internal Medicine
DX: R10.9 Unspecified abdominal pain (principal)
CPT/HCPCS: 74174; Q9967

== ENCOUNTER 2025-04-12 12:13 | Outpatient (CLI) | payer MEDICARE, OTHER, SELFPAY ==
[2025-04-12 12:17] LABS: Mucous, Urine 0 SEEN /hpf (<or=2+); Red Blood Cells-Urine 0 SEEN /hpf (0-5); Squamous Epithelial Cells - UA 0 SEEN /hpf (0-5)
[2025-04-12 12:26] LABS: Color, Urine Yellow (Yellow); Glucose, Dipstick Normal (Normal); Ketone-Dipstick Negative (Negative); Leukocyte Esterase-Dipstick Negative /ul (Negative); Nitrite-Dipstick Negative (Negative); Occult Blood-Urine Negative /ul (Negative); Protein-Dipstick 15 mg/dl (Negative); Specific Gravity, Urine 1.010 (1.002-1.030); Urine Bilirubin Dipstick Negative (Negative)
[2025-04-12 12:36] LABS: Hematocrit 46.4 % (40-54); Hemoglobin 14.7 g/dL (13.0-16.5); Immature Granulocytes Count 0.220 X10^3/uL (0.0-0.0); Mean Corp Hgb Conc 31.7 g/dL (32-36); Mean Corpuscular Volume 89.7 fL (80-94); Mean Platelet Vol. 11.3 fl (6.2-12.0); NRBC Flagged by Analyzer 0 % (0-5); Platelet Count 232 K/mm3 (150-450); RBC Distribution Width CV 15.5 % (11.6-14.6); RBC Distribution Width SD 50.8 fl (35.1-43.9); Red Blood Count 5.17 M/mm3 (4.6-6.2); White Blood Count 13.2 K/mm3 (4.4-11.0)
[2025-04-12 12:47] LABS: Creatinine, Urine (random) 30.30 mg/dL (39.00-259.00); Microalbumin,Random Urine 23.7 mg/L (<20 mg/L)
[2025-04-12 12:54] LABS: AST(SGOT) 44 U/L (<=37); Alanine Aminotransfer ALT/SGPT 60 U/L (<=46); Albumin, Serum 4.4 g/dL (3.4-4.8); Alkaline Phosphatase 96 U/L (40-129); Anion Gap 15 (5-15); BUN 29 mg/dL (4-19); BUN/Creat Ratio 27.3 RATIO (10-20); Calcium,Total 9.2 mg/dL (7.6-11.0); Carbon Dioxide 23.1 mmol/L (21.0-32.0); Chloride 100 mmol/L (98-108); Globulin 2.2 g/dL (2.2-4.2); Glucose 101 mg/dL (70-99); Potassium 4.4 mmol/L (3.3-5.1)
== END 2025-04-12 23:59 | disposition home or self-care (01) ==
LOC: LABSPEC 12:13
PROVIDERS: PCP Internal Medicine; Referring Provider Internal Medicine; Visit Provider Internal Medicine
DX: I11.9 Hypertensive heart disease without heart failure (principal); K76.0 Fatty (change of) liver, not elsewhere classified
CPT/HCPCS: 80053; 81001; 82043; 82105; 82570; 85025

== ENCOUNTER → 2025-05-03 | Outpatient (CLI) | payer MEDICARE, OTHER, SELFPAY ==
--- NOTE | 2025-05-03 08:05 | US_ITS ---
PROCEDURE: ABD LIMITED W/ ELASTOGRAPHY 05/03/2025 REASON FOR EXAM: ABD LIMITED W/ ELASTOG TECHNIQUE: Procedure Code: [id number] Modality: US Procedure: ABD LIMITED W/ ELASTOGRAPHY COMPARISON: January 10, 2025 FINDINGS: Liver: Liver is mildly echogenic. There is partial loss of periportal echoes. Acoustic penetration is reasonable. No mass is seen. Main portal vein is patent and hepatopetal. Elastography: Median velocity value: KPa: 5.1 / 1.29 m/s IQR/Med: 16.3%/8.1 m/s Metavir Score: F0-F1. Gallbladder: Negative sonographic Snider's sign. Gallbladder is normal. Common bile duct: Normal measuring 4.6 mm. Pancreas: Normal Kidneys: The right kidney measures 11.6 x 6.3 x 5.7 cm. No collecting system dilation, calculus or mass. Peritoneal Findings: No ascites US/ABD Limited w/ Elastography IMPRESSION: 1. Diffuse hepatocellular disease. 2. Metavir score : F0-F1 Note: F0: No fibrosis/no scarring F1: Bzhf-ue-pkszjoez fibrosis. Reading Location: [id number]
== END | disposition home or self-care (01) ==
LOC: US 08:05
PROVIDERS: PCP Internal Medicine; Referring Provider Internal Medicine; Visit Provider Internal Medicine
DX: K76.0 Fatty (change of) liver, not elsewhere classified (principal)
CPT/HCPCS: 76705; 76981

== ENCOUNTER 2025-05-25 17:48 | Emergency (ER) | payer MEDICARE, OTHER, SELFPAY ==
[2025-05-25 17:49] VITALS: BP 131/67; PULSE 63; RESP 18; TEMP 36.5; O2SAT 99; BMI 29.2
--- NOTE | 2025-05-25 18:20 | EDS_ITS ---
HPI History of Present Illness HPI Narrative: Patient presents with left foot pain that has been intermittent. Patient states he gets sharp pains in the plantar and lateral aspect of his left foot. Patient states he is only last for couple seconds but a bit more frequently. Patient denies any trauma or injury. Patient states it is worse whenever he stands and ambulates. Patient denies any paresthesias or weakness. Patient denies any fevers or chills. 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 Persistent atrial fibrillation HEVER on CPAP Pure hypercholesterolemia Essential hypertension Atherosclerotic heart disease of [place] coronary artery without angina pectoris computer terminal operator use of drug Paroxysmal atrial fibrillation Diabetes mellitus type II, controlled Premature ventricular contractions DM2 (diabetes mellitus, type 2) Asthma DVT (deep venous thrombosis) Pulmonary embolism Home Medications ?Medication ?Instructions ?Recorded ?Last Taken ?Type montelukast 10 mg tablet 10 mg PO DAILY BREATHING 03/1408/15/17 History ascorbic acid (vitamin C) 500 mg 500 mg PO DAILY VITAM IN 10/24/17 Unknown History capsule budesonide-formoterol HFA 160 2 puff inhalation Q12H B REATHING 12/11/18 Unknown History mcg-4.5 mcg/actuation aerosol inhaler (Symbicort) acetaminophen 500 mg tablet 2 tab PO TID PRN Pain #1 T AB 01/11/19 Unknown Rx metformin 500 mg tablet 500 mg PO TID DM 09/04/20 Un known History cetirizine 10 mg tablet 10 mg PO DAILY PRN Allergy S ymptoms 09/24/21 Unknown History multivitamin 1 tab PO DAILY VITAMIN 09/20 Unknown History albuterol sulfate 90 mcg/actuation 2 puff inhalation Q 6H PRN 12/23/22 Unknown History aerosol inhaler alirocumab 75 mg/mL subcutaneous 150 mg subcut Q2W Unknown History pen injector (Praluent Pen) coenzyme Q10 400 mg capsule (Co 400 mg PO DAILY Unknown History Q-10) aspirin 81 mg chewable tablet 81 mg PO DAILY HEART HEA LTH 05/31/23 Unknown History cholecalciferol (vitamin D3) 50 5,000 unit PO DAILY TAMIN 05/31/23 Unknown History mcg (2,000 unit) capsule tamsulosin 0.4 mg capsule 0.4 mg PO QHS 05/31/23 Unkno wn History amiodarone 200 mg tablet 200 mg PO DAILY #90 tabs Unknown Rx colchicine 0.6 mg capsule 0.6 mg PO BID PRN 08/16/24 U nknown History losartan 100 mg tablet 100 mg PO DAILY #90 tabs Unknown Rx metoprolol tartrate 25 mg tablet 25 mg PO BID #180 tab s 08/16/24 Unknown Rx apixaban 5 mg tablet (Eliquis) 5 mg PO BID #180 tabs 0 08/21/24 Unknown Rx furosemide 40 mg tablet 40 mg PO BID PRN for edema # 180 08/21/24 Unknown Rx TABLETS gabapentin 300 mg capsule 300 mg PO QHS #10 caps 05/25 Unknown Rx hydrocodone-acetaminophen 5-325mg 1 tab PO Q6H PRN PRN Pain 3 days 05/25/25 Unknown Rx 5mg-325mg #10 TABLETS Allergy/AdvReac Type Severity Reaction Status Date / Time simvastatin AdvReac Severe Myalgias,se Verified 05/25/25 17:50 [place] Family History Father Myocardial infarction CAD (coronary artery disease) Brother Hypertension Surgical History Hx of spinal fusion (~01/04/23) History of cardioversion (10/13/21) H/O coronary artery bypass surgery (~12/17/03) S/P coronary artery bypass graft x 2 Social History Smoking Status: Never smoker alcohol intake: current substance use type: does not use ROS ROS ED Constitutional Constitutional ED: Denies chills or fever(s) Eyes Eyes: Denies blurry vision or change in vision ENT ENT ED: Denies rhinorrhea or sore throat Cardiovascular Cardiovascular: Denies chest pain or palpitations Respiratory/Chest Respiratory/Chest: Reports cough; Denies dyspnea Gastrointestinal Gastrointestinal: Denies nausea or vomiting Genitourinary Genitourinary ED: Denies dysuria or hematuria Musculoskeletal Musculoskeletal: Denies back pain or neck pain Integumentary Denies abscess or rash Neurologic Neurologic: Denies headache(s) or weakness Allergic/Immunologic Allergic/Immunologic ED: Denies mouth swelling or urticaria EXAM Physical Exam Const Vital Signs: 05/25/25 17:49 05/25/25 21:49 Temperature 97.7 F L Temperature Source Oral Pulse Rate 63 68 Respiratory Rate 18 16 Blood Pressure 131/67 H 128/64 H Blood Pressure Mean 88 85 Pulse Ox 99 100 Oxygen Delivery Method Room Air Positive well nourished and well developed Constitutional Narrative: BMI is 29.2. General Appearance ED: well developed and NAD HEENT Reports moist mucous membranes normocephalic and atraumatic Neck full ROM and supple Extremity Extremity Narrative: There is mild tenderness over the plantar and lateral aspects of the left hindfoot, just proximal to the base of the fifth metatarsal. There is no edema or ecchymosis noted. There is no deformity noted. Range of motion was limited in all motions of the left foot secondary to pain. Pedal pulses are equal bilaterally. Sensation was intact to light touch in all digits. Capillary refill was less than 2 seconds in all digits. There is no tenderness over the malleoli or ankle. Neuro oriented x3, CN's II-XII intact bilaterally, moves all extremities and no sensory deficits noted Sensorium / Orientation: alert Motor Exam: strength 5/5 throughout Psych mental status grossly normal MDM MDM MDM Narrative Medical decision making narrative: Differential diagnosis includes occult fracture, neuropathy, electrolyte abnormality, restless limb syndrome, and muscle strain. X-rays of the left foot will be obtained to assess for occult fracture. CBC will be obtained to assess for leukocytosis and anemia. Basic metabolic profile will be obtained to assess for electrolyte abnormality and renal function. Lab Data Attestation: I reviewed the patient's lab results. Lab results narrative: CBC was reviewed and was within normal limits. Basic metabolic profile was reviewed. BUN was slightly elevated at 23. The remainder is within normal limits. Labs: Laboratory Results - last 24 hr 05/25/25 18:45 WBC 8.7 RBC 4.90 Hgb 14.0 Hct 42.1 MCV 85.9 MCH 28.6 MCHC 33.3 RDW Std Deviation 47.7 H RDW Coeff of Enma 15.2 H Plt Count 274 MPV 9.3 Immature Gran % (Auto) 1.300 H Neut % (Auto) 64.1 Lymph % (Auto) 20.7 Milam % (Auto) 9.7 Eos % (Auto) 4.0 Baso % (Auto) 0.2 Absolute Neuts (auto) 5.5 Absolute Lymphs (auto) 1.79 Nucleated RBC % 0 Sodium 140 Potassium 4.6 Chloride 103 Carbon Dioxide 25.6 Anion Gap 12 BUN 23 H Creatinine 0.90 Estim Creat Clear Calc 73.77 Est GFR (MDRD) Non-Af 88 BUN/Creatinine Ratio 25.6 H Glucose 87 Calcium 9.4 Radiography Diagnostic Testing: Clinical Impression(s) from Imaging Studies Foot X-Ray 05/25/25 18:55 IMPRESSION: Degenerative changes as above. Reading Location: [facility] X-rays of the left foot were obtained. There are 3 views. On my independent interpretation, there is no acute fracture. There are some degenerative changes noted. Radiologist also interpreted the x-rays and agrees. Treatment and Re-Evaluation Narrative: Patient was given a dose of morphine. Patient was given a dose of Valium. Patient had minimal improvement with this. Patient was given a dose of gabapentin and a dose of Equality. Patient was feeling somewhat better on reevaluation. Patient was given prescriptions for gabapentin and Equality. Patient was instructed to follow-up with his primary care physician in 3 to 5 days for further evaluation. Patient was instructed to return if worse in any way. Patient understood and was agreeable with the plan. All questions were answered. Discharge Plan Triage Chief Complaint: Lower Extremity Injury ED Provider: Tulio Reyna Dx/Rx/DC Orders Clinical Impression: Peripheral neuropathy, DM2 (diabetes mellitus, type 2), Essential hypertension Instructions: ED Neuropathy, Peripheral Prescriptions: New hydrocodone-acetaminophen 5-325 mg tablet 1 tab PO Q6H PRN PRN (Reason: Pain) 3 Days Qty: 10 0RF gabapentin 300 mg capsule 300 mg PO QHS Qty: 10 0RF No Action ascorbic acid (vitamin C) 500 mg capsule 500 mg PO DAILY Symbicort 160-4.5 mcg/actuation HFA aerosol inhaler 2 puff INHALATION Q12H cetirizine 10 mg tablet 10 mg PO DAILY PRN (Reason: Allergy Symptoms) Praluent Pen 75 mg/mL pen injector 150 mg subcut Q2W Patient Comments: INJECT 1ML SUBCUTANEOUSLY EVERY TWO WEEKS tamsulosin 0.4 mg capsule 0.4 mg PO QHS Patient Comments: TAKE 1 CAPSULE BY MOUTH EVERYDAY AT BEDTIME albuterol sulfate 90 mcg/actuation HFA aerosol inhaler 2 puff inhalation Q6H PRN coenzyme Q10 [Co Q-10] 400 mg capsule 400 mg PO DAILY colchicine 0.6 mg capsule 0.6 mg PO BID PRN amiodarone 200 mg tablet 200 mg PO DAILY Qty: 90 3RF losartan 100 mg tablet 100 mg PO DAILY Qty: 90 3RF metoprolol tartrate 25 mg tablet 25 mg PO BID Qty: 180 3RF montelukast 10 MG tablet 10 mg PO DAILY Patient Comments: ALLERGIES multivitamin Tablet 1 tab PO DAILY Patient Comments: SUPPLEMENT cholecalciferol (vitamin D3) 50 mcg (2,000 unit) capsule 5,000 unit PO DAILY metformin 500 mg tablet 500 mg PO TID acetaminophen 500 MG tablet 2 tab PO TID PRN (Reason: Pain) Qty: 1 0RF aspirin 81 mg tablet,chewable 81 mg PO DAILY Patient Comments: HEART HEALTH Eliquis 5 mg tablet 5 mg PO BID Qty: 180 3RF furosemide 40 mg tablet 40 mg PO BID PRN (Reason: for edema) Qty: 180 3RF Primary Care Provider: Veena Feliciano Referrals: Veena Feliciano DO [Primary Care Provider, Internal Medicine] - 3-5 Days Print Language: [place] Disposition Disposition: Home, Self Care
[2025-05-25 18:49] LABS: Hematocrit 42.1 % (40-54); Hemoglobin 14.0 g/dL (13.0-16.5); Immature Granulocytes Count 0.110 X10^3/uL (0.0-0.0); Mean Corp Hgb Conc 33.3 g/dL (32-36); Mean Corpuscular Volume 85.9 fL (80-94); Mean Platelet Vol. 9.3 fl (6.2-12.0); NRBC Flagged by Analyzer 0 % (0-5); Platelet Count 274 K/mm3 (150-450); RBC Distribution Width CV 15.2 % (11.6-14.6); RBC Distribution Width SD 47.7 fl (35.1-43.9); Red Blood Count 4.90 M/mm3 (4.6-6.2); White Blood Count 8.7 K/mm3 (4.4-11.0)
--- NOTE | 2025-05-25 18:55 | RAD_ITS ---
EXAM: XR Left Foot Complete, 3 or More Views CLINICAL INDICATION: INJURY/PAIN TECHNIQUE: Frontal, lateral and oblique views of the left foot. COMPARISON: No relevant prior studies available. FINDINGS: BONES/JOINTS: Mild degenerative changes of the 1st interphalangeal joints. Mild degenerative changes of the DIP joints. Mild degenerative changes of the in the intertarsal joints. No acute fracture. No dislocation. SOFT TISSUES: Soft tissue swelling. RAD/Foot min 3 Views IMPRESSION: Degenerative changes as above. Reading Location: [id number]
[2025-05-25 19:07] LABS: Anion Gap 12 (7-18); BUN 23 mg/dL (4-19); BUN/Creat Ratio 25.6 RATIO (10-20); Calcium,Total 9.4 mg/dL (7.6-11.0); Carbon Dioxide 25.6 mmol/L (20.0-29.0); Chloride 103 mmol/L (96-106); Estimated Creatinine Clearance 73.77 ml/min (50-250); Glucose 87 mg/dL (70-99); Potassium 4.6 mmol/L (3.5-5.1)
[2025-05-25] MEDS: HYDROcodone Bitartrate/Apap 5/325 Tablet PO (21:02)
[2025-05-25 21:49] VITALS: BP 128/64; PULSE 68; RESP 16; O2SAT 100
[2025-05-25 22:54] VITALS: BP 128/64; PULSE 86; RESP 16; TEMP 36.6; O2SAT 100
== END 2025-05-25 22:55 | disposition home or self-care (01) ==
PROVIDERS: Emergency Provider Emergency Medicine; PCP Internal Medicine; Visit Provider Emergency Medicine
DX: E11.42 Type 2 diabetes mellitus with diabetic polyneuropathy (principal); I48.19 Other persistent atrial fibrillation; I10 Essential (primary) hypertension; Z79.01 Long term (current) use of anticoagulants; Z79.82 Long term (current) use of aspirin; Z79.84 Long term (current) use of oral hypoglycemic drugs; Z79.899 Other long term (current) drug therapy
CPT/HCPCS: 73630; 80048; 85025; 96374; 99284